=== PATIENT | female | born 1945 | race Hispanic/Latino ===

== ENCOUNTER 2018-05-21 14:28 | Inpatient (IN) | payer MEDICAID, SELFPAY ==
[2018-05-21 15:13] LABS: #Eosinphils 0.1 thou/uL (0.0-0.7); #Lymphocytes 0.9 thou/uL (1.20-3.40); #Monocytes 0.5 thou/uL (0.11-0.59); %Basophils 0.4 % (0.0-1.0); %Eosinophils 1.3 % (0.0-10.0); %Lymphocytes 13.8 % (21.0-51.0); %Monocytes 7.6 % (0.0-10.0); %Neutrophils 76.9 % (42.0-75.0); Hemoglobin 12.5 g/dL (12.0-16.0); Mean Corpuscular Hemoglobin 32.2 pg (27.0-31.0); Platelet Count 274 thou/uL (130-400); RBC Distribution Width 12.1 % (11.5-14.5); Red Blood Cell (RBC) Count 3.87 mill/uL (4.20-5.40); White Blood Cell (WBC) Count 6.5 thou/uL (4.8-10.8)
[2018-05-21 15:23] LABS: INR-International Normal Ratio 2.3; PTT 44.2 SEC (22.9-36.1); Prothrombin Time 25.7 SEC (12.0-14.7)
[2018-05-21 15:34] LABS: ALT (SGPT) 10 U/L (8-55); AST (SGOT) 18 U/L (5-34); Albumin 3.7 g/dL (3.4-4.8); Alkaline Phosphatase 49 U/L (40-150); Anion Gap 12 mmol/L (10-20); BUN (Urea Nitrogen) 10 mg/dL (9.8-20.1); Bilirubin, Total 1.6 mg/dL (0.2-1.2); Calc. Creatinine Clearance 0 mL/min (70-130); Calcium 8.9 mg/dL (7.8-10.44); Carbon Dioxide 29 mmol/L (23-31); Chloride 104 mmol/L (98-107); Estimated GFR-MDRD 77; Globulin 3.3 g/dL (2.4-3.5); Glucose 101 mg/dL (83-110); Potassium 3.6 mmol/L (3.5-5.1); Sodium 141 mmol/L (136-145)
[2018-05-21] MEDS ORDERED: Piperacillin/Tazobactam 4.5 GM VIAL ONE (17:20)
--- NOTE | 2018-05-21 18:31 | RAD ---
RIGHT KNEE FOUR VIEWS: HISTORY: Fall. Injury. COMPARISON: None. FINDINGS: There is a small joint effusion. There is extensive prepatellar soft tissue swelling. Advanced levin llofemoral degenerative disease. Mild medial and lateral compartment degenerative changes, including osteophyte formation and subchondral sclerosis. IMPRESSION: 1. Extensive anterior soft tissue swelling may reflect a hematoma given the history of injury. No d isplaced fracture is appreciated. 2. Advanced patellofemoral and moderate medial and lateral compartment degenerative changes. POS: [facility]
--- NOTE | 2018-05-21 19:07 | ULT ---
RIGHT LOWER EXTREMITY VENOUS DOPPLER: HISTORY: Injury. Pain. Edema. Swelling. COMPARISON: None. TECHNIQUE: Real-time, bryant-scale, color Doppler, and spectral analysis of the right lower extremity venous syste m was performed. The common femoral, femoral, proximal portion, greater saphenous, and deep femoral veins, as well as the popliteal and posterior tibial veins were interrogated. FINDINGS: Normal flow, augmentation, and compression. IMPRESSION: 1. No deep venous thrombosis. 2. Mild lower extremity edema. POS: [facility]
[2018-05-21] MEDS ORDERED: Ondansetron ODT 4 MG TAB PO PRN (20:20)
--- NOTE | 2018-05-21 21:05 | PDOC.FPRHP ---
- History of Present Illness Chief Complaint: right leg wound History of Present Illness: Ms. Lemon is a very pleasant 73YO female with a PMH significant for CHF , atrial fibrillation on chronic anticoagulation with warfarin, and bilateral chronic venous insufficiency who presented to the ED with a chief complaint of a right leg wound that has been worsening since she fell at home about 2 weeks ago. The patient is Portuguese speaking only so the history was obtained from her daughters who reported that 2 weeks ago the patient was sweeping in the house and tripped over a broom hitting her right knee on the floor. Since the fall, the patient had significant swelling, bruising and blistering over her right knee. The daughters reported that over the course of the 2 weeks, the blisters burst leaving behind a dark discoloration over her knee. In addition, over the last week they began to notice progressively worsening swelling and erythema that started at her knee and moved all the way down to her ankle. Lastly, for the last 3 days they noticed some discoloration in her toes in her right foot. The patient denies any leg pain other than when her leg is pushed on or touched. She also denies any associated fever, chills, decreased PO intake, or any numbness, tingling, or decreased ROM in her right leg. Daughters also deny seeing any purulent discharge from the room and have been treating it with neosporin and hibiclens at home. Of note, the patient was seen in the [facility] today and was told to come to the ED as she would more than likely require a surgical debridement and wound care in the hospital. ED Course: The patient was given one dose of IV vancomycin and zosyn. General Surgery, Dr. Alegria, was also consulted and made aware of the patient's condition. - Allergies/Adverse Reactions Allergies Allergy/AdvReac Type Severity Reaction Status Date / Time No Known Allergies Allergy Verified 05/21/18 21:55 - Home Medications Medication Instructions Recorded Confirmed Type Cholecalciferol (Vitamin D3) 400 unit PO DAILY 09/16/14 05/21/18 History [Vitamin D3] Furosemide 20 mg PO DAILY 09/16/14 05/21/18 History Simvastatin [Zocor] 10 mg PO HS 09/16/14 05/21/18 History Warfarin Sodium [Coumadin] 5 mg PO DAILY 12/16/14 08/20/18 History Lisinopril 10 mg PO DAILY 05/21/18 05/21/18 History Metoprolol Tartrate [Lopressor] 50 mg PO BID 05/21/18 05/21/18 History Warfarin Sodium 2.5 mg PO Q7DAYS 05/21/18 05/21/18 History - History PMHx: CHF, atrial fibrillation on warfarin for anticoagulation, chronic venous insufficiency in B/L LEs PSHx: Tiffanie, C/S, hysterectomy FHx: Mother- Colon CA Sister - ovarian CA daughter - uterine CA Social: Lives at home with her daughter. Is fully independent with ADLs & IADLs. No history of tobacco, EtOH, or drug use. - Review of Systems General: denies: fever/chills, weight/appetite/sleep changes Eyes: denies: vision changes ENT: denies: nasal congestion Respiratory: denies: cough, shortness of breath Cardiovascular: reports: edema. denies: chest pain Gastrointestinal: denies: nausea, vomiting, diarrhea, constipation, abdominal pain Genitourinary: reports: other (no hematuria). denies: dysuria Skin: reports: lesions, itching Musculoskeletal: reports: tenderness, swelling. denies: pain, stiffness Neurological: denies: numbness, weakness Psychological: denies: anxiety, depression - Vital signs BP: 130/83 HR: 81 RR: 18 Tmax: 98.3F Pox: 96% on RA Wt: 66.7kg - Physical Exam Constitutional: NAD, awake, alert and oriented, well developed HEENT: normocephalic and atraumatic, PERRLA, grossly normal vision, grossly normal hearing, MMM, oropharynx clear, other (B/L cataracts) Neck: supple, FROM, no LAD Heart: RRR, normal S1/S2, no murmurs/rubs/gallops, pulses present Lungs: CTAB, no respiratory distress, good air movement, no rales/rhonchi, no wheezing Abdomen: soft, non-tender, bowel sounds present, no masses/distention Musculoskeletal: ROM grossly normal Neurological: no focal deficit, CN II-XII intact, normal sensation Skin: other (Large [id number] eschar over the right knee. Right lower leg was warm to the touch with ~1+ pitting edema and erythema extending about 48cm down her leg from her knee and 15cm wide. Pulse present in B/L LEs. Normal sensation and ROM in RLE.) Heme/Lymphatic: other (Large ecchymosis over posterior right leg just above the knee and ecchymosis over 2nd-4th digits of right foot.) Psychiatric: normal mood and affect, good judgment and insight, intact recent and remote memory FMR H&P: Results - Labs Result Diagrams: 05/22/18 06:20 05/21/18 15:05 Lab results: WBC 6.5 thou/uL (4.8-10.8) 05/21/18 15:05 Hgb 12.5 g/dL (12.0-16.0) 05/21/18 15:05 Hct 36.8 % (36.0-47.0) 05/21/18 15:05 MCV 95.0 fL (78.0-98.0) 05/21/18 15:05 Plt Count 274 thou/uL (130-400) 05/21/18 15:05 Neutrophils % 76.9 % (42.0-75.0) H 05/21/18 15:05 Sodium 141 mmol/L (136-145) 05/21/18 15:05 Potassium 3.6 mmol/L (3.5-5.1) 05/21/18 15:05 Chloride 104 mmol/L (98-107) 05/21/18 15:05 Carbon Dioxide 29 mmol/L (23-31) 05/21/18 15:05 BUN 10 mg/dL (9.8-20.1) 05/21/18 15:05 Creatinine 0.74 mg/dL (0.6-1.1) 05/21/18 15:05 Glucose 101 mg/dL (83-110) 05/21/18 15:05 Lactic Acid 1.1 mmol/L (0.5-2.2) 05/21/18 15:01 Calcium 8.9 mg/dL (7.8-10.44) 05/21/18 15:05 Total Bilirubin 1.6 mg/dL (0.2-1.2) H 05/21/18 15:05 AST 18 U/L (5-34) 05/21/18 15:05 ALT 10 U/L (8-55) 05/21/18 15:05 Alkaline Phosphatase 49 U/L (40-150) 05/21/18 15:05 Serum Total Protein 7.0 g/dL (6.0-8.3) 05/21/18 15:05 Albumin 3.7 g/dL (3.4-4.8) 05/21/18 15:05 - Radiology Interpretation Other Status: report reviewed by me (R knee x-ray: extensive pre-patellar soft tissue swelling & a small joint effusion) FMR H&P: A/P - Problem List (1) Cellulitis of right lower leg Current Visit: Yes Status: Acute Code(s): L03.115 - CELLULITIS OF RIGHT LOWER LIMB (2) Atrial fibrillation Current Visit: No Status: Acute Code(s): I48.91 - UNSPECIFIED ATRIAL FIBRILLATION (3) CHF (congestive heart failure) Current Visit: Yes Status: Chronic Code(s): I50.9 - HEART FAILURE, UNSPECIFIED Qualifiers: Heart failure chronicity: chronic (4) Hypertension Current Visit: No Status: Chronic Code(s): I10 - ESSENTIAL (PRIMARY) HYPERTENSION (5) Hyperlipidemia Current Visit: No Status: Chronic Code(s): E78.5 - HYPERLIPIDEMIA, UNSPECIFIED - Plan 73YO female with a PMH significant for CHF, atrial fibrillation on warfarin, and chronic venous insufficiency who presented to the ED with a chief complaint of a right leg wound that has gotten progressively worse over the last 2 weeks after falling in her home. 1. RLE cellulitis: - Afebrile with NL WBC count. However, leg appears infected and is warm, erythematous, and edematous compared to the left. Was started on IV vancomycin & zosyn in the ED. Will also continue tylenol PRN for pain. - Will continue BS Abx coverage with vancomycin & zosyn. - Will trend CBCs with AM labs & continue to monitor vitals. - General surgery consulted by ED but an additional consult was ordered by us as well. - Wound care consulted. - Will make NPO after midnight pending possible surgical debridement tomorrow. 2. Atrial fibrillation on warfarin: - INR today in clinic and in the ED was measured at 2.3. - Will continue to monitor QD INR & PT levels. - Will hold tomorrow's warfarin dose pending possible surgery. - Will resume home dosing post-op or sooner if surgery decides on bedside debridement. 3. CHF: - Aware, patient not in acute exacerbation. - Will resume home meds. 4. HTN: - Aware. Will resume home meds. 5. HLD: - Aware. Will resume home meds. FMR H&P: Upper Level - Pertinent history Emperatriz Lemon is a 73 year old female who presents to the ED with a chief complaint of a right lower extremity wound. She fell 2 weeks ago and has noted worsening calf pain and redness one week ago with. She has also had increased eschar over her knee. Patient has been seen in clinic for this wound and outpatient wound care was attempted, but could not be arranged. Patient was seen in clinic earlier this afternoon and was directed to the ED. She has been self-treating the wound with neosporin and hibiclens. She has a history of atrial fibrillation and has been on anticoagulation with Warfarin for several years. She lives at home with her daughter, and is able to complete most ADLs. She denies fevers, chills, and pain. - Pertinent findings Vitals: BP: 110/73 P: 83 SpO2: 95% on RA. T: 98.2 Physical Exam: General: alert and oriented x 3 in no apparent distress. Heart: regular rate and rhythm. Lungs: clear to auscultation bilaterally. Extremities: right lower extremity with 19x10 cm area of eschar over the anterior knee and 48 x 15 cm area area of erthema extending the anterior right leg from just above the right knee to her ankle. Increase warmth in RLE compared to LLE. RLE doppler - negative for DVT RLE x-ray - soft tissue swelling INR: 2.3 WBC: 6.5 - Plan Date/Time: 05/21/182102 Rhea Carvajal, have evaluated this patient and agree with findings/plan as outlined by sourcing intern resident. Pertinent changes/additions are listed here. Cellulitis with central area of necrosis/eschar - continue Vancomycin and Zosyn - General surgery has been consulted for possible debridement. We will hold warfarin in anticipation of procedure. - likely related to trauma from fall; unlikely related to Warfarin necrosis given the fact that she has been on warfarin for several years. - Blood cultures/wound cultures pending. - Wound care has been consulted. Atrial fibrillation - rate controlled. - continue home metoprolol - warfarin held; Heparin gtt. Hypertension - will continue to monitor BPs. - Resume home meds Hyperlipidemia - resume home meds. DVT proph: Heparin gtt.
[2018-05-21] MEDS ORDERED: Heparin 10,000 UNITS/ 10 ML VIAL SLOW IVP SCH (22:15)
[2018-05-21] MEDS ORDERED: Heparin 25,000 units/D5W 500 ML IVPB SCH (22:15)
[2018-05-21 22:23] VITALS: BMI 27.4
[2018-05-21 22:28] LABS: Hemoglobin 11.4 g/dL (12.0-16.0); Platelet Count 250 thou/uL (130-400)
--- NOTE | 2018-05-21 22:46 | PDOC.EVN ---
Event Note - Event Note Event Note: 73 yo LAF with h/o a-fib on warfarin, CHF, venous insufficiency presents from clinic for redness, swelling of her right lower extremity. Patient has history of fall onto her knee 2 weeks ago. She then developed skin blisters which eventually popped and the skin sloughed. She noticed redness extending down her leg for last 3-4 days. Denies any fever/chills. Denies any pain. Has been able to ambulate without difficulty. PMH/PSH/Meds/All/SH reviewed and agree with resident's documentation. Afebrile P87 RR18 BP 135/86 O2=95% RA Exam repeated by me and agree with resident's documentation- significant for large eschar over knee; area of erythema and warmth over anterior lower leg. (+) edema. Nontender. Labs WBC=6.5, PT/INR= 25.7/2.3, PTT=44.9; lactic acid= 1.1. Venous doppler- negative for DVT; Knee x-ray- extensive soft tissue dwelling. A/P: 1) Left knee swelling and wound with large eschar/cellulitis- continue vanc /zosyn. Wound care consult. Surgery consult in AM for possible debridement. 2) Warfarin therapy- has been on warfarin for many years; unlikely to have warfarin skin necrosis; hold for now in anticipation of possible surgery 3) A-Fib- hold warfarin and start heparin.
[2018-05-21] MEDS: Piperacillin/Tazobactam 3.375 GM in Sodium Chloride 0.9% 100 ML IVPB SCH (23:59)
--- NOTE | 2018-05-22 06:04 | PDOC.FM ---
- Subjective Subjective: No acute events overnight. Patient states RLE is no longer painful. Per daughters who were at the bedside, the RLE redness has decreased significantly. Patient denies any SOB, chest or abdominal pain, subjective fever, NVD. - Objective Vital Signs & Weight: Vital Signs (12 hours) Temp Pulse Resp BP Pulse Ox 05/22/18 00:28 98.5 F 75 18 94/57 L 95 05/21/18 20:20 98.5 F 75 18 135/86 95 Weight Weight 65.913 kg Result Diagrams: 05/22/18 06:20 05/21/18 15:05 <Minerva Rodriguez - Last Filed: 05/22/18 12:02> - Objective Vital Signs & Weight: Vital Signs (12 hours) Temp Pulse Resp BP BP BP Pulse Ox 05/22/18 12:14 97.8 F 80 16 96/67 97 05/22/18 08:36 98.4 F 80 16 133/76 94 L 05/22/18 07:25 98.4 F 80 16 133/76 94 L 05/22/18 04:23 98.2 F 76 18 122/74 95 05/22/18 00:28 98.5 F 75 18 94/57 L 95 Weight Admit Weight 65.913 kg Weight 65.913 kg Result Diagrams: 05/22/18 06:20 05/21/18 15:05 <Jose D Lester - Last Filed: 05/22/18 12:30> Phys Exam - Physical Examination Constitutional: NAD resting comfortably HEENT: PERRLA, moist MMs, sclera anicteric bilateral cataracts Neck: no JVD, supple, full ROM Respiratory: no wheezing, no rales, clear to auscultation bilateral Cardiovascular: RRR, no significant murmur, no rub Gastrointestinal: soft, non-tender, no distention, positive bowel sounds RLE pulses faint, 1+ nonpitting edema in RLE strength intact in BLE Neurological: normal sensation, moves all 4 limbs Psychiatric: A&O x 3 Deviation from normal: RLE warm to touch with erythema, ecchymosis in toes -: Large [id number] eschar over the right knee; dry <Minerva Rodriguez - Last Filed: 05/22/18 12:02> Dx/Plan (1) Cellulitis of right lower leg Code(s): L03.115 - CELLULITIS OF RIGHT LOWER LIMB Status: Acute (2) Atrial fibrillation Code(s): I48.91 - UNSPECIFIED ATRIAL FIBRILLATION Status: Acute (3) CHF (congestive heart failure) Code(s): I50.9 - HEART FAILURE, UNSPECIFIED Status: Chronic Qualifiers: Heart failure chronicity: chronic (4) Hyperlipidemia Code(s): E78.5 - HYPERLIPIDEMIA, UNSPECIFIED Status: Chronic (5) Hypertension Code(s): I10 - ESSENTIAL (PRIMARY) HYPERTENSION Status: Chronic - Plan Plan: 73YO female with a PMH significant for CHF, atrial fibrillation on warfarin, and chronic venous insufficiency who presented to the ED with a chief complaint of a right leg wound that has gotten progressively worse over the last 2 weeks after falling in her home. Plan is for debridement today -we will f /u s/p procedure. RLE cellulitis - Afebrile with NL WBC count. However, RLL is warm, erythematous, and edematous compared to the left. Was started on IV vancomycin & zosyn in the ED. Will also continue tylenol PRN for pain. - Will continue BS Abx coverage with vancomycin & zosyn. - Will trend CBCs with AM labs & continue to monitor vitals. - General surgery consulted - Wound care consulted - Will make NPO after midnight pending possible surgical debridement tomorrow. Atrial fibrillation on warfarin - INR today in clinic and in the ED was measured at 2.3->2.5. - Will continue to monitor QD INR & PT levels. - Heparin drip stopped. Will start heparin 5000 TID. 1gm Vit K administered to get INR subtherapeutic before debridement procedure. - Will resume home dosing post-op or sooner if surgery decides on bedside debridement. CHF - Patient not in acute exacerbation. - Will resume home meds. HTN - Will resume home meds. HLD - Will resume home meds. DISPO: likely stay a few days. We will proceed with wound care, gen surg and ortho recs CODE: DNR Case discussed with Trevon <Minerva Rodriguez - Last Filed: 05/22/18 12:02> Attending Addendum - Attending Addendum Date/Time: 05/22/18 1222 I personally evaluated the patient and discussed the management with Dr. Rodriguez. I agree with the History, Examination, Assessment and Plan documented above with any addition or exceptions noted below. Patient here with very significant skin necrosis and eschar over the R knee. General Surgery has been consulted who recommends Ortho, so we will get them on board. Continue antibiotics for her likely cellulitis, Vanc and Zosyn. Will transition to Heparin and off warfarin for now, and give Vitamin K to help make her INR more appropriate for surgery. Pain control as needed. <Jose D Lester - Last Filed: 05/22/18 12:30>
[2018-05-22] MEDS: Piperacillin/Tazobactam 3.375 GM in Sodium Chloride 0.9% 100 ML IVPB SCH ×3 (06:07→17:56)
[2018-05-22] MEDS: Vancomycin HCl 1 GM in Premix Bag 1 BAG IVPB SCH ×2 (06:13→17:59)
[2018-05-22 06:31] LABS: #Basophils 0.1 thou/uL (0.0-0.2); #Eosinphils 0.2 thou/uL (0.0-0.7); #Lymphocytes 0.9 thou/uL (1.20-3.40); #Monocytes 0.4 thou/uL (0.11-0.59); #Neutrophils 3.8 thou/uL (1.40-6.50); %Basophils 0.9 % (0.0-1.0); %Eosinophils 3.3 % (0.0-10.0); %Lymphocytes 17.1 % (21.0-51.0); %Monocytes 8.1 % (0.0-10.0); %Neutrophils 70.6 % (42.0-75.0); Hemoglobin 11.1 g/dL (12.0-16.0); Mean Corpuscular HGB CONC 33.8 g/dL (32.0-36.0); Mean Corpuscular Hemoglobin 32.2 pg (27.0-31.0); Mean Corpuscular Volume 95.2 fL (78.0-98.0); Mean Platelet Volume 6.9 fL (7.4-10.4); Platelet Count 241 thou/uL (130-400); Red Blood Cell (RBC) Count 3.46 mill/uL (4.20-5.40); White Blood Cell (WBC) Count 5.4 thou/uL (4.8-10.8)
[2018-05-22 06:44] LABS: INR-International Normal Ratio 2.5; Prothrombin Time 27.4 SEC (12.0-14.7)
--- NOTE | 2018-05-22 08:07 | CON ---
DATE OF CONSULTATION: 05/22/2018 CHIEF COMPLAINT: Cellulitis and necrosis of right knee. HISTORY OF PRESENT ILLNESS: The patient is a 73-year-old female who tripped over a broom and fell ag ainst her right knee, developed a hematoma as she is on Coumadin. Over time she developed not only b listers, but necrosis of the skin in this area, then she developed lower leg swelling and erythema, n o fever. PAST MEDICAL HISTORY: Congestive heart failure, atrial fibrillation, chronic anticoagulation, venous insufficiency. PAST SURGICAL HISTORY: Cholecystectomy, section, total abdominal hysterectomy. FAMILY HISTORY: Colon cancer, ovarian cancer, uterine cancer. SOCIAL HISTORY: She speaks Urdu only. Lives with her daughter. No tobacco or alcohol. PHYSICAL EXAMINATION: VITAL SIGNS: Temperature 98.4, pulse 80, blood pressure 133/76. GENERAL: She is an elderly female, lying still. HEENT: She has some alopecia. LUNGS: Clear. HEART: Regular rate and rhythm. ABDOMEN: Soft, nondistended, nontender. EXTREMITIES: She has a palpable femoral pulse on the right lower leg, there is an x 15 cm necrotic e schar on the anterior surface overlying the knee. There is soft tissue swelling and erythema that ex tends to the foot. The dorsalis pedis pulse on the right is faintly palpable. It is easily palpable on the left. She has cellulitis that extends to the foot and some ecchymosis of the middle toes 2 t hrough 4. LABORATORY AND X-RAY FINDINGS: Her white count is 5.4, H&H 11 and 33, platelet count 241. Electroly anamaria are fine. She had a culture of the area that was negative. Her PT is 27.4 with an INR of 2.5, a nd she is also on a heparin drip. She had a vascular ultrasound showing no DVT. ASSESSMENT: Necrotic eschar of the right knee. PLAN: Consultation to Orthopedics to ensure that the joint is not involved. Also, will need to allo w her Coumadin to reverse, then she will probably need debridement with a wound VAC. Continue antibi otics and elevation.
[2018-05-22] MEDS: Furosemide 20 MG TAB PO SCH (08:36)
[2018-05-22] MEDS: Metoprolol Tartrate 50 MG TAB PO SCH ×2 (08:36→21:19)
[2018-05-22] MEDS: Lisinopril 10 MG TAB PO SCH (08:36)
[2018-05-22] MEDS: Cholecalciferol (Vitamin D3) 400 UNITS TAB PO SCH (08:36)
[2018-05-22] MEDS ORDERED: Phytonadione 1 MG in Sodium Chloride 0.9% 50 ML IVPB SCH (10:30)
[2018-05-22] MEDS: Acetaminophen 325 MG TAB PO PRN (10:41)
--- NOTE | 2018-05-22 14:21 | CON ---
DATE OF CONSULTATION: 05/22/2018 CHIEF COMPLAINT: Right knee pain. HISTORY OF PRESENT ILLNESS: Ms. Lemon is a pleasant 73-year-old female. She is on warfarin chronical ly. She has atrial fibrillation. She had a contusion to the anterior knee approximately 2 weeks ago . This became extremely swollen and she developed a large hematoma. She developed blistering as wel l. Over the last 2 weeks, she has had a worsening skin condition with eschar formation. She present ed with a large blackened eschar with surrounding erythema and warmth. She has been admitted to the hospital. She is on vancomycin and Zosyn currently. Her family is at the bedside. PAST MEDICAL HISTORY: Chronic atrial fibrillation on warfarin, venous insufficiency of the bilateral lower extremities and congestive heart failure. PAST SURGICAL HISTORY: Cholecystectomy, hysterectomy, and section. FAMILY MEDICAL HISTORY: Colon cancer. SOCIAL HISTORY: The patient lives with her family. She denies tobacco, alcohol, or drug use. REVIEW OF SYSTEMS: Positive for right leg pain, otherwise negative for 10-point review of systems. PHYSICAL EXAMINATION: VITAL SIGNS: Temperature is 97.8, pulse is 80, respiratory rate 16, and blood pressure is 96/67. GENERAL: She is sitting upright at the edge of the bed. No apparent distress. Family was with her. HEENT: Normocephalic, atraumatic. RESPIRATORY: Breathing comfortably. ABDOMEN: Soft, nontender, nondistended. CARDIOVASCULAR: Pulses are palpable peripherally. MUSCULOSKELETAL: The patient's right knee has edematous appearance extending down to the ankle and f oot. She has erythema from the foot up to the knee. She is slightly tender to palpation along the a nterior skin. She is able to flex and extend the foot and ankle. She has a large approximately 15 c m eschar over the anterior medial knee, this appears to be full-thickness skin loss. The eschar is d ry. There is no purulence. No pus is evident. She is able to flex and extend the knee. There are no open wounds except for the eschar. IMPRESSION: Large eschar with skin necrosis from hematoma in a patient with anticoagulation. PLAN: At this point, I think the patient should continue her intravenous antibiotics. She should co ntinue these until she has clear response and hopefully can be converted to oral antibiotics. Regard ing her necrotic skin and eschar, for now I would leave this alone. If this stays dry, we can serve as a protective barrier and hopefully she will heal underneath the eschar. I would expect the edges of the eschar to began to peel back as she heals. If she developed a wet eschar with infection under neath this would need to be surgically debrided. This would put her at risk for having an open knee joint. She would need skin grafting at this point as well. For now, the best treatment again will b e nonoperative, continuing antibiotics and wound care as needed. We will continue to follow.
[2018-05-22] MEDS: Heparin 5,000 UNITS/ML VIAL SC SCH ×2 (15:51→21:16)
[2018-05-22] MEDS ORDERED: Non-Formulary Item 1 EACH (Simvastatin [Zocor] 10 MG) PO SCH (21:00)
[2018-05-22] MEDS: Simvastatin 20 MG TAB PO SCH (21:13)
[2018-05-23] MEDS: Piperacillin/Tazobactam 3.375 GM in Sodium Chloride 0.9% 100 ML IVPB SCH ×5 (00:21→23:43)
--- NOTE | 2018-05-23 05:31 | PDOC.FM ---
- Subjective Subjective: No events overnight. States her pain is improved and she does feel a throbbing sensation on her medial right knee. No other complaints. She was able to ambulate to the bathroom and had a BM. She denies extremity pain, SOB, chest or abdominal pain, fever, or NVD. - Objective Vital Signs & Weight: Vital Signs (12 hours) Temp Pulse Resp BP Pulse Ox 05/23/18 04:49 98.1 F 62 20 133/77 95 05/23/18 00:20 97.8 F 65 20 116/69 92 L 05/22/18 21:16 98.3 F 72 24 H 94 L 05/22/18 21:07 98.3 F 72 24 H 115/70 94 L Weight Admit Weight 65.913 kg Weight 65.913 kg I&O: 05/21/18 05/22/18 05/23/18 06:59 06:59 06:59 Intake Total 1130 Balance 1130 Result Diagrams: 05/23/18 05:28 05/23/18 05:28 <Minerva Rodriguez - Last Filed: 05/23/18 10:09> - Objective Vital Signs & Weight: Vital Signs (12 hours) Temp Pulse Resp BP BP BP Pulse Ox 05/23/18 11:36 97.9 F 70 16 103/68 99 05/23/18 08:53 124/77 05/23/18 07:18 97.9 F 85 18 124/77 91 L 05/23/18 04:49 98.1 F 62 20 133/77 95 05/23/18 00:20 97.8 F 65 20 116/69 92 L Weight Admit Weight 65.913 kg Weight 65.913 kg I&O: 05/22/18 05/23/18 05/24/18 06:59 06:59 06:59 Intake Total 1910 Balance 1910 Result Diagrams: 05/23/18 05:28 05/23/18 05:28 <Jose D Lester - Last Filed: 05/23/18 12:14> Phys Exam - Physical Examination Constitutional: NAD resting comfortably HEENT: PERRLA, moist MMs, sclera anicteric Neck: no JVD, supple, full ROM Respiratory: no wheezing, no rales, no rhonchi, clear to auscultation bilateral Cardiovascular: RRR, no significant murmur, no rub Gastrointestinal: soft, non-tender, positive bowel sounds Musculoskeletal: pulses present Neurological: non-focal, normal sensation, moves all 4 limbs Psychiatric: A&O x 3 Skin: no rash Deviation from normal: large eschar on right knee, erythematous on lower leg -: sensation and strength intact <Minerva Rodriguez - Last Filed: 05/23/18 10:09> Dx/Plan (1) Cellulitis of right lower leg Code(s): L03.115 - CELLULITIS OF RIGHT LOWER LIMB Status: Acute (2) Atrial fibrillation Code(s): I48.91 - UNSPECIFIED ATRIAL FIBRILLATION Status: Acute (3) CHF (congestive heart failure) Code(s): I50.9 - HEART FAILURE, UNSPECIFIED Status: Chronic Qualifiers: Heart failure chronicity: chronic (4) Hyperlipidemia Code(s): E78.5 - HYPERLIPIDEMIA, UNSPECIFIED Status: Chronic (5) Hypertension Code(s): I10 - ESSENTIAL (PRIMARY) HYPERTENSION Status: Chronic - Plan Plan: 73YO female with a PMH significant for CHF, atrial fibrillation on warfarin, and chronic venous insufficiency who presented to the ED with a chief complaint of a right leg wound that has gotten progressively worse over the last 2 weeks after falling in her home. RLE cellulitis - Afebrile with NL WBC count. - Will continue BS Abx coverage with IV vancomycin & zosyn. - Will trend CBCs with AM labs & continue to monitor vitals. - General surgery consulted: recommend wound vac and consulted ortho and wound care - Ortho recs: continue IV abx, no debridement at this time - Wound care consulted - Will touch base with specialists for how to proceed Atrial fibrillation on warfarin - INR today in clinic and in the ED was measured at 2.3->2.5->1.4 - Will continue to monitor QD INR & PT levels. - On start heparin 5000 TID. Will touch base with gen surgery to see if we can start back on warfarin. CHF - Patient not in acute exacerbation. - Will resume home meds. HTN - Will resume home meds. HLD - Will resume home meds. DISPO: likely stay a few days. We will proceed with wound care, gen surg and ortho recs CODE: DNR Case discussed with Trevon <Minerva Rodriguez - Last Filed: 05/23/18 10:09> Attending Addendum - Attending Addendum Date/Time: 05/23/18 1213 I personally evaluated the patient and discussed the management with Dr. Rodriguez. I agree with the History, Examination, Assessment and Plan documented above with any addition or exceptions noted below. Patient doing well and denies pain. It appears that we are going for non operative mgmt at this time. Will continue Vanc and Zosyn and wound care. If no plans for surgery, will be ok to restart Coumadin for her afib ppx. Replete K as needed. <Jose D Lester - Last Filed: 05/23/18 12:14>
[2018-05-23 06:01] LABS: #Basophils 0.1 thou/uL (0.0-0.2); #Eosinphils 0.2 thou/uL (0.0-0.7); #Monocytes 0.4 thou/uL (0.11-0.59); #Neutrophils 3.1 thou/uL (1.40-6.50); %Basophils 1.2 % (0.0-1.0); %Eosinophils 4.6 % (0.0-10.0); %Lymphocytes 21.8 % (21.0-51.0); %Monocytes 7.3 % (0.0-10.0); %Neutrophils 65.2 % (42.0-75.0); Hemoglobin 11.4 g/dL (12.0-16.0); Mean Corpuscular HGB CONC 33.7 g/dL (32.0-36.0); Mean Corpuscular Volume 94.9 fL (78.0-98.0); Mean Platelet Volume 7.2 fL (7.4-10.4); Platelet Count 259 thou/uL (130-400); RBC Distribution Width 12.2 % (11.5-14.5); Red Blood Cell (RBC) Count 3.56 mill/uL (4.20-5.40); White Blood Cell (WBC) Count 4.8 thou/uL (4.8-10.8)
[2018-05-23 06:06] LABS: INR-International Normal Ratio 1.4; PTT 34.3 SEC (22.9-36.1); Prothrombin Time 17.3 SEC (12.0-14.7)
[2018-05-23 06:12] LABS: Vancomycin, Trough 16.8 ug/mL
[2018-05-23 06:14] LABS: Anion Gap 13 mmol/L (10-20); BUN (Urea Nitrogen) 10 mg/dL (9.8-20.1); Calc. Creatinine Clearance 70 mL/min (70-130); Calcium 8.7 mg/dL (7.8-10.44); Carbon Dioxide 26 mmol/L (23-31); Chloride 108 mmol/L (98-107); Estimated GFR-MDRD 78; Glucose 98 mg/dL (83-110); Potassium 3.3 mmol/L (3.5-5.1); Sodium 144 mmol/L (136-145)
[2018-05-23] MEDS: Acetaminophen 325 MG TAB PO PRN (06:58)
[2018-05-23] MEDS: Vancomycin HCl 1 GM in Premix Bag 1 BAG IVPB SCH ×2 (07:35→20:13)
[2018-05-23] MEDS ORDERED: Potassium Chloride 20 MEQ TAB PO SCH (08:30)
[2018-05-23] MEDS: Cholecalciferol (Vitamin D3) 400 UNITS TAB PO SCH (08:53)
[2018-05-23] MEDS: Lisinopril 10 MG TAB PO SCH (08:53)
[2018-05-23] MEDS: Heparin 5,000 UNITS/ML VIAL SC SCH ×3 (08:54→20:13)
[2018-05-23] MEDS: Furosemide 20 MG TAB PO SCH (08:54)
[2018-05-23] MEDS: Metoprolol Tartrate 50 MG TAB PO SCH ×2 (08:55→20:13)
[2018-05-23] MEDS ORDERED: Warfarin Sodium 5 MG TAB PO SCH (17:00)
[2018-05-23] MEDS ORDERED: diphenhydrAMINE 25 MG CAP PO PRN (18:16)
[2018-05-23] MEDS: Simvastatin 20 MG TAB PO SCH (20:13)
[2018-05-24 05:24] LABS: INR-International Normal Ratio 1.3; PTT 31.8 SEC (22.9-36.1)
[2018-05-24] MEDS: Piperacillin/Tazobactam 3.375 GM in Sodium Chloride 0.9% 100 ML IVPB SCH ×4 (05:25→23:09)
[2018-05-24 05:29] LABS: #Eosinphils 0.2 thou/uL (0.0-0.7); #Lymphocytes 1.1 thou/uL (1.20-3.40); #Monocytes 0.4 thou/uL (0.11-0.59); #Neutrophils 3.2 thou/uL (1.40-6.50); %Basophils 0.7 % (0.0-1.0); %Eosinophils 4.8 % (0.0-10.0); %Lymphocytes 21.9 % (21.0-51.0); %Monocytes 7.3 % (0.0-10.0); %Neutrophils 65.3 % (42.0-75.0); Hemoglobin 10.9 g/dL (12.0-16.0); Mean Corpuscular HGB CONC 33.4 g/dL (32.0-36.0); Mean Corpuscular Hemoglobin 32.1 pg (27.0-31.0); Mean Platelet Volume 7.2 fL (7.4-10.4); Platelet Count 247 thou/uL (130-400); RBC Distribution Width 12.1 % (11.5-14.5); Red Blood Cell (RBC) Count 3.41 mill/uL (4.20-5.40); White Blood Cell (WBC) Count 4.9 thou/uL (4.8-10.8)
--- NOTE | 2018-05-24 05:41 | PDOC.FM ---
Addendum entered and electronically signed by Minerva Rodriguez MD 05/24/18 09:46 : Will also discuss placement for patient with family such as a SNF to help with wound care, PT/OT between the debridement and skin graft as well as after the skin graft procedure. Original Note: - Subjective Subjective: Patient reported being itchy last night and she was given benadryl. She had no other issues overnight. Patient has no complaints or concerns this morning. She was discussing the plan with Dr. Ring of plastic surgery this morning and she understood the plan. She denies any SOB, chest pain, abdominal pain, NVD or fever. - Objective MAR Reviewed: Yes Vital Signs & Weight: Vital Signs (12 hours) Temp Pulse Resp BP Pulse Ox 05/24/18 04:44 72 16 132/79 94 L 05/24/18 01:04 98.4 F 54 L 21 H 146/75 H 95 05/23/18 21:03 98.2 F 60 20 128/80 96 05/23/18 20:00 97.9 F 81 16 Weight Admit Weight 65.913 kg Weight 65.913 kg I&O: 05/22/18 05/23/18 05/24/18 06:59 06:59 06:59 Intake Total 1909 1919 Balance 1909 1919 Result Diagrams: 05/24/18 05:05 05/24/18 05:02 <Minerva Rodriguez - Last Filed: 05/24/18 09:45> - Objective Vital Signs & Weight: Vital Signs (12 hours) Temp Pulse Resp BP BP BP Pulse Ox 05/24/18 12:00 98.5 F 67 18 131/79 96 05/24/18 08:22 137/80 05/24/18 08:00 98.4 F 83 16 92 L 05/24/18 07:25 98.4 F 83 16 137/80 92 L 05/24/18 04:44 72 16 132/79 94 L 05/24/18 01:04 98.4 F 54 L 21 H 146/75 H 95 Weight Admit Weight 65.913 kg Weight 65.913 kg I&O: 05/23/18 05/24/18 05/25/18 06:59 06:59 06:59 Intake Total 1909 1919 Balance 1909 1919 Result Diagrams: 05/24/18 05:05 05/24/18 05:02 <TrevonJose D Stacie - Last Filed: 05/24/18 12:53> Phys Exam - Physical Examination Constitutional: NAD resting comfortably HEENT: PERRLA, moist MMs, sclera anicteric Neck: supple, full ROM Respiratory: clear to auscultation bilateral Cardiovascular: RRR, no significant murmur, no rub Gastrointestinal: soft, non-tender, no distention, positive bowel sounds Musculoskeletal: no edema, pulses present Neurological: non-focal, normal sensation, moves all 4 limbs sensation and strength intact Psychiatric: normal affect, A&O x 3 Skin: no rash Deviation from normal: large dry escar on right knee, erythema receding on right lower leg <Minreva Rodriguez - Last Filed: 05/24/18 09:45> Dx/Plan (1) Cellulitis of right lower leg Code(s): L03.115 - CELLULITIS OF RIGHT LOWER LIMB Status: Acute (2) Atrial fibrillation Code(s): I48.91 - UNSPECIFIED ATRIAL FIBRILLATION Status: Acute (3) CHF (congestive heart failure) Code(s): I50.9 - HEART FAILURE, UNSPECIFIED Status: Chronic Qualifiers: Heart failure chronicity: chronic (4) Hyperlipidemia Code(s): E78.5 - HYPERLIPIDEMIA, UNSPECIFIED Status: Chronic (5) Hypertension Code(s): I10 - ESSENTIAL (PRIMARY) HYPERTENSION Status: Chronic - Plan Plan: 73YO female with a PMH significant for CHF, atrial fibrillation on warfarin, and chronic venous insufficiency who presented to the ED with a chief complaint of a right leg wound that has gotten progressively worse over the last 2 weeks after falling in her home. Continuing tx with IV abx. RLE cellulitis - Continues to be Afebrile with NL WBC count. - Will continue BS Abx coverage with IV vancomycin & zosyn. Sensitivities came back sensitive to everything. Blood culture has no growth in 48 hours. - Will trend CBCs with AM labs & continue to monitor vitals. - General surgery consulted - Ortho recs - spoke with Dr. Saul yesterday. He talked with plastic surgery who recommend debridement followed by skin grafting. - Talked with Dr. Ring of plastic surgery this morning: plan is to do debridement tomorrow and skin graft in 2 weeks. - Wound care consulted - Will touch base with specialists for how to proceed Atrial fibrillation on warfarin - INR today in clinic and in the ED was measured at 2.3->2.5->1.4->1.3; aPTT 31.8 - Will continue to monitor QD INR & PT levels. - On start heparin 10,000 BID. Will continue with heparin due to debridement procedure and future skin graft. CHF - Patient not in acute exacerbation. - Will resume home meds. HTN - Will resume home meds. HLD - Will resume home meds. DISPO: likely stay a few days. We will proceed with wound care, gen surg and ortho recs CODE: DNR Case discussed with Trevon <Minerva Rodriguez - Last Filed: 05/24/18 09:45> Attending Addendum - Attending Addendum Date/Time: 05/24/18 7997 I personally evaluated the patient and discussed the management with Dr. Rodriguez. I agree with the History, Examination, Assessment and Plan documented above with any addition or exceptions noted below. Patient denies complaints. Her cellulitis is improving and will continue Vanc/ Zosyn, no evidence of systemic infection at this time. She is scheduled for debridement tomorrow afternoon. Pain control as needed. Will make changes to her Heparin therapy to attain therapeutic aPTT. Hold coumadin due to surgery. Will likely need future discussion about SNF or Rehab between upcoming surgery and revision with skin grafting in 2 weeks. Further recs after surgery. <Jose D Lester - Last Filed: 05/24/18 12:53>
[2018-05-24 05:53] LABS: Anion Gap 11 mmol/L (10-20); BUN (Urea Nitrogen) 12 mg/dL (9.8-20.1); Calc. Creatinine Clearance 65 mL/min (70-130); Calcium 8.7 mg/dL (7.8-10.44); Carbon Dioxide 29 mmol/L (23-31); Chloride 106 mmol/L (98-107); Estimated GFR-MDRD 71; Glucose 90 mg/dL (83-110); Potassium 3.6 mmol/L (3.5-5.1); Sodium 142 mmol/L (136-145)
[2018-05-24] MEDS: Furosemide 20 MG TAB PO SCH (08:21)
[2018-05-24] MEDS: Vancomycin HCl 1 GM in Premix Bag 1 BAG IVPB SCH ×2 (08:21→19:46)
[2018-05-24] MEDS: Cholecalciferol (Vitamin D3) 400 UNITS TAB PO SCH (08:21)
[2018-05-24] MEDS: Metoprolol Tartrate 50 MG TAB PO SCH ×2 (08:22→19:44)
[2018-05-24] MEDS: Lisinopril 10 MG TAB PO SCH (08:22)
[2018-05-24] MEDS: Heparin 5,000 UNITS/ML VIAL SC SCH (08:22)
--- NOTE | 2018-05-24 08:53 | CON ---
DATE OF CONSULTATION: 05/24/2018. CHIEF COMPLAINT: Right knee and thigh wound. HISTORY OF PRESENT ILLNESS: The patient is a 73-year-old female who is on Coumadin for atri al fibrillation. She fell and bumped her knee a couple of weeks ago sustaining a hematoma. Since , she has developed an eschar and appears to have full thickness loss of skin over her knee and rig ht thigh. She is being treated in the hospital for surrounding cellulitis. She is on vancomycin and Zosyn. PAST MEDICAL HISTORY: As above plus venous insufficiency and heart failure. PAST SURGICAL HISTORY: Cholecystectomy, hysterectomy and section. FAMILY HISTORY: Family history of colon cancer. SOCIAL HISTORY: The patient lives with family. She speaks [place]. Denies alcohol or tobacco. REVIEW OF SYSTEMS: Significant for right lower extremity pain, otherwise negative. PHYSICAL EXAMINATION: VITAL SIGNS/MEDICATIONS: Reviewed in the chart. GENERAL: The patient is a well-nourished, well-developed female who interacts appropriately with her family. HEENT: Normocephalic, atraumatic. Pupils equal, round, reactive to light. CARDIOVASCULAR: The patient has distal pulses. SKIN: There is a large black eschar over her right knee and thigh. The surrounding skin has some er ythema. By the drawings and the family's history this has gotten somewhat better. IMPRESSION: Large full thickness loss of skin over the right knee and thigh. I discussed the findin gs with the patient through the aid of her family. She has a large eschar. There are multiple appro aches to this. I feel that debridement is going to give the patient the quickest resolution. The co ncern of keeping the eschar at this point in the face of the cellulitis is that this will ultimately get worse and jeopardize her extremity. The advantage of debridement will be that it will accelerate the wound healing. Hopefully, the debridement will be only skin. PLAN: The plan would be to debride the wound, place a wound VAC and then after all signs of infectio n have resolved do a split-thickness skin grafting. I do not believe that the debridement will pose a greater risk of an open wound joint and thus an infected joint over her current situation which has a surrounding cellulitis with neighboring skin. I discussed this with the patient's care team.
[2018-05-24] MEDS ORDERED: Heparin 5,000 UNITS/ML VIAL SC SCH ×2 (10:45→21:00)
[2018-05-24] MEDS: Heparin 10,000 UNITS/1 ML VIAL SC SCH ×2 (12:11→19:45)
[2018-05-24] MEDS: Acetaminophen 325 MG TAB PO PRN (12:13)
[2018-05-24] MEDS: Simvastatin 20 MG TAB PO SCH (19:46)
[2018-05-25 04:04] LABS: #Basophils 0.1 thou/uL (0.0-0.2); #Eosinphils 0.3 thou/uL (0.0-0.7); #Lymphocytes 1.4 thou/uL (1.20-3.40); #Monocytes 0.4 thou/uL (0.11-0.59); #Neutrophils 3.2 thou/uL (1.40-6.50); %Eosinophils 4.8 % (0.0-10.0); %Lymphocytes 25.7 % (21.0-51.0); %Monocytes 7.9 % (0.0-10.0); %Neutrophils 60.6 % (42.0-75.0); Hemoglobin 11.2 g/dL (12.0-16.0); Mean Corpuscular HGB CONC 34.3 g/dL (32.0-36.0); Mean Corpuscular Hemoglobin 32.7 pg (27.0-31.0); Mean Corpuscular Volume 95.2 fL (78.0-98.0); Mean Platelet Volume 7.3 fL (7.4-10.4); Platelet Count 257 thou/uL (130-400); RBC Distribution Width 12.2 % (11.5-14.5); Red Blood Cell (RBC) Count 3.42 mill/uL (4.20-5.40); White Blood Cell (WBC) Count 5.3 thou/uL (4.8-10.8)
[2018-05-25 04:15] LABS: INR-International Normal Ratio 1.2; PTT 29.6 SEC (22.9-36.1); Prothrombin Time 15.4 SEC (12.0-14.7)
[2018-05-25] MEDS: Piperacillin/Tazobactam 3.375 GM in Sodium Chloride 0.9% 100 ML IVPB SCH ×3 (05:29→18:25)
--- NOTE | 2018-05-25 05:33 | PDOC.FM ---
- Subjective Subjective: No events overnight. Patient has no complaints or concerns. She denies pain in her right extremity. She denies SOB, chest or abdominal pain, NVD, fever. - Objective MAR Reviewed: Yes Vital Signs & Weight: Vital Signs (12 hours) Temp Pulse Resp BP Pulse Ox 05/25/18 03:57 98 F 66 16 137/87 95 05/24/18 23:46 98.2 F 68 16 128/76 94 L 05/24/18 20:10 98.4 F 70 20 110/71 94 L 05/24/18 20:00 98.4 F 70 20 94 L Weight Admit Weight 65.913 kg Weight 65.913 kg I&O: 05/23/18 05/24/18 05/25/18 06:59 06:59 06:59 Intake Total 1909 1919 2029 Balance 1909 1919 2029 Result Diagrams: 05/25/18 03:13 05/25/18 03:13 <Minerva Rodriguez - Last Filed: 05/25/18 10:53> - Objective Vital Signs & Weight: Vital Signs (12 hours) Temp Pulse Resp BP BP Pulse Ox 05/25/18 09:21 98 F 75 18 95 05/25/18 07:15 98 F 75 18 124/71 95 05/25/18 03:57 98 F 66 16 137/87 95 05/24/18 23:46 98.2 F 68 16 128/76 94 L Weight Admit Weight 65.913 kg Weight 65.913 kg I&O: 05/24/18 05/25/18 05/26/18 06:59 06:59 06:59 Intake Total 1919 2029 Balance 1919 2029 Result Diagrams: 05/25/18 03:13 05/25/18 03:13 <Jose D Lester - Last Filed: 05/25/18 11:31> Phys Exam - Physical Examination Constitutional: NAD resting HEENT: PERRLA, moist MMs Neck: supple, full ROM Respiratory: no wheezing, clear to auscultation bilateral Cardiovascular: RRR, no significant murmur Gastrointestinal: soft, non-tender, no distention, positive bowel sounds Musculoskeletal: no edema, pulses present Neurological: non-focal, moves all 4 limbs Psychiatric: normal affect, A&O x 3 Skin: no rash Deviation from normal: large eschar on right knee, erythema receding on lower leg <Amos Rodrigueztlin - Last Filed: 05/25/18 10:53> Dx/Plan (1) Cellulitis of right lower leg Code(s): L03.115 - CELLULITIS OF RIGHT LOWER LIMB Status: Acute (2) Atrial fibrillation Code(s): I48.91 - UNSPECIFIED ATRIAL FIBRILLATION Status: Acute (3) CHF (congestive heart failure) Code(s): I50.9 - HEART FAILURE, UNSPECIFIED Status: Chronic Qualifiers: Heart failure chronicity: chronic (4) Hypokalemia Code(s): E87.6 - HYPOKALEMIA Status: Acute (5) Hyperlipidemia Code(s): E78.5 - HYPERLIPIDEMIA, UNSPECIFIED Status: Chronic (6) Hypertension Code(s): I10 - ESSENTIAL (PRIMARY) HYPERTENSION Status: Chronic - Plan Plan: 73YO female with a PMH significant for CHF, atrial fibrillation on warfarin, and chronic venous insufficiency who presented to the ED with a chief complaint of a right leg wound that has gotten progressively worse over the last 2 weeks after falling in her home. Continuing tx with IV abx. Debridement today. RLE cellulitis - Continues to be Afebrile with NL WBC count. - Will continue BS Abx coverage with IV vancomycin & zosyn. Sensitivities came back sensitive to everything. Blood culture has no growth in 48 hours. - Will trend CBCs with AM labs & continue to monitor vitals. - General surgery consulted - Ortho recs - Dr. Saul talked with plastic surgery who recommend debridement followed by skin grafting. - Talked with Dr. Ring of plastic surgery yesterday: plan is to do debridement tomorrow and skin graft in 2 weeks. - Wound care consulted - Discussed with family SNF vs home health with wound care/PT options. Will continue to discuss options. CM and Pt consulted. Hypokalemia - Potassium level low at 3.3. Will replace and trend with AM BMP Atrial fibrillation on warfarin - INR today 1.2; aPTT 29.6. - Will continue to monitor QD INR & PT levels. - On heparin 10,000 BID. Will continue with heparin due to debridement procedure and future skin graft. Heparin held last night for debridemnet procedure today. CHF - Patient not in acute exacerbation. - Will resume home meds. HTN - Will resume home meds. HLD - Will resume home meds. DISPO: likely stay a 1-2 more days following debridement. We will proceed with wound care, gen surg and ortho recs CODE: DNR Case discussed with Trevon <Minerva Rodriguez - Last Filed: 05/25/18 10:53> Attending Addendum - Attending Addendum Date/Time: 05/25/18 1130 I personally evaluated the patient and discussed the management with Dr. Rodriguez. I agree with the History, Examination, Assessment and Plan documented above with any addition or exceptions noted below. Patient doing well. No complaints of pain. Infection continues to improve. Will continue antibiotics and await surgical result this afternoon. Wound care on board, and will consult therapy services as she will need that going forward. Other mgmt pending post surgical intervention. <Jose D Lester - Last Filed: 05/25/18 11:31>
[2018-05-25 05:47] LABS: Anion Gap 8 mmol/L (10-20); BUN (Urea Nitrogen) 19 mg/dL (9.8-20.1); Calc. Creatinine Clearance 68 mL/min (70-130); Calcium 8.8 mg/dL (7.8-10.44); Carbon Dioxide 32 mmol/L (23-31); Chloride 106 mmol/L (98-107); Estimated GFR-MDRD 74; Glucose 97 mg/dL (83-110); Potassium 3.3 mmol/L (3.5-5.1); Sodium 143 mmol/L (136-145)
[2018-05-25] MEDS ORDERED: Potassium Chloride 20 MEQ TAB PO SCH ×2 (07:15→21:00)
[2018-05-25] MEDS: Vancomycin HCl 1 GM in Premix Bag 1 BAG IVPB SCH ×2 (08:12→21:09)
[2018-05-25] MEDS: Metoprolol Tartrate 50 MG TAB PO SCH ×2 (08:12→21:09)
[2018-05-25] MEDS: Cholecalciferol (Vitamin D3) 400 UNITS TAB PO SCH (08:58)
[2018-05-25] MEDS: Furosemide 20 MG TAB PO SCH (08:58)
[2018-05-25] MEDS: Heparin 10,000 UNITS/1 ML VIAL SC SCH ×2 (08:59→21:10)
[2018-05-25] MEDS: Lisinopril 10 MG TAB PO SCH (08:59)
[2018-05-25] MEDS ORDERED: Ondansetron HCl/PF 4 MG/2 ML Vial ONE (14:58)
[2018-05-25] MEDS ORDERED: Dexamethasone 20 MG/5 ML VIAL ONE (14:58)
[2018-05-25] MEDS ORDERED: PROPOFOL 200 MG/20 ML VIAL ONE (14:58)
[2018-05-25] MEDS ORDERED: Heparin 10,000 UNITS/1 ML VIAL SC SCH (15:00)
[2018-05-25] MEDS ORDERED: Bupivacaine/Epinephrine 0.25% 30 ML VIAL ONE (16:08)
[2018-05-25] MEDS ORDERED: Bacitracin Zinc Ointment 30 gm TUBE ONE (16:08)
[2018-05-25] MEDS ORDERED: Fentanyl 100 MCG/2 ML VIAL ONE (16:39)
[2018-05-25] MEDS ORDERED: Promethazine HCl 25 MG/ML VIAL SLOW IVP PRN (17:35)
[2018-05-25] MEDS ORDERED: Promethazine HCl 25 MG/ML VIAL IM PRN (17:35)
[2018-05-25] MEDS ORDERED: Ondansetron HCl/PF 4 MG/2 ML Vial IVP PRN (17:35)
[2018-05-25 20:19] LABS: Vancomycin, Trough 18.4 ug/mL
[2018-05-25] MEDS ORDERED: Heparin 5,000 UNITS/ML VIAL SC SCH (21:00)
[2018-05-25] MEDS: Simvastatin 20 MG TAB PO SCH (21:09)
--- NOTE | 2018-05-25 23:14 | OP ---
DATE OF PROCEDURE: 05/21/2018 PREOPERATIVE DIAGNOSES: 1. Skin necrosis, right knee and thigh. 2. Hematoma, right knee and thigh. POSTOPERATIVE DIAGNOSIS: 1. Skin necrosis, right knee and thigh. 2. Hematoma, right knee and thigh. PROCEDURE: Debridement of skin and subcutaneous tissue, right knee and thigh (23683). OPERATIVE FINDINGS: Purulent smelling 200 mL of hematoma. PROCEDURE IN DETAIL: Following induction of adequate anesthesia, the patient was prepped and draped in the usual sterile fashion in the supine position. The patient had a large full-thickness eschar o f her right knee and thigh. This was sharply excised back to viable edges. Underlying hematoma was identified and evacuated. The field was then irrigated with many liters of saline, removing as much of the residual hematoma as possible. The wound was then packed with Betadine-soaked gauze. The isis n will be to get a wound VAC on it in a relatively near future. The patient tolerated the procedure well.
[2018-05-26] MEDS: Piperacillin/Tazobactam 3.375 GM in Sodium Chloride 0.9% 100 ML IVPB SCH ×4 (00:23→18:24)
--- NOTE | 2018-05-26 05:42 | PDOC.FM ---
- Subjective Subjective: Pt reports good rest, pain is well controlled, no concerns per pt. ROS: leg pain per hpi, no fevers/chills, no cp no palpitations, no sob no cough , no nausea/vomiting - Objective MAR Reviewed: Yes Vital Signs & Weight: Vital Signs (12 hours) Temp Pulse Resp BP BP Pulse Ox 05/26/18 03:40 97.7 F 61 16 108/68 94 L 05/25/18 23:40 97.9 F 67 16 99/62 91 L 05/25/18 20:10 97.1 F L 76 20 05/25/18 19:44 97.1 F L 76 20 121/80 95 05/25/18 18:12 97.6 F 74 18 167/82 H 98 Weight Admit Weight 65.913 kg Weight 65.913 kg I&O: 05/24/18 05/25/18 05/26/18 06:59 06:59 06:59 Intake Total 1919 2029 Balance 1919 2029 Result Diagrams: 05/26/18 04:57 05/25/18 03:13 <Manjeet De Filed: 05/26/18 07:46> - Objective Vital Signs & Weight: Vital Signs (12 hours) Temp Pulse Resp BP BP Pulse Ox 05/26/18 07:05 98.2 F 67 20 106/66 93 L 05/26/18 03:40 97.7 F 61 16 108/68 94 L 05/25/18 23:40 97.9 F 67 16 99/62 91 L Weight Admit Weight 65.913 kg Weight 65.913 kg I&O: 05/25/18 05/26/18 05/27/18 06:59 06:59 06:59 Intake Total 2029 Result Diagrams: 05/26/18 04:57 05/25/18 03:13 <Jose D Lester - Last Filed: 05/26/18 10:51> Phys Exam - Physical Examination Constitutional: NAD HEENT: moist MMs, sclera anicteric Respiratory: no wheezing, clear to auscultation bilateral Cardiovascular: RRR, no significant murmur Gastrointestinal: soft, non-tender Psychiatric: normal affect Skin: no rash, normal turgor <Manjeet De Filed: 05/26/18 07:46> Dx/Plan (1) Cellulitis of right lower leg Code(s): L03.115 - CELLULITIS OF RIGHT LOWER LIMB Status: Acute (2) Hypokalemia Code(s): E87.6 - HYPOKALEMIA Status: Acute (3) CHF (congestive heart failure) Code(s): I50.9 - HEART FAILURE, UNSPECIFIED Status: Chronic Qualifiers: Heart failure chronicity: chronic (4) Atrial fibrillation Code(s): I48.91 - UNSPECIFIED ATRIAL FIBRILLATION Status: Acute - Plan Plan: 73F with a PMH of CHF, atrial fibrillation on warfarin, and chronic venous insufficiency who presented to the ED with a chief complaint of a right leg wound that has gotten progressively worse over the last 2 weeks after falling in her home. Continuing tx with IV abx. s/p debridement RLE cellulitis A- Afebrile with NL WBC count. P- continue BS Abx coverage with IV vancomycin, DC zosyn Sensitivities came back sensitive to everything. - trend CBCs & continue to monitor vitals. - General surgery consulted - Ortho recs - Dr. Saul talked with plastic surgery who recommend debridement followed by skin grafting. - Dr. Ring of plastic surgery: plan is to skin graft in 2 weeks. - Wound care consulted - Discussed with family SNF vs home health with wound care/PT options. Will continue to discuss options. CM and Pt consulted. Hypokalemia - K 3.3 - replenish orally today Atrial fibrillation on warfarin - INR yesterday 1.2; aPTT 29.6. - continue to monitor QD INR & PT levels. - On heparin 10,000 BID. Will continue with heparin due to debridement procedure and future skin graft. CHF - Patient not in acute exacerbation. - Will resume home meds. HTN - Will resume home meds. HLD - Will resume home meds. DISPO: likely stay a 1 more day. We will proceed with wound care, gen surg and ortho recs CODE: DNR <Manjeet De - Last Filed: 05/26/18 07:46> Attending Addendum - Attending Addendum Date/Time: 05/26/18 1050 I personally evaluated the patient and discussed the management with Dr. De. I agree with the History, Examination, Assessment and Plan documented above with any addition or exceptions noted below. Patient doing well. Redness continues to recede on abx, anticipate 5 day course IV and then transition to PO abx. Wound care per surgery recs. Will consult therapy services to work with patient. Pain controlled. <Jose D Lester - Last Filed: 05/26/18 10:51>
[2018-05-26 05:43] LABS: #Basophils 0.1 thou/uL (0.0-0.2); #Lymphocytes 0.4 thou/uL (1.20-3.40); #Monocytes 0.3 thou/uL (0.11-0.59); #Neutrophils 5.6 thou/uL (1.40-6.50); %Basophils 1.8 % (0.0-1.0); %Eosinophils 0.2 % (0.0-10.0); %Lymphocytes 6.8 % (21.0-51.0); %Monocytes 4.3 % (0.0-10.0); %Neutrophils 86.9 % (42.0-75.0); Hemoglobin 11.7 g/dL (12.0-16.0); Mean Corpuscular HGB CONC 34.4 g/dL (32.0-36.0); Mean Corpuscular Hemoglobin 32.7 pg (27.0-31.0); Mean Corpuscular Volume 95.1 fL (78.0-98.0); Mean Platelet Volume 7.3 fL (7.4-10.4); Platelet Count 266 thou/uL (130-400); RBC Distribution Width 12.3 % (11.5-14.5); Red Blood Cell (RBC) Count 3.57 mill/uL (4.20-5.40); White Blood Cell (WBC) Count 6.5 thou/uL (4.8-10.8)
[2018-05-26 06:13] LABS: INR-International Normal Ratio 1.2; PTT 28.7 SEC (22.9-36.1); Prothrombin Time 15.5 SEC (12.0-14.7)
[2018-05-26] MEDS: Cholecalciferol (Vitamin D3) 400 UNITS TAB PO SCH (08:21)
[2018-05-26] MEDS: Heparin 10,000 UNITS/1 ML VIAL SC SCH (08:21)
[2018-05-26] MEDS: Vancomycin HCl 1 GM in Premix Bag 1 BAG IVPB SCH ×2 (08:21→22:47)
[2018-05-26] MEDS: Furosemide 20 MG TAB PO SCH (08:21)
[2018-05-26] MEDS: Metoprolol Tartrate 50 MG TAB PO SCH ×2 (08:22→22:45)
[2018-05-26] MEDS: Lisinopril 10 MG TAB PO SCH (08:22)
[2018-05-26] MEDS: Acetaminophen 325 MG TAB PO PRN (10:40)
[2018-05-26] MEDS ORDERED: ISOVUE-370 76%-LOCM 1 ML ONE (13:44)
[2018-05-26] MEDS: Potassium Chloride 20 MEQ TAB PO SCH ×2 (15:12→18:24)
[2018-05-26] MEDS: Heparin 5,000 UNITS/ML VIAL SC SCH (15:12)
[2018-05-26] MEDS ORDERED: Lidocaine 4% Topical Sol 50 ML BOT TOP PRN (15:31)
[2018-05-26 20:56] LABS: #Basophils 0.1 thou/uL (0.0-0.2); #Eosinphils 0.2 thou/uL (0.0-0.7); #Lymphocytes 1.2 thou/uL (1.20-3.40); #Monocytes 0.6 thou/uL (0.11-0.59); #Neutrophils 6.3 thou/uL (1.40-6.50); %Basophils 0.6 % (0.0-1.0); %Eosinophils 2.1 % (0.0-10.0); %Lymphocytes 14.6 % (21.0-51.0); %Monocytes 7.6 % (0.0-10.0); %Neutrophils 75.1 % (42.0-75.0); Hemoglobin 11.9 g/dL (12.0-16.0); Mean Corpuscular HGB CONC 34.1 g/dL (32.0-36.0); Mean Corpuscular Hemoglobin 32.4 pg (27.0-31.0); Mean Corpuscular Volume 95.1 fL (78.0-98.0); Mean Platelet Volume 7.3 fL (7.4-10.4); Platelet Count 270 thou/uL (130-400); RBC Distribution Width 12.5 % (11.5-14.5); Red Blood Cell (RBC) Count 3.67 mill/uL (4.20-5.40); White Blood Cell (WBC) Count 8.4 thou/uL (4.8-10.8)
[2018-05-26 21:02] LABS: INR-International Normal Ratio 1.3; Prothrombin Time 15.8 SEC (12.0-14.7)
[2018-05-26 21:03] LABS: PTT 44.8 SEC (22.9-36.1)
--- NOTE | 2018-05-26 21:04 | PDOC.EVN ---
Event Note - Event Note Event Note: Tyesha keene called at 2030, Dr. Ilia Lazo and myself to bedside 2032. Nurse notes that pt recently returned from bathroom and starting having slurred difficult to understand speech, facial droop, and some upper extremity weakness. Family also notes that as soon as they were called they noticed her speech had changed. Pt has a PMH of afib previously on warfarin and CHF here for a right knee eschar s/p surgical intervention. Pt has been on heparin during hospitalization, recently increased to 10,000u TID. Last dose given at 1500. Lasix 20 mg given PO this AM. Pt seen at bedside in NAD. Daughter in room. BP100/65, HR irregular 86, Resp 16 , pulse ox 95% on RA, temp 98.2. Gen: NAD, pleasant CV: irregularly irregular rhythm Resp: mild bibasilar crackles Neuro: aphasic, left sided facial droop, left sided ext 3/5, right 4/5, no clonus BL lower ext. NIH score 11. Stat labs ordered including CBC, CMP, cardiac enzymes, PT/INR/PTT. Stat imaging including CT head without and CTA head/neck. With pt's history and presentation , ddx includes hemorrhagic vs ischemic CVA. Will also plan to transfer pt to stroke floor for closer monitoring after imaging completed. Will consult neurology at this time. Pending results of imaging, will consider neurosurgery consultation or further work up. <Dale Alejo - Last Filed: 05/26/18 20:50> Attending Addendum - Attending Addendum Date/Time: 05/26/182201 Case discussed multiple times over the phone with Dr. Alejo between 2029 and 2199. Patient with history of Afib on coumadin therapy admitted for cellulitis and eschar development over the R knee. She has been taken off of coumadin due to the need for deep tissue surgery with future plans to complete skin grafting. During this time, she has been on escalating doses of SQ heparin with tracking of aPTT. Tonight, she became aphasic with some focal weakness and tyesha keene was called. Stat labs obtained which showed that her aPTT was in therapeutic range for anticoagulation target (40-70). CT brain obtained which showed no hemorrhagic infarct, and prelim CTA shows no major vessel with blockage. Initial NIH scale was 11 which is now down to 2. We will give her 500ml bolus of fluids, begin ASA therapy, and continue Heparin. Will need to monitor for increased bleeding from her post surgical site, but we are currently in a risk/benefit thompson between the need for anticoagulation and the risk of bleeding. Continue to monitor patient closely and she has been transferred to the Stroke unit. Will plan for MRI tomorrow. Neurology has been consulted and case discussed with them by Drs. Keena Lazo and Melo. <Jose D Lester - Last Filed: 05/26/18 22:13>
--- NOTE | 2018-05-26 21:16 | CT ---
NONCONTRAST CT HEAD: 05/26/18 HISTORY: Altered mental status, slurred speech and left sided facial droop. COMPARISON: None available. FINDINGS: There is no evidence of a hemorrhage, acute infarction, mass effect, or midline shift. Ventricular sy stem is normal in size, shape, and position. The visualized paranasal sinuses and mastoid air cells a re clear. The calvarial structures are intact. There is a prominent osseous density seen at the vertex anteriorly which may be related to either a s mall calcified meningioma measuring 9 mm versus an osseous excrescence and volume averaging with the calvarium. There is certainly no mass effect in this region. IMPRESSION: 1. No acute intracranial abnormalities demonstrated. 2. Above findings discussed with Dr. Alejo on 05/26/18 at 2105 hours. POS: [facility]
[2018-05-26 21:21] LABS: CKMB 1.8 ng/mL (0-6.6); Troponin I Less than 0.010 ng/mL (< 0.028)
[2018-05-26] MEDS ORDERED: Lactated Ringer's 1,000 ML IV SCH (22:00)
--- NOTE | 2018-05-26 22:04 | CT ---
CT ANGIOGRAM HEAD WITH IV CONTRAST AND 3D RECONSTRUCTIONS CT ANGIOGRAM NECK WITH IV CONTRAST AND 3D RECONSTRUCTIONS 05/26/18 HISTORY: Stroke activation. Patient has altered mental status and slurred speech as well as left sided facial droop. CT ANGIOGRAM HEAD: There is diminished attenuation in the region of the insular cortex adjacent to the Sylvian fissure a nd in the right anterior frontal lobe which is asymmetric to the contralateral left side. This was no t appreciated on the noncontrasted CT scan exam. Findings are worrisome for acute infarction in the s ubinsular region and anterior frontal lobe in the distribution of the right middle cerebral artery. N o definite branch occlusion is seen in this region, although more peripheral vessels do appear mildly attenuated compared to the left. The bilateral anterior cerebral and left middle cerebral arteries are patent. The distal vertebral an d basilar arteries are patent. The posterior cerebral arteries are patent bilaterally. There is a fet al type origin of the left posterior cerebral artery which is a normal variant. No focal stenosis or branch occlusion is seen. There is no aneurysm seen within the limitations of th e technique of this exam. IMPRESSION: Findings suggestive of an acute right MCA distribution infarction which was not appreciated on the no ncontrasted CT scan exam. No branch occlusion is seen, although more peripheral vessels do appear mil dly attenuated compared to the left. CT ANGIOGRAM NECK: The aortic arch is normal in caliber with atherosclerotic vascular calcifications involving the aorti c arch as well as the origin of the great vessels. There is a common origin of the innominate artery and left common carotid artery which is patent. there is otherwise normal arrangement of the great ve ssels at the aortic arch. The left subclavian artery as well as limited visualized right subclavian a rtery appear patent. The bilateral common carotid arteries are patent. There is mild atherosclerotic plaque involving the carotid bulbs, but the bilateral internal and external carotid arteries are levin nt. The origin of the left vertebral artery is tortuous, but there is at least mild narrowing at the orig in of the left vertebral artery. The vertebral arteries are otherwise patent and codominant to the sk ull base. The basilar artery is patent. There is a heterogeneous nodule seen within the right lobe of the thyroid gland measuring 1.2 cm. The visualized upper lobes are clear. Mild degenerative changes are seen in the cervical spine. IMPRESSION: 1. Patent bilateral internal carotid arteries. 2. Mild and possibly moderate narrowing at the origin of the left vertebral artery. Vertebral ar teries are otherwise patent. Dr. Alejo was paged on 05/26/18 at 2138 hours. Findings discussed with Dr. Lazo on 05/26/18 at 214 h ours. POS: [facility]
[2018-05-26] MEDS ORDERED: Sodium Chloride 0.9% 500 ML IV SCH (22:15)
[2018-05-26] MEDS: Atorvastatin Calcium 40 MG TAB PO SCH (22:45)
[2018-05-26] MEDS: Simvastatin 20 MG TAB PO SCH (22:48)
[2018-05-26] MEDS ORDERED: Heparin 10,000 UNITS/1 ML VIAL SC SCH (23:00)
[2018-05-27] MEDS: Heparin 5,000 UNITS/ML VIAL SC SCH (00:51)
[2018-05-27] MEDS: Piperacillin/Tazobactam 3.375 GM in Sodium Chloride 0.9% 100 ML IVPB SCH ×4 (00:57→17:24)
[2018-05-27 05:47] LABS: #Basophils 0.1 thou/uL (0.0-0.2); #Eosinphils 0.3 thou/uL (0.0-0.7); #Lymphocytes 1.1 thou/uL (1.20-3.40); #Monocytes 0.5 thou/uL (0.11-0.59); #Neutrophils 5.1 thou/uL (1.40-6.50); %Basophils 0.7 % (0.0-1.0); %Eosinophils 3.6 % (0.0-10.0); %Lymphocytes 15.5 % (21.0-51.0); %Monocytes 7.5 % (0.0-10.0); %Neutrophils 72.6 % (42.0-75.0); Hemoglobin 11.4 g/dL (12.0-16.0); INR-International Normal Ratio 1.3; Mean Corpuscular HGB CONC 33.6 g/dL (32.0-36.0); Mean Corpuscular Hemoglobin 32.3 pg (27.0-31.0); Mean Platelet Volume 7.5 fL (7.4-10.4); Platelet Count 252 thou/uL (130-400); Prothrombin Time 16.4 SEC (12.0-14.7); RBC Distribution Width 12.6 % (11.5-14.5); Red Blood Cell (RBC) Count 3.52 mill/uL (4.20-5.40)
[2018-05-27 05:48] LABS: PTT 71.1 SEC (22.9-36.1)
[2018-05-27 06:06] LABS: Cardiac Risk 3.7 (Less than 4.5)
[2018-05-27] MEDS: Acetaminophen 325 MG TAB PO PRN (06:13)
--- NOTE | 2018-05-27 06:14 | PDOC.FM ---
- Subjective Subjective: Pt reports feeling well this AM. reports that she no longer feels weak on L side and family member reports her speech is back to normal. Pain is well controlled. ROS: no fevers/chills, no cp no palpitations, no sob no cough, no nausea / vomiting - Objective MAR Reviewed: Yes Vital Signs & Weight: Vital Signs (12 hours) Temp Temp Pulse Pulse Resp Resp BP 05/27/18 03:19 97.9 F 62 16 05/27/18 00:00 98.0 F 58 L 16 05/26/18 20:31 98.2 F 84 16 100/65 05/26/18 20:00 98.2 F 84 16 05/26/18 19:35 98.2 F 84 16 BP BP Pulse Ox Pulse Ox 05/27/18 03:19 101/65 95 05/27/18 00:00 106/66 96 05/26/18 20:31 96 05/26/18 20:00 117/74 95 05/26/18 19:35 93 L Weight Admit Weight 65.913 kg Weight 65.913 kg I&O: 05/25/18 05/26/18 05/27/18 06:59 06:59 06:59 Intake Total 2030 900 Balance 2030 900 Result Diagrams: 05/27/18 05:10 05/27/18 05:10 <Manjeet De - Last Filed: 05/27/18 07:36> - Objective Vital Signs & Weight: Vital Signs (12 hours) Temp Pulse Resp BP BP Pulse Ox 05/27/18 09:35 101/74 05/27/18 08:06 98.4 F 71 16 05/27/18 07:40 98.4 F 71 16 107/74 96 05/27/18 03:19 97.9 F 62 16 101/65 95 05/27/18 00:00 98.0 F 58 L 16 106/66 96 Weight Admit Weight 65.913 kg Weight 65.913 kg I&O: 05/26/18 05/27/18 05/28/18 06:59 06:59 06:59 Intake Total 900 Balance 900 Result Diagrams: 05/27/18 05:10 05/27/18 05:10 <Jose D Lester - Last Filed: 05/27/18 10:36> Phys Exam - Physical Examination Constitutional: NAD HEENT: PERRLA, moist MMs Respiratory: no wheezing, clear to auscultation bilateral Cardiovascular: RRR, no significant murmur Gastrointestinal: soft, non-tender Neurological: normal sensation sensation equal bilaterally on face, PERRLA Psychiatric: normal affect Skin: no rash, normal turgor <Manjeet De - Last Filed: 05/27/18 07:36> Dx/Plan (1) Cellulitis of right lower leg Code(s): L03.115 - CELLULITIS OF RIGHT LOWER LIMB Status: Acute (2) Hypokalemia Code(s): E87.6 - HYPOKALEMIA Status: Acute (3) CHF (congestive heart failure) Code(s): I50.9 - HEART FAILURE, UNSPECIFIED Status: Chronic Qualifiers: Heart failure chronicity: chronic (4) Atrial fibrillation Code(s): I48.91 - UNSPECIFIED ATRIAL FIBRILLATION Status: Acute - Plan Plan: 73F with a PMH of CHF, atrial fibrillation on heparin, and chronic venous insufficiency who presented to the ED with a chief complaint of a right leg wound that has gotten progressively worse over the last 2 weeks after falling in her home. Continuing tx with IV abx. s/p debridement RLE cellulitis A- Afebrile with NL WBC count. P- continue BS Abx coverage with IV vancomycin and Zosyn - trend CBCs & continue to monitor vitals. - General surgery consulted - Ortho recs - Dr. Saul talked with plastic surgery who recommend debridement followed by skin grafting. - Dr. Ring of plastic surgery: plan is to skin graft in 2 weeks. - Wound care consulted - Discussed with family SNF vs home health with wound care/PT options. Will continue to discuss options. CM and Pt consulted. - PT/Rehab consulted for placement until the skin graft Stroke A- CT showed R MCA infarct P- aspirin and statin started - neurology consulted -TTE scheduled for today -Brain MRI Hypokalemia - resolved Atrial fibrillation on warfarin - aPTT 71. - TTE today - continue to monitor QD INR & PT levels. - On heparin 10,000 TID. Will continue with heparin due to debridement procedure and future skin graft. CHF - Patient not in acute exacerbation. - home meds. HTN - home meds. HLD - home meds. <Manjeet De - Last Filed: 05/27/18 07:36> Attending Addendum - Attending Addendum Date/Time: 05/27/18 0667 I personally evaluated the patient and discussed the management with Dr. De. I agree with the History, Examination, Assessment and Plan documented above with any addition or exceptions noted below. Patient significantly improved this morning from neurological standpoint. Continue NIH scales and stroke monitoring, await MRI results. Continue ASA and Neurology is on board. Continue to modulate heparin as needed to keep aPTT 40- 70. She continues to do well from infection standpoint and can likely consider transition to oral therapy tomorrow. Continue wound care and therapy services. <Jose D Lester - Last Filed: 05/27/18 10:36>
[2018-05-27 06:59] LABS: ALT (SGPT) 33 U/L (8-55); AST (SGOT) 40 U/L (5-34); Albumin 3.1 g/dL (3.4-4.8); Alkaline Phosphatase 39 U/L (40-150); Anion Gap 10 mmol/L (10-20); BUN (Urea Nitrogen) 16 mg/dL (9.8-20.1); Bilirubin, Total 0.7 mg/dL (0.2-1.2); Calc. Creatinine Clearance 55 mL/min (70-130); Calcium 8.9 mg/dL (7.8-10.44); Carbon Dioxide 27 mmol/L (23-31); Chloride 108 mmol/L (98-107); Estimated GFR-MDRD 59; Globulin 2.8 g/dL (2.4-3.5); Glucose 93 mg/dL (83-110); Potassium 4.3 mmol/L (3.5-5.1); Protein, Total 5.9 g/dL (6.0-8.3); Sodium 141 mmol/L (136-145)
[2018-05-27] MEDS: Vancomycin HCl 1 GM in Premix Bag 1 BAG IVPB SCH ×2 (09:10→21:55)
[2018-05-27] MEDS: Cholecalciferol (Vitamin D3) 400 UNITS TAB PO SCH (09:34)
[2018-05-27] MEDS: Metoprolol Tartrate 50 MG TAB PO SCH ×2 (09:34→22:21)
[2018-05-27] MEDS: Aspirin 81 mg Enteric Coated Tablet PO SCH (09:34)
[2018-05-27] MEDS: Furosemide 20 MG TAB PO SCH (09:34)
[2018-05-27] MEDS: Heparin 10,000 UNITS/1 ML VIAL SC SCH ×3 (09:35→22:21)
[2018-05-27] MEDS: Lisinopril 10 MG TAB PO SCH (09:35)
[2018-05-27 14:38] LABS: INR-International Normal Ratio 1.3; Prothrombin Time 15.9 SEC (12.0-14.7)
[2018-05-27 14:39] LABS: PTT 61.6 SEC (22.9-36.1)
--- NOTE | 2018-05-27 14:46 | MRI ---
MRI BRAIN WITHOUT CONTRAST: Multiplanar, multisequential imaging of the brain obtained. INDICATION: Altered mental status with slurred speech and left-sided facial droop. Assess for CVA. FINDINGS: Exam is degraded due to motion artifact. There is restricted diffusion involving the right frontal lobe cortex consistent with acute/subacute infarct. There is early gliosis seen at this site on FLAIR sequence. No evidence of hemorrhage on g radient echo. The intracranial internal carotid arteries show flow voids. The proximal middle cerebral and anterio r cerebral arteries also demonstrate flow voids. The basilar artery and proximal posterior cerebral arteries show flow voids. Dural venous sinuses are patent. IMPRESSION: There is acute right frontal lobe infarct which involves the right middle frontal gyrus, inferior fro ntal gyrus, portions of the insular cortex, and portions of the frontal operculum. This is in the ri ght middle cerebral artery distribution. POS: [facility]
[2018-05-27] MEDS ORDERED: Warfarin Sodium 2.5 MG TAB PO SCH (17:00)
[2018-05-27] MEDS ORDERED: Sodium Chloride 0.9% 500 ML IVPB SCH (19:45)
[2018-05-27] MEDS ORDERED: Heparin 5,000 UNITS/ML VIAL SC SCH (21:00)
[2018-05-27] MEDS: Atorvastatin Calcium 40 MG TAB PO SCH (21:54)
[2018-05-28] MEDS: Piperacillin/Tazobactam 3.375 GM in Sodium Chloride 0.9% 100 ML IVPB SCH ×3 (00:01→11:55)
--- NOTE | 2018-05-28 05:28 | PDOC.FM ---
- Subjective Subjective: Pt resting this AM comfortably. Reports good pain controll with no complaints. no signs of systemic infection ROS: no fevers/chills, no cp no palpitations, no sob no cough, no nausea no vomiting - Objective MAR Reviewed: Yes Vital Signs & Weight: Vital Signs (12 hours) Temp Pulse Resp BP Pulse Ox 05/28/18 04:00 98.4 F 73 18 109/68 95 05/28/18 00:00 98.3 F 63 18 112/64 96 05/27/18 20:00 98.3 F 63 18 78/55 L 95 Weight Admit Weight 65.913 kg Weight 65.913 kg I&O: 05/26/18 05/27/18 05/28/18 06:59 06:59 06:59 Intake Total 900 300 Balance 900 300 Result Diagrams: 05/28/18 04:48 05/27/18 05:10 Phys Exam - Physical Examination HEENT: moist MMs, sclera anicteric Respiratory: no wheezing, clear to auscultation bilateral Cardiovascular: RRR, no significant murmur Gastrointestinal: soft, non-tender Musculoskeletal: pulses present Psychiatric: normal affect Skin: no rash, normal turgor -: RLE- no erythema Dx/Plan (1) Cellulitis of right lower leg Code(s): L03.115 - CELLULITIS OF RIGHT LOWER LIMB Status: Acute (2) Hypokalemia Code(s): E87.6 - HYPOKALEMIA Status: Acute (3) CHF (congestive heart failure) Code(s): I50.9 - HEART FAILURE, UNSPECIFIED Status: Chronic Qualifiers: Heart failure chronicity: chronic (4) Atrial fibrillation Code(s): I48.91 - UNSPECIFIED ATRIAL FIBRILLATION Status: Acute - Plan Plan: 73F with a PMH of CHF, atrial fibrillation on heparin, and chronic venous insufficiency who presented to the ED with a chief complaint of a right leg wound that has gotten progressively worse over the last 2 weeks after falling in her home. Continuing tx with IV abx. s/p debridement RLE cellulitis A- Afebrile with NL WBC count. IV vancomycin and Zosyn since 05/21, culture grows pseudomonas landa sensitive. P- switch ABX to oral cipro today - trend CBCs & continue to monitor vitals. - Dr. Ring of plastic surgery: plan is to skin graft in 2 weeks. - Wound care consulted - PT/Rehab consulted for placement until the skin graft Stroke 05/27 A- CT and Brain MRI showed R MCA infarct, symptoms have resolved. P- aspirin and statin - neurology consulted -TTE results pending Hypokalemia - resolved Atrial fibrillation - aPTT 61.6 -> 134 this AM, redraw lab and adjust heparin dose accordingly - continue to monitor QD INR & PT levels. - On heparin 10,000 TID. Will continue with heparin due to debridement procedure and future skin graft. CHF - Patient not in acute exacerbation. - home meds. HTN - home meds. HLD - home meds.
[2018-05-28 05:41] LABS: INR-International Normal Ratio 1.3; Prothrombin Time 15.9 SEC (12.0-14.7)
[2018-05-28 05:42] LABS: #Basophils 0.1 thou/uL (0.0-0.2); #Eosinphils 0.2 thou/uL (0.0-0.7); #Lymphocytes 1.2 thou/uL (1.20-3.40); #Monocytes 0.7 thou/uL (0.11-0.59); #Neutrophils 5.4 thou/uL (1.40-6.50); %Basophils 0.7 % (0.0-1.0); %Eosinophils 3.2 % (0.0-10.0); %Lymphocytes 16.4 % (21.0-51.0); %Monocytes 8.6 % (0.0-10.0); %Neutrophils 71.1 % (42.0-75.0); Hemoglobin 11.2 g/dL (12.0-16.0); Mean Corpuscular HGB CONC 33.6 g/dL (32.0-36.0); Mean Corpuscular Hemoglobin 32.1 pg (27.0-31.0); Mean Corpuscular Volume 95.6 fL (78.0-98.0); Mean Platelet Volume 7.8 fL (7.4-10.4); Platelet Count 240 thou/uL (130-400); RBC Distribution Width 12.7 % (11.5-14.5); Red Blood Cell (RBC) Count 3.49 mill/uL (4.20-5.40); White Blood Cell (WBC) Count 7.6 thou/uL (4.8-10.8)
[2018-05-28 05:45] LABS: PTT 134.2 SEC (22.9-36.1)
[2018-05-28 07:30] LABS: INR-International Normal Ratio 1.2; Prothrombin Time 15.7 SEC (12.0-14.7)
[2018-05-28 07:45] LABS: PTT 118.8 SEC (22.9-36.1)
[2018-05-28] MEDS ORDERED: Heparin 5,000 UNITS/ML VIAL SC SCH ×2 (08:28→09:00)
[2018-05-28] MEDS: Cholecalciferol (Vitamin D3) 400 UNITS TAB PO SCH (09:21)
[2018-05-28] MEDS: Furosemide 20 MG TAB PO SCH (09:21)
[2018-05-28] MEDS: Acetaminophen 325 MG TAB PO PRN (09:21)
[2018-05-28] MEDS: Aspirin 81 mg Enteric Coated Tablet PO SCH (09:21)
[2018-05-28] MEDS: Metoprolol Tartrate 25 MG TAB PO SCH ×2 (09:22→11:59)
[2018-05-28] MEDS: Vancomycin HCl 1 GM in Premix Bag 1 BAG IVPB SCH (09:38)
[2018-05-28 11:48] LABS: INR-International Normal Ratio 1.2; Prothrombin Time 15.3 SEC (12.0-14.7)
[2018-05-28 11:49] LABS: PTT 47.1 SEC (22.9-36.1)
[2018-05-28] MEDS: Heparin 10,000 UNITS/1 ML VIAL SC SCH ×3 (11:55→22:04)
[2018-05-28 13:27] LABS: Unfractionated Heparin 0.63 IU/mL
--- NOTE | 2018-05-28 15:48 | ADD-PRG ---
DATE OF SERVICE: 05/28/2018 Mrs. Lemon is a pleasant 73-year-old female who has had a right-sided CVA involving the MCA. She is c urrently on aspirin and a statin as well as care for control of her blood pressure. She is also in a trial fibrillation and we are adjusting her heparin to maintain an anticoagulated state. Her blood p ressure seems to be jumping around quite a bit and I have asked the resident to please check it using Osha's method. I believe the atrial fibrillation may be creating some difficulty in obtaining an a ccurate blood pressure. Her pulse rate is in the 70s and seems to stay there despite her blood press ure being either elevated or low. Her MRI as expected did reveal a MCA infarct. There is an acute i nfarct involving the right frontal lobe and other areas consistent with a right middle cerebral distr ibution. From a neurological standpoint, she is stable and we will continue to work with her heparin and blood pressure.
[2018-05-28] MEDS: Cipro 250 MG TAB PO SCH (21:30)
[2018-05-28] MEDS: Atorvastatin Calcium 40 MG TAB PO SCH (21:30)
[2018-05-29] MEDS: Metoprolol Tartrate 25 MG TAB PO SCH ×3 (00:37→20:13)
[2018-05-29] MEDS: Cipro 250 MG TAB PO SCH ×2 (05:10→20:06)
[2018-05-29 05:25] LABS: #Eosinphils 0.3 thou/uL (0.0-0.7); #Lymphocytes 1.4 thou/uL (1.20-3.40); #Monocytes 0.6 thou/uL (0.11-0.59); #Neutrophils 4.3 thou/uL (1.40-6.50); %Basophils 0.3 % (0.0-1.0); %Eosinophils 4.6 % (0.0-10.0); %Lymphocytes 20.5 % (21.0-51.0); %Monocytes 9.7 % (0.0-10.0); %Neutrophils 64.9 % (42.0-75.0); Hemoglobin 11.6 g/dL (12.0-16.0); Mean Corpuscular HGB CONC 32.4 g/dL (32.0-36.0); Mean Corpuscular Hemoglobin 30.8 pg (27.0-31.0); Mean Corpuscular Volume 95.1 fL (78.0-98.0); Mean Platelet Volume 7.5 fL (7.4-10.4); Platelet Count 244 thou/uL (130-400); RBC Distribution Width 12.6 % (11.5-14.5); Red Blood Cell (RBC) Count 3.76 mill/uL (4.20-5.40); White Blood Cell (WBC) Count 6.7 thou/uL (4.8-10.8)
[2018-05-29 05:27] LABS: INR-International Normal Ratio 1.2; PTT 108.6 SEC (22.9-36.1); Prothrombin Time 15.2 SEC (12.0-14.7)
--- NOTE | 2018-05-29 05:47 | PDOC.FM ---
- Subjective Subjective: Pt feeling well this AM. Reports good pain control. Had 2 episodes of diarrhea last night. Cellulitis is improving on medial leg. No fevers/chills, no cp no palpitations, no sob no cough, no nausea no vomiting - Objective MAR Reviewed: Yes Vital Signs & Weight: Vital Signs (12 hours) Temp Pulse Resp BP Pulse Ox 05/29/18 04:00 98.0 F 72 18 119/77 96 05/29/18 00:00 98.3 F 83 18 108/64 94 L 05/28/18 20:00 98.2 F 117 H 19 112/80 97 Weight Admit Weight 65.913 kg Weight 65.913 kg I&O: 05/27/18 05/28/18 05/29/18 06:59 06:59 06:59 Intake Total 900 790 Balance 900 790 Result Diagrams: 05/29/18 04:25 05/27/18 05:10 Phys Exam - Physical Examination Constitutional: NAD HEENT: moist MMs, sclera anicteric Respiratory: no wheezing, clear to auscultation bilateral Cardiovascular: RRR, no significant murmur Gastrointestinal: soft, non-tender Musculoskeletal: pulses present Psychiatric: normal affect Skin: no rash, normal turgor Dx/Plan (1) Cellulitis of right lower leg Code(s): L03.115 - CELLULITIS OF RIGHT LOWER LIMB Status: Acute (2) Hypokalemia Code(s): E87.6 - HYPOKALEMIA Status: Acute (3) CHF (congestive heart failure) Code(s): I50.9 - HEART FAILURE, UNSPECIFIED Status: Chronic Qualifiers: Heart failure chronicity: chronic (4) Atrial fibrillation Code(s): I48.91 - UNSPECIFIED ATRIAL FIBRILLATION Status: Acute - Plan Plan: 73F with a PMH of CHF, atrial fibrillation on heparin, and chronic venous insufficiency who presented to the ED with a chief complaint of a right leg wound that has gotten progressively worse over the last 2 weeks after falling in her home. Continuing tx with PO abx. s/p debridement RLE cellulitis A- Afebrile. IV vancomycin and Zosyn 05/21-05/28, cipro started 05/29, culture grows pseudomonas landa sensitive. P- continue oral cipro - trend CBCs & continue to monitor vitals. - Dr. Ring of plastic surgery: spoke with him last night and this AM, he plans to talk with anesthesia and get back with us at the end of this week as to when skin graft will be. Reports he is OK with us anticoagulating - Wound care consulted - PT/Rehab unable to make any placement due to pt citizenship status -will consider options of sending home with anticoagulation and wound vac with close outpt f/u Stroke 05/27 A- CT and Brain MRI showed R MCA infarct, symptoms have resolved. P- aspirin and statin - neurology consulted -TTE shows no thrombi but enlarged LA, EF 55-60 Hypokalemia - resolved Atrial fibrillation - Xa 0.63-.73 - continue to monitor QD INR & PT, and Xa antibody levels. - On heparin 7,500 TID. Will continue with heparin due to debridement procedure and future skin graft. Considering switch to anticoagulation CHF - Patient not in acute exacerbation. - home meds. HTN - home meds. HLD - home meds.
[2018-05-29 05:57] LABS: Unfractionated Heparin 0.73 IU/mL
[2018-05-29] MEDS: Cholecalciferol (Vitamin D3) 400 UNITS TAB PO SCH (08:52)
[2018-05-29] MEDS: Heparin 10,000 UNITS/1 ML VIAL SC SCH ×2 (08:53→17:43)
[2018-05-29] MEDS: Aspirin 81 mg Enteric Coated Tablet PO SCH (08:53)
[2018-05-29] MEDS: Furosemide 20 MG TAB PO SCH (08:53)
--- NOTE | 2018-05-29 12:50 | PRG ---
DATE OF SERVICE: 05/29/2018 ADDENDUM SUBJECTIVE: Ms. Lemon is resting comfortably in bed in no distress. We will likely be able to discha rge her later today on Lovenox for her atrial fibrillation. This can be discontinued one day before her skin graft. We will discuss this with the surgeon to coordinate things, but otherwise she is luh dy for discharge.
[2018-05-29] MEDS: Atorvastatin Calcium 40 MG TAB PO SCH (20:06)
[2018-05-29] MEDS ORDERED: Enoxaparin Sodium 80 MG/0.8 ML SYRINGE SC SCH (21:00)
[2018-05-30] MEDS: Cipro 250 MG TAB PO SCH (05:36)
--- NOTE | 2018-05-30 05:50 | PDOC.FM ---
- Subjective Subjective: Pt feels well this AM, reports good pain control still, no fevers chills or symptoms of systemic infection. No complaints at this time. ROS: no fevers/chills, no cp no palpitations, no nausea no vomiting, no sob no cough - Objective MAR Reviewed: Yes Vital Signs & Weight: Vital Signs (12 hours) Temp Pulse Resp BP Pulse Ox 05/30/18 04:00 97.7 F 63 18 111/71 96 05/30/18 00:00 98.1 F 74 18 106/58 L 94 L 05/29/18 20:00 98.1 F 68 18 114/66 98 Weight Admit Weight 65.913 kg Weight 65.913 kg I&O: 05/28/18 05/29/18 05/30/18 06:59 06:59 06:59 Intake Total 790 240 510 Balance 790 240 510 Result Diagrams: 05/30/18 06:37 05/27/18 05:10 Phys Exam - Physical Examination Constitutional: NAD HEENT: moist MMs, sclera anicteric Respiratory: no wheezing, clear to auscultation bilateral Cardiovascular: RRR, no significant murmur Gastrointestinal: soft, non-tender Musculoskeletal: pulses present Neurological: normal sensation, moves all 4 limbs Psychiatric: normal affect Skin: no rash, normal turgor Deviation from normal: erythema near wound vac has reduced to near dissapearance Dx/Plan (1) Cellulitis of right lower leg Code(s): L03.115 - CELLULITIS OF RIGHT LOWER LIMB Status: Acute (2) Hypokalemia Code(s): E87.6 - HYPOKALEMIA Status: Acute (3) CHF (congestive heart failure) Code(s): I50.9 - HEART FAILURE, UNSPECIFIED Status: Chronic Qualifiers: Heart failure chronicity: chronic (4) Atrial fibrillation Code(s): I48.91 - UNSPECIFIED ATRIAL FIBRILLATION Status: Acute - Plan Plan: 73F with a PMH of CHF, atrial fibrillation on heparin, and chronic venous insufficiency who presented to the ED with a chief complaint of a right leg wound that has gotten progressively worse over the last 2 weeks after falling in her home. Continuing tx with PO abx. s/p debridement RLE cellulitis A- Afebrile with low white count. IV vancomycin and Zosyn 05/21-05/28, cipro started 05/28, culture grows pseudomonas landa sensitive. P- continue oral cipro - monitor vitals - Discharge today pending status of outpatient wound care. Plan will be for outpatient wound care and follow up with Dr. Ring outpatient to schedule skin graft. Stroke 05/27 A- CT and Brain MRI showed R MCA infarct, symptoms have resolved. P- aspirin and statin - neurology did not see pt, statin and aspirin were started and symptoms resolved - TTE shows no thrombi but enlarged LA, EF 55-60 Hypokalemia - resolved Atrial fibrillation - Xa 0.63->.73 on 05/29 - Lovenox 65mg BID started 05/29 will continue outpatient until skin graft CHF - Patient not in acute exacerbation. - home meds. HTN - home meds. HLD - home meds.
[2018-05-30 07:07] LABS: INR-International Normal Ratio 1.1; Prothrombin Time 13.8 SEC (12.0-14.7)
[2018-05-30 07:08] LABS: PTT 33.9 SEC (22.9-36.1)
[2018-05-30 07:11] LABS: #Eosinphils 0.3 thou/uL (0.0-0.7); #Lymphocytes 1.4 thou/uL (1.20-3.40); #Monocytes 0.6 thou/uL (0.11-0.59); #Neutrophils 3.9 thou/uL (1.40-6.50); %Basophils 0.5 % (0.0-1.0); %Eosinophils 5.3 % (0.0-10.0); %Lymphocytes 22.3 % (21.0-51.0); %Neutrophils 62.9 % (42.0-75.0); Hemoglobin 12.6 g/dL (12.0-16.0); Mean Corpuscular HGB CONC 32.4 g/dL (32.0-36.0); Mean Corpuscular Hemoglobin 31.1 pg (27.0-31.0); Mean Platelet Volume 7.7 fL (7.4-10.4); Platelet Count 256 thou/uL (130-400); RBC Distribution Width 12.6 % (11.5-14.5); Red Blood Cell (RBC) Count 4.06 mill/uL (4.20-5.40); White Blood Cell (WBC) Count 6.1 thou/uL (4.8-10.8)
[2018-05-30 07:49] VITALS: TEMP 98
[2018-05-30] MEDS: Aspirin 81 mg Enteric Coated Tablet PO SCH (08:29)
[2018-05-30] MEDS: Cholecalciferol (Vitamin D3) 400 UNITS TAB PO SCH (08:29)
[2018-05-30] MEDS: Furosemide 20 MG TAB PO SCH (08:29)
[2018-05-30] MEDS: Metoprolol Tartrate 25 MG TAB PO SCH (08:29)
[2018-05-30] MEDS ORDERED: Enoxaparin Sodium 80 MG/0.8 ML SYRINGE SC SCH (09:00)
[2018-05-30] MEDS: Acetaminophen 325 MG TAB PO PRN (09:13)
[2018-05-30 11:40] VITALS: BP 110/71
--- NOTE | 2018-05-30 14:07 | ADD-PRG ---
DATE OF SERVICE: 05/30/2018 ADDENDUM This is an addendum to the note of Dr. Manjeet De. Ms. Lemon is resting quietly, currently undergoing wound care. Her right knee wound looks clean, dry. She will be discharged later today as arrangements have been made for her to take home Lovenox. philip will visit with the plastic surgeon in a week or so to determine the timing of her graft.
--- NOTE | 2018-05-31 13:05 | DIS-2 ---
DATE OF ADMISSION: 05/21/2018 DATE OF DISCHARGE: 05/30/2018 RESIDENT: Manjeet De MD ADMITTING ATTENDING: Felicitas Brown M.D. DISCHARGE ATTENDING: Ted Ramírez M.D. CONSULTATIONS: Bill Ring M.D., Owen Duran M.D., Dale Alegria M.D. PROCEDURES: On 05/21/2018, a debridement of skin and subcutaneous tissue, right knee and thigh. PREOPERATIVE DIAGNOSES: Skin necrosis, right knee and thigh. Hematoma, right knee and thigh. POSTOPERATIVE DIAGNOSES: Skin necrosis, right knee and thigh. Hematoma, right knee and thigh. IMAGIN. Knee x-ray on 05/21/2018. Impression: Extensive anterior soft tissue swelling may reflect a hem atoma given the history of injury, no displaced fracture is appreciated. Advanced patellofemoral and moderate medial and lateral compartment degenerative changes. 2. Vascular ultrasound. Impression: No DVT. Mild lower extremity edema. 3. Brain CT on 05/26/2018, no acute intracranial abnormalities demonstrated. Above findings discuss ed with Dr. Alejo on 05/26/[address] angiography on 05/26/2018. Impression: Findings suggestive of an acute right MCA distributio n infarction which was not appreciated on the noncontrast CT scan exam. No branch occlusion is seen , although more peripheral vessels do appear mildly attenuated compared to the left, patent bilateral internal carotid arteries, mild, possibly moderate narrowing of the origin of the left vertebral art kati. Vertebral arteries are otherwise patent. 5. CT [place] [facility] angio with contrast. Impression: Findings suggestive of an acute right MCA distribution infarction which was not appreciated on the noncontrasted CT scan exam. No branch occlu marline is seen, although more peripheral vessels do appear mildly attenuated compared to the left . 2. Brain MRI on 05/27/2018. Impression: There is acute right frontal lobe infarct which involves t he right middle frontal gyrus, inferior frontal gyrus, portions of the insular cortex and portions of the frontal operculum. This is in the right middle cerebral artery distribution. PRIMARY DIAGNOSIS: Right lower extremity cellulitis. SECONDARY DIAGNOSES: Hypokalemia, congestive heart failure, atrial fibrillation. DISCHARGE MEDICATIONS: 1. Vitamin D 400 units p.o. daily. 2. Furosemide 20 mg p.o. daily. 3. Simvastatin 10 mg p.o. at bedtime. 4. Acetaminophen 650 mg p.o. q.4 hours p.r.n. 5. Aspirin 81 mg p.o. daily. 6. Atorvastatin calcium 40 mg p.o. at bedtime. 7. Cipro 500 mg p.o. b.i.d. 8. Enoxaparin sodium 60 mg subcutaneous injection q.12 hours. 9. Metoprolol tartrate 12.5 mg p.o. b.i.d. DISCONTINUED MEDICATIONS: 1. Warfarin sodium 5 mg p.o. daily. 2. Metoprolol 50 mg p.o. b.i.d. 3. Lisinopril 10 mg p.o. daily. 4. Warfarin 2.5 mg p.o. daily. HOSPITAL COURSE: This is a 73-year-old female with past medical history of atrial fibrillation, form erly on warfarin, who presented with a 2-week history of right knee pain after falling on it. She wa s then found to have an extensive eschar, which was debrided surgically and managed with wound VAC fo llowing that. Patient was switched to heparin off of warfarin originally for surgical purposes and m anaged on heparin for the majority of her stay, though she was switched to Lovenox 65 mg b.i.d. near the end of her stay. Eventually, per Plastic Surgery recommendations and through case management, reid dietrich was discharged with plans for outpatient management of her wound VAC until proper healing and g ranulation tissue had allowed for skin graft to be managed and performed by Plastic Surgery, Dr. Ring . Her hospital stay was complicated by one episode of stroke in which she started showing stroke sym ptoms, left facial weakness, left upper and lower extremity weakness. Patient was found the CT angio and MRI to have right MCA infarction and was started on statin and aspirin considering she was alrea dy on heparin. Patient's symptoms resolved within 24 hours and she had full return of function and s trength. Hospital course was also complicated by episodes of hypotension. Antihypertensives, lisino pril were stopped and metoprolol was changed from 50 mg p.o. b.i.d. to 12.5 mg b.i.d. Blood pressure s improved and the patient was safe for discharge. DISCHARGE INSTRUCTIONS: 1. Discharged home with plans of outpatient wound management and outpatient visits with Dr. Ring and to arrange for skin graft. 2. Diet: Healthy heart. 3. Activity: As tolerated. 4. Follow up with Dr. Ring in [address] Manjeet De [facility] in 2 weeks.
== END 2018-05-30 15:33 | disposition home or self-care (01) | DRG 570 ==
LOC: ERS 14:28 → SURG A 20:13 → 2SE 05-26 21:30
PROVIDERS: ADMIT Family Medicine; ATTEND Family Medicine
PROC: 0JBN0ZZ Excision of Right Lower Leg Subcutaneous Tissue and Fascia, Open Approach (ICD-10-PCS; principal; 2018-05-21)
DX: L03.115 Cellulitis of right lower limb (principal); I63.511 Cerebral infarction due to unspecified occlusion or stenosis of right middle cerebral artery; G81.94 Hemiplegia, unspecified affecting left nondominant side; S80.01XA Contusion of right knee, initial encounter; I11.0 Hypertensive heart disease with heart failure; I50.9 Heart failure, unspecified; I48.2 Chronic atrial fibrillation; Z79.01 Long term (current) use of anticoagulants; E78.5 Hyperlipidemia, unspecified; W18.30XA Fall on same level, unspecified, initial encounter; Z66 Do not resuscitate; E87.6 Hypokalemia; Z79.82 Long term (current) use of aspirin; B96.5 Pseudomonas (aeruginosa) (mallei) (pseudomallei) as the cause of diseases classified elsewhere; R47.81 Slurred speech; R29.810 Facial weakness; R29.711 NIHSS score 11
CPT/HCPCS: 36415; 36416; 70450; 70496; 70498; 70551; 80048; 80053; 80061; 80202; 82553; 83605; 84484; 85025; 85520; 85610; 85730; 87040; 87070; 87077; 87186; 87205; 93306; 96365; 96367; A4216; G8978-GP-CI; G8979-GP-CI; G8980-GP-CI; G8987-GO-CK; G8988-GO-CI; G8996-GN-CI; G8997-GN-CH; J1100; J1644; J1650; J2001; J2405; J2543; J2704; J3010; J3370; J3430; J7050

== ENCOUNTER 2018-06-05 08:33 | Outpatient (CLI) | payer OTHER, SELFPAY | END 2018-06-05 08:34 | disposition home or self-care (01) | LOC: WCC 08:33 | PROVIDERS: ATTEND Family Medicine | DX: T81.89XD Other complications of procedures, not elsewhere classified, subsequent encounter (principal) ==

== ENCOUNTER 2018-06-07 10:35 | Outpatient (CLI) | payer OTHER, SELFPAY | END 2018-06-07 10:36 | disposition home or self-care (01) | LOC: WCC 10:35 | PROVIDERS: ATTEND Family Medicine | DX: T81.89XD Other complications of procedures, not elsewhere classified, subsequent encounter (principal) | CPT/HCPCS: 97606 ==

== ENCOUNTER 2018-06-11 14:45 | Outpatient (CLI) | payer OTHER, SELFPAY ==
[2018-06-11] MEDS ORDERED: Lidocaine 4% Topical Sol 50 ML BOT ONE (20:58)
[2018-06-11] MEDS ORDERED: Sodium Chloride 0.9% 15 ML NEB ONE (20:58)
== END 2018-06-11 14:46 | disposition home or self-care (01) ==
LOC: WCC 14:45
PROVIDERS: ATTEND Family Medicine
DX: T81.89XD Other complications of procedures, not elsewhere classified, subsequent encounter (principal)
CPT/HCPCS: 97605; A4218; J2001

== ENCOUNTER 2018-06-15 10:09 | Day surgery (SDC) | payer OTHER, SELFPAY ==
[2018-06-14 13:43] VITALS: BMI 28.3
[~2018-06-15 10:09] MED LIST: Dexamethasone 20 MG/5 ML VIAL ONE; Lidocaine 1% PF 5 ML VIAL ONE; Ondansetron HCl/PF 4 MG/2 ML Vial ONE; PHENYLEPHRINE-NS 100 MCG/ML 10 ML SYRINGE ONE; PROPOFOL 200 MG/20 ML VIAL ONE
[2018-06-15] MEDS ORDERED: CEFAZOLIN/Water 2 GM/20 ML SYRINGE ONE (10:54)
[2018-06-15] MEDS ORDERED: Fentanyl 100 MCG/2 ML VIAL ONE (11:52)
[2018-06-15] MEDS ORDERED: Phenylephrine HCL 10 MG/ML VIAL ONE (11:53)
[2018-06-15] MEDS ORDERED: EPINEPHrine 1 MG/ML AMP ONE (11:55)
[2018-06-15] MEDS ORDERED: Bupivacaine/Epinephrine 0.25% 30 ML VIAL ONE (11:55)
[2018-06-15] MEDS ORDERED: PHENYLEPHRINE-NS 100 MCG/ML 10 ML SYRINGE ONE (14:55)
--- NOTE | 2018-06-15 17:24 | OP ---
PREOPERATIVE DIAGNOSIS: Open wound, right knee and thigh. POSTOPERATIVE DIAGNOSIS: Open wound, right knee and thigh. PROCEDURE: 1. Debridement of open wound, in preparation for skin grafting (130 cm2) ([id number], [id number]). 2. Split-thickness skin graft, right knee and thigh (130 cm2) ([id number], [id number]). 2. Application of wound VAC (130 cm2). PROCEDURE: Following induction of adequate anesthesia, the patient was prepped and draped in the usu al sterile fashion in the supine position. Her right knee and thigh wound, which had been progressin g with the wound VAC were sharply debrided back to punctate bleeding. It was then copiously irrigate d. This was done to prepare the wound to receive a skin graft. A split-thickness skin graft was harvested from the ipsilateral thigh and meshed 1-1/2 to 1. The thi ckness of the graft was 12 one thousandths of an inch. This was secured to the wound base with stapl es. A wound VAC was placed to secure the VAC in place as well as enhance survival. The patient was placed in knee immobilizer. The patient tolerated the procedure well.
--- NOTE | 2018-06-18 10:10 | EKG ---
Test Reason : PREOP Blood Pressure : / mmHG Vent. Rate : 064 BPM Atrial Rate : 288 BPM P-R Int : 000 ms QRS Dur : 088 ms QT Int : 426 ms P-R-T Axes : 000 075 -10 degrees QTc Int : 439 ms Atrial fibrillation Nonspecific T wave abnormality , probably digitalis effect Abnormal ECG When compared with ECG of 16-SEP-2014 10:22, Vent. rate has decreased BY 35 BPM QT has shortened Confirmed by DR. Kirill HUBBARD ([id number]) on 06/18/2018 10:09:59 AM Referred By: REED Confirmed By:DR. Kirill HUBBARD
== END 2018-06-15 18:30 | disposition home or self-care (01) ==
LOC: SDC 10:09
PROVIDERS: ATTEND Plastic Surgery
PROC: 0HRKX74 Replacement of Right Lower Leg Skin with Autologous Tissue Substitute, Partial Thickness, External Approach (ICD-10-PCS; principal; 2018-06-15)
DX: S71.101A Unspecified open wound, right thigh, initial encounter (principal); S81.001A Unspecified open wound, right knee, initial encounter
CPT/HCPCS: 93005; 93010; J0171; J1100; J2001; J2370; J2405; J2704; J3010

== ENCOUNTER 2018-06-18 10:32 | Emergency (ER) | payer OTHER, SELFPAY ==
[2018-06-18 11:32] LABS: #Basophils 0.1 thou/uL (0.0-0.2); #Eosinphils 0.3 thou/uL (0.0-0.7); #Lymphocytes 1.3 thou/uL (1.20-3.40); #Monocytes 0.5 thou/uL (0.11-0.59); #Neutrophils 4.5 thou/uL (1.40-6.50); %Basophils 0.9 % (0.0-1.0); %Eosinophils 4.3 % (0.0-10.0); %Lymphocytes 18.9 % (21.0-51.0); %Monocytes 7.8 % (0.0-10.0); Hemoglobin 11.1 g/dL (12.0-16.0); Mean Corpuscular HGB CONC 31.9 g/dL (32.0-36.0); Mean Corpuscular Hemoglobin 30.9 pg (27.0-31.0); Mean Corpuscular Volume 96.6 fL (78.0-98.0); Mean Platelet Volume 8.1 fL (7.4-10.4); Platelet Count 249 thou/uL (130-400); RBC Distribution Width 12.7 % (11.5-14.5); Red Blood Cell (RBC) Count 3.58 mill/uL (4.20-5.40); White Blood Cell (WBC) Count 6.6 thou/uL (4.8-10.8)
[2018-06-18 11:56] LABS: ALT (SGPT) 42 U/L (8-55); AST (SGOT) 21 U/L (5-34); Albumin 3.4 g/dL (3.4-4.8); Alkaline Phosphatase 55 U/L (40-150); Anion Gap 14 mmol/L (10-20); BUN (Urea Nitrogen) 14 mg/dL (9.8-20.1); Bilirubin, Total 0.7 mg/dL (0.2-1.2); Calc. Creatinine Clearance 0 mL/min (70-130); Calcium 8.9 mg/dL (7.8-10.44); Carbon Dioxide 32 mmol/L (23-31); Chloride 100 mmol/L (98-107); Estimated GFR-MDRD 74; Glucose 107 mg/dL (83-110); Potassium 3.2 mmol/L (3.5-5.1); Protein, Total 6.4 g/dL (6.0-8.3); Sodium 143 mmol/L (136-145)
--- NOTE | 2018-06-18 12:00 | RAD ---
PORTABLE CHEST: HISTORY: History of chest pain. FINDINGS: Heart size appears slightly enlarged. There are atherosclerotic changes of the aorta. The lungs are clear of any infiltrates. The bones are demineralized. IMPRESSION: Mild cardiomegaly. Stable exam as compared to an 05/31/13 study. POS: [facility]
[2018-06-18 12:26] LABS: Bilirubin Negative (Negative); Blood, Urine Large (Negative); Clarity CLEAR (Clear); Glucose, Urine (Dipstick) Negative (Negative); Leukocyte Moderate (Negative); Nitrite Negative (Negative); Protein, Urine (Dipstick) Negative (Neg-Trace); Specific Gravity, Urine 1.009 (1.002-1.036)
[2018-06-18 12:28] LABS: Bacteria/HPF None Seen HPF (None Seen); Hyaline Casts/LPF 0-3 HYALINE CAST LPF (0-3 Hyaline); Pathc Cast-AUWi Flag 0.29 (0-2.49); RBC/HPF GREATER THAN 50-TNTC HPF (0-3); Squamous Epithelial 0-3 HPF (0-3)
[2018-06-18 12:39] LABS: INR-International Normal Ratio 1.1; PTT 37.7 SEC (22.9-36.1)
--- NOTE | 2018-06-23 13:21 | EKG ---
Test Reason : Blood Pressure : / mmHG Vent. Rate : 083 BPM Atrial Rate : 054 BPM P-R Int : 000 ms QRS Dur : 074 ms QT Int : 372 ms P-R-T Axes : 000 055 -15 degrees QTc Int : 437 ms Atrial fibrillation Nonspecific T wave abnormality Abnormal ECG Confirmed by BERNA SNEED ([id number]), fan mail editor VAUGHN MARINO ([id number]) on 06/23/2018 1:21:23 PM Referred By: Confirmed By:BERNA SNEED
== END 2018-06-18 13:07 | disposition home or self-care (01) ==
LOC: ERS 10:32
DX: T86.828 Other complications of skin graft (allograft) (autograft) (principal); E78.5 Hyperlipidemia, unspecified; I11.0 Hypertensive heart disease with heart failure; I50.9 Heart failure, unspecified; I48.91 Unspecified atrial fibrillation; Z79.899 Other long term (current) drug therapy; Z79.01 Long term (current) use of anticoagulants; Z79.82 Long term (current) use of aspirin
CPT/HCPCS: 71045; 80053; 81003; 81015; 83605; 85025; 85610; 85730; 87040; 93005

== ENCOUNTER 2019-09-20 23:08 | Emergency (ER) | payer SELFPAY ==
[2019-09-20 23:35] LABS: #Basophils 0.1 thou/uL (0.0-0.2); #Eosinphils 0.2 thou/uL (0.0-0.7); #Lymphocytes 1.5 thou/uL (1.20-3.40); #Monocytes 0.4 thou/uL (0.11-0.59); #Neutrophils 3.3 thou/uL (1.40-6.50); %Basophils 0.9 % (0.0-1.0); %Eosinophils 3.6 % (0.0-10.0); %Lymphocytes 27.6 % (21.0-51.0); %Monocytes 6.6 % (0.0-10.0); %Neutrophils 61.3 % (42.0-75.0); Hemoglobin 14.2 g/dL (12.0-16.0); Mean Corpuscular HGB CONC 34.2 g/dL (32.0-36.0); Mean Corpuscular Volume 93.5 fL (78.0-98.0); Mean Platelet Volume 8.5 fL (7.4-10.4); Platelet Count 150 thou/uL (130-400); RBC Distribution Width 13.3 % (11.5-14.5); Red Blood Cell (RBC) Count 4.44 mill/uL (4.20-5.40); White Blood Cell (WBC) Count 5.3 thou/uL (4.8-10.8)
--- NOTE | 2019-09-20 23:35 | RAD ---
XR Chest 1 View Portable HISTORY: Chest pain and hemoptysis. COMPARISON: 06/18/2018 study. FINDINGS: Heart size is enlarged. There are atherosclerotic changes of the aorta. Chronic lung change s are seen. The bones appear demineralized. IMPRESSION: Cardiomegaly with chronic lung change.
[2019-09-20 23:40] LABS: Prothrombin Time 30.7 SEC (12.0-14.7)
[2019-09-20 23:57] LABS: Albumin 3.9 g/dL (3.4-4.8)
[2019-09-20 23:58] LABS: Chloride 109 mmol/L (98-107); Potassium 3.4 mmol/L (3.5-5.1); Sodium 145 mmol/L (136-145)
[2019-09-20 23:59] LABS: Calcium 8.5 mg/dL (7.8-10.44)
[2019-09-21] LABS: Globulin 2.5 g/dL (2.4-3.5); Glucose 110 mg/dL (83-110); Protein, Total 6.4 g/dL (6.0-8.3)
[2019-09-21 00:01] LABS: Bilirubin, Total 0.8 mg/dL (0.2-1.2); Carbon Dioxide 26 mmol/L (23-31)
[2019-09-21 00:02] LABS: Alkaline Phosphatase 103 U/L (40-110)
[2019-09-21 00:03] LABS: Calc. Creatinine Clearance 0 mL/min (70-130); Estimated GFR-MDRD 75
[2019-09-21 00:04] LABS: BUN (Urea Nitrogen) 13 mg/dL (9.8-20.1)
[2019-09-21 00:05] LABS: AST (SGOT) 22 U/L (5-34)
[2019-09-21 00:06] LABS: ALT (SGPT) 15 U/L (8-55)
[2019-09-21 00:41] LABS: Anion Gap 13 mmol/L (10-20)
[2019-09-21 01:53] LABS: Troponin I Less than 0.010 ng/mL (< 0.028)
--- NOTE | 2019-09-21 07:48 | CT ---
PRELIMINARY REPORT/[facility]/AFTER HOURS PROCEDURE EXAM: CTA CHEST WITH INTRAVENOUS CONTRAST CLINICAL HISTORY: F74 reports to ED for chest pain and coughing up blood. Pt's daughter translated for pt. Daughter rep orted pt has had chest pain on set 5:00 pm. Daughter reports pt started coughing up blood today. Daughter reports pt felt like something was stuck in her chest. Daughter reports pt is currently havi ng a little bit of pain and no SOB. Daughter reports pt is currently on blood thinners for atrial fibrillation. Daughter reports pt has never coughed up blood before. Daughter reports pt does not fee l like she's currently bleeding in her mouth. However, blood is still coming up exam even with no coughing. Daughter reports pt has not had blood in urine or black stool. Daughter reports pt is curre ntly having tightness in chest TECHNIQUE: Axial CTA images of the chest with intravenous contrast. MIP reconstructed images were created and re viewed. CONTRAST: With; ISO 370 100 ml COMPARISON: None provided. FINDINGS: PULMONARY ARTERIES: There is no intraluminal filling defect suspicious for PE. Enlarged right main p ulmonary artery measuring 2.9 cm. AORTA: No thoracic aortic aneurysm or dissection. LUNGS: The lungs are clear. No pulmonary mass. No focal airspace consolidation. PLEURAL SPACES: No pleural effusion. No pneumothorax. HEART AND MEDIASTINUM: Severe left atrial enlargement. Moderate cardiomegaly. Severe coronary arter y calcifications. No significant pericardial effusion. LYMPH NODES: No lymphadenopathy. BONES: No focal osseous abnormality or acute fracture. CHEST WALL AND UPPER ABDOMEN: Images through the upper abdomen are unremarkable. The chest wall is un remarkable. IMPRESSION: 1. No acute pulmonary embolism or focal pulmonary abnormality. 2. Cardiomegaly with severe left atrial enlargement. 3. Coronary artery calcifications. ELECTRONICALLY SIGNED BY: Luiz Arcos DO Sep 21, 2019 1:11:58 AM TILTING SAW OPERATOR This report is intended for review by the ordering physician only, in accordance of law. If you recei ve this report in error, please call [facility] at [phone]. FINAL REPORT CT PULMONARY ANGIOGRAM WITH IV CONTRAST AND 3D RECONSTRUCTIONS: PROVIDED CLINICAL HISTORY: Hemoptysis. COMPARISON: None. FINDINGS/IMPRESSION: Agree with the preliminary interpretation given by Ti. CODE QA Transcribed Date/Time: 09/21/2019 8:09 AM
[2019-09-21] MEDS ORDERED: Iopamidol-370 76% 500 ML 1 ML ONE (11:47)
--- NOTE | 2019-09-24 14:07 | EKG ---
Test Reason : Blood Pressure : / mmHG Vent. Rate : 080 BPM Atrial Rate : 197 BPM P-R Int : 000 ms QRS Dur : 070 ms QT Int : 408 ms P-R-T Axes : 000 069 -10 degrees QTc Int : 470 ms Atrial fibrillation Abnormal QRS-T angle, consider primary T wave abnormality Abnormal ECG Confirmed by ANAID KELLY ([id number]), photographic editor VAUGHN MARINO ([id number]) on 09/24/2019 2:06:58 PM Referred By: Confirmed By:ANAID KELLY
== END 2019-09-21 02:23 | disposition home or self-care (01) ==
LOC: ERS 23:08
DX: J06.9 Acute upper respiratory infection, unspecified (principal); R04.2 Hemoptysis; E78.00 Pure hypercholesterolemia, unspecified; E78.5 Hyperlipidemia, unspecified; I11.0 Hypertensive heart disease with heart failure; I50.9 Heart failure, unspecified; I48.91 Unspecified atrial fibrillation; Z79.82 Long term (current) use of aspirin; Z79.899 Other long term (current) drug therapy; Z79.01 Long term (current) use of anticoagulants
CPT/HCPCS: 36415; 71045; 71275; 80053; 84484; 85025; 85610; 93005; Q9967

== ENCOUNTER 2019-11-15 09:32 | Observation (INO) | payer SELFPAY ==
[2019-11-15 10:01] LABS: #Eosinphils 0.1 thou/uL (0.0-0.7); #Lymphocytes 0.8 thou/uL (1.20-3.40); #Monocytes 0.2 thou/uL (0.11-0.59); %Basophils 0.7 % (0.0-1.0); %Eosinophils 1.5 % (0.0-10.0); %Lymphocytes 14.8 % (21.0-51.0); %Monocytes 3.9 % (0.0-10.0); %Neutrophils 79.1 % (42.0-75.0); Hemoglobin 15.2 g/dL (12.0-16.0); Mean Corpuscular HGB CONC 33.7 g/dL (32.0-36.0); Mean Corpuscular Hemoglobin 32.6 pg (27.0-31.0); Mean Corpuscular Volume 96.8 fL (78.0-98.0); Mean Platelet Volume 8.9 fL (7.4-10.4); Platelet Count 182 thou/uL (130-400); RBC Distribution Width 12.9 % (11.5-14.5); Red Blood Cell (RBC) Count 4.66 mill/uL (4.20-5.40); White Blood Cell (WBC) Count 5.1 thou/uL (4.8-10.8)
--- NOTE | 2019-11-15 10:14 | RAD ---
PA CHEST: History: Dizziness. Chest pain. Comparison: 09-21-19 FINDINGS: Mild cardiomegaly appears stable. Mild vascular engorgement is unchanged. No infiltrate or effusion. No interval change noted. IMPRESSION: Stable chest findings with no acute process. POS: [facility]
[2019-11-15 10:21] LABS: ALT (SGPT) 23 U/L (8-55); AST (SGOT) 24 U/L (5-34); Albumin 4.1 g/dL (3.4-4.8); Alkaline Phosphatase 84 U/L (40-110); Anion Gap 11 mmol/L (10-20); BUN (Urea Nitrogen) 13 mg/dL (9.8-20.1); Bilirubin, Total 1.2 mg/dL (0.2-1.2); CK (CPK) 111 U/L (29-168); Calc. Creatinine Clearance 0 mL/min (70-130); Calcium 8.7 mg/dL (7.8-10.44); Carbon Dioxide 29 mmol/L (23-31); Chloride 107 mmol/L (98-107); Estimated GFR-MDRD 63; Globulin 2.6 g/dL (2.4-3.5); Glucose 164 mg/dL (83-110); Potassium 3.3 mmol/L (3.5-5.1); Protein, Total 6.7 g/dL (6.0-8.3); Sodium 144 mmol/L (136-145)
[2019-11-15] MEDS ORDERED: Aspirin Chewable 81 MG TAB ONE (11:34)
[2019-11-15] MEDS ORDERED: HYDROcodone/Acetaminophen 5/325 mg Tablet ONE (11:34)
--- NOTE | 2019-11-15 12:25 | CT ---
CT Brain WO Con: 11/15/2019 11:56 AM CLINICAL HISTORY: Headache and dizziness. IMAGING TECHNIQUE: Multiple CT images were obtained of the brain without IV contrast. COMPARISON: CT brain dated May 26, 2018 FINDINGS: Brain: There is encephalomalacia from a prior ischemic insult involving the lateral right frontal lo be. No acute infarct, hemorrhage or hydrocephalus is present. No midline shift is present. Ventricles: Normal. No hydrocephalus. Skull: Intact. Visualized Paranasal sinuses: Clear. Mastoid air cells:Clear. Extracranial soft tissues:Normal. IMPRESSION: 1. No acute intracranial abnormality. 2. 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
--- NOTE | 2019-11-15 12:34 | PDOC.FPRHP ---
- History of Present Illness Chief Complaint: Chest Pressure, Neck Tightness, Dizziness History of Present Illness: Pt is a 74 yo female with PMH significant for A-Fib rate controlled, HTN, HLD, tremor, CHF, CVA w/o deficits in 2019 who presents with a 2 day history of chest pressure, neck tightness, and dizziness. The chest pressure is mid-sternal , at rest, no associated N/V, diaphoresis. She does not have a previous myocardial infarction but does have a-fib seen by Dr. Morrissey. She has had a stress test but believes it was > 3 years ago. Her dizziness started 2 days ago as well, worse with positional changes. Neck tightness is worse with movement, aggravated with touch. In the emergency department she given ASA 325 mg, [place] 5/325. After the [place] was given her chest pain was alleviated. She also had a CT revealing chronic changes due to complaints of TARIQ, dizziness. - Allergies/Adverse Reactions Allergies Allergy/AdvReac Type Severity Reaction Status Date / Time No Known Allergies Allergy Verified 11/15/19 14:26 - Home Medications Medication Instructions Recorded Confirmed Type Cholecalciferol (Vitamin D3) 400 unit PO DAILY 09/16/14 11/15/19 History [Vitamin D3] Furosemide 20 mg PO DAILY 09/16/14 11/15/19 History Aspirin [Ecotrin Low Strength] 81 mg PO DAILY #30 tab 05/30/18 11/15/19 Rx Atorvastatin Calcium [Lipitor] 40 mg PO HS #30 tab 05/30/18 11/15/19 Rx Metoprolol Tartrate [Lopressor] 12.5 mg PO BID #60 tab 05/30/18 11/15/19 Rx Benzonatate 100 mg PO TID PRN 11/15/19 11/15/19 History Ubidecarenone [Co Q-10] 100 mg PO DAILY 11/15/19 11/15/19 History Warfarin Sodium [Coumadin] 2.5 mg PO ASDIR 11/15/19 11/15/19 History Warfarin Sodium [Jantoven] 5 mg PO ASDIR 11/15/19 11/15/19 History - History PMHx: CVA w/o deficits in 2019, CHF, A-Fib, HLD, HTN, Tremor PSHx: Cholecystectomy, Skin graft on RLE s/p wound debridement, x 1 FHx: Mother - Colon Cancer Social: Denies alcohol, drugs, tobacco; lives with her daughter - Review of Systems General: denies: fever/chills, weight/appetite/sleep changes ENT: denies: nasal congestion, rhinorrhea Respiratory: denies: cough, congestion Cardiovascular: reports: chest pain. denies: palpitation, edema Gastrointestinal: denies: nausea, vomiting, diarrhea, constipation, abdominal pain Genitourinary: denies: dysuria, polyuria Skin: denies: rashes, lesions Musculoskeletal: denies: pain, tenderness Neurological: denies: numbness, seizure Psychological: denies: anxiety, depression - Vital signs BP: 128/84 HR: 71 RR: 18 Tmax: 97.7 Pox: 89% on RA Wt: 71 kg - Physical Exam Constitutional: NAD, awake, alert and oriented HEENT: PERRLA, EOMI Neck: FROM, no JVD Chest: no-tender to palpation, no lesions Heart: RRR, pulses present Lungs: CTAB, good air movement Abdomen: soft, non-tender Musculoskeletal: normal structure, normal tone Neurological: no focal deficit, CN II-XII intact -Neurological: Positive [place]-Hallpike, Negative HINTS exam Heme/Lymphatic: no purpura, no petechia Psychiatric: good judgment and insight, intact recent and remote memory FMR H&P: Results - Labs Result Diagrams: 11/15/19 09:45 11/15/19 09:45 Lab results: WBC 5.1 thou/uL (4.8-10.8) 11/15/19 09:45 Hgb 15.2 g/dL (12.0-16.0) 11/15/19 09:45 Hct 45.1 % (36.0-47.0) 11/15/19 09:45 MCV 96.8 fL (78.0-98.0) 11/15/19 09:45 Plt Count 182 thou/uL (130-400) 11/15/19 09:45 Neutrophils % 79.1 % (42.0-75.0) H 11/15/19 09:45 Sodium 144 mmol/L (136-145) 11/15/19 09:45 Potassium 3.3 mmol/L (3.5-5.1) L 11/15/19 09:45 Chloride 107 mmol/L (98-107) 11/15/19 09:45 Carbon Dioxide 29 mmol/L (23-31) 11/15/19 09:45 BUN 13 mg/dL (9.8-20.1) 11/15/19 09:45 Creatinine 0.88 mg/dL (0.6-1.1) 11/15/19 09:45 Glucose 164 mg/dL (83-110) H 11/15/19 09:45 Calcium 8.7 mg/dL (7.8-10.44) 11/15/19 09:45 Total Bilirubin 1.2 mg/dL (0.2-1.2) 11/15/19 09:45 AST 24 U/L (5-34) 11/15/19 09:45 ALT 23 U/L (8-55) 11/15/19 09:45 Alkaline Phosphatase 84 U/L (40-110) 11/15/19 09:45 Creatine Kinase 111 U/L (29-168) 11/15/19 09:45 Serum Total Protein 6.7 g/dL (6.0-8.3) 11/15/19 09:45 Albumin 4.1 g/dL (3.4-4.8) 11/15/19 09:45 - EKG Interpretation EKG: A-fib rate controlled, no ST changes - Radiology Interpretation Chest x-ray Status: image reviewed by me (No acute process, mild cardiomegaly), report reviewed by me CT scan - head Status: image reviewed by me Additional comment: Chronic changes, no acute abnormalities FMR H&P: A/P - Problem List (1) Atypical chest pain Current Visit: Yes Status: Acute Code(s): R07.89 - OTHER CHEST PAIN (2) Benign paroxysmal positional vertigo Current Visit: Yes Status: Acute Code(s): H81.10 - BENIGN PAROXYSMAL VERTIGO , UNSPECIFIED EAR (3) Muscle tightness Current Visit: Yes Status: Acute Code(s): M62.89 - OTHER SPECIFIED DISORDERS OF MUSCLE (4) Atrial fibrillation Current Visit: No Status: Acute Code(s): I48.91 - UNSPECIFIED ATRIAL FIBRILLATION (5) Hypokalemia Current Visit: No Status: Acute Code(s): E87.6 - HYPOKALEMIA (6) CHF (congestive heart failure) Current Visit: No Status: Chronic Code(s): I50.9 - HEART FAILURE, UNSPECIFIED Qualifiers: Heart failure chronicity: chronic (7) Hyperlipidemia Current Visit: No Status: Chronic Code(s): E78.5 - HYPERLIPIDEMIA, UNSPECIFIED (8) Hypertension Current Visit: No Status: Chronic Code(s): I10 - ESSENTIAL (PRIMARY) HYPERTENSION - Plan Pt is a 74 yo female her for: # Atypical Chest Pain - trend trops - TSH pending - Stress am, NPO midnight - ASA daily - EKG a-fib w/o st changes - daily weights, I&O's # Neck Tightness, MSK Dysfunction - flexeril - monitor # BPPV positive Bre Hallpike - due to pt's MSK restrictions will not perform britany's maneuver - meclizine prn # A-Fib - continue home meds - pending PT/INR # HTN - continue home meds # HLD - continue home meds # CHF # LE Edema ECHO 2018 EF 55-60%, LA severely dilated - continue home meds # Vit D Deficiency - continue home meds # Hx of CVA - stable, negative HINTS # Hypokalemia - replete as needed Diet: HH, NPO Midnight Fluids: SL VTE: therapeutic warfarin Code: full Dispo: < 48 hr FMR H&P: Upper Level - Pertinent history 74 y/o F PMHx a-fib, prior CVA, CHF, HTN, HLD presents for a 2 day history of neck pain and dizziness. The patient reports neck pain on the back left of her neck that started two days ago and has improved after getting norco. She also reports dizziness that is worse when she stands up or moves her head. She reports chills the past two days and a light chest pressure in the center of her chest. Denies SOB, diaphoresis, N/V. - Pertinent findings BP 128/84, HR 71, RR 20, Temp 97.7, O2 sat 98% on RA PE: Gen - alert, oriented, sitting in wheelchair in NAD HEENT - MMM Neck - L trapezius mm tenderness and spasm CV - Irregularly irregular Resp - CTAB, no wheezes Labs: K 3.3, Cr 0.88, Trop 0.02 - Plan Date/Time: 11/15/19 1234 I, Carolyn Fried MD, PGY-3, have evaluated this patient and agree with findings/ plan as outlined by paralegal internship resident. Pertinent changes/additions are listed here. 1. Atypical Chest Pain Initial trop negative. EKG showed no ST/T wave changes, but was in a-fib with controlled ventricular rate. Heart score: 4. -Will obs on tele -Trend trops -NPO after midnight -Stress in AM -Aspirin -Check FLP 2. Neck Muscle Spasm -Will do trial of muscle relaxer 3. Dizziness Pt with 2 days of dizziness, worse with movement of head and standing up. DDx: orthostatic hypotension vs BPPV vs cerebellar infarct. CT head negative. -Give meclizine -Will consider CTA head and MRI pending HINTS exam and improvement with meclizine. 4. Hypokalemia K 3.3 -Will replete and monitor 5. CHF -Daily weights -Strict I/Os -Continue home meds 6. A-fib on chronic anticoagulation Currently rate controlled -Check INR -Continue BB 7. HTN -Continue home meds Dispo: Obs on tele LOS: Likely < 48 hours Addendum - Attending - Attending Attestation Date/Time: 11/15/19 2191 I personally evaluated the patient and discussed the management with Dr. Abbott /Corky I agree with the History, Examination, Assessment and Plan documented above with any addition or exceptions noted below. See my event note for details.
[2019-11-15] MEDS ORDERED: Potassium Chloride 20 MEQ TAB PO SCH (14:00)
--- NOTE | 2019-11-15 14:17 | PDOC.EVN ---
Addendum - Attending - Attending Attestation Date/Time: 11/15/19 3773 I personally evaluated the patient and discussed the management with Dr. Abbott /Corky I agree with the History, Examination, Assessment and Plan documented above with any addition or exceptions noted below. 74 yo HF PMH HTN, HLD, HFpEF, and prior CVA. presents with 2 day hx of epigastric pain, dizziness, and neck tightness. Exam remarkable for positive Bre Halpike test to the left, negative HiNTS exam. CV and pulm exam negative. Labs unremarkable. EKG shows rate controlled A-fib, normal intervals, no ST changes. CXR negative. Observation for Atypical CP. Stress tomorrow. Dizziness 2 /2 BPPV. LOS < 2 midnights.
[2019-11-15] MEDS ORDERED: Acetaminophen 325 MG TAB PO PRN (14:20)
[2019-11-15] MEDS ORDERED: Cyclobenzaprine 10 MG TAB PO PRN (14:20)
[2019-11-15] MEDS ORDERED: Ondansetron PF 4 MG/2 ML Vial IVP PRN (14:20)
[2019-11-15] MEDS ORDERED: Cyclobenzaprine 10 MG TAB PO SCH (14:20)
[2019-11-15] MEDS ORDERED: Meclizine HCl 12.5 MG TAB PO SCH (14:20)
[2019-11-15] MEDS ORDERED: Ondansetron ODT 4 MG TAB SL PRN (14:20)
[2019-11-15 14:23] VITALS: BMI 31.8
[2019-11-15] MEDS ORDERED: Meclizine HCl 12.5 MG TAB PO PRN (14:34)
[2019-11-15] MEDS ORDERED: Benzonatate 100 MG CAP PO PRN (15:21)
[2019-11-15 16:06] LABS: INR-International Normal Ratio 2.9; Prothrombin Time 30.4 SEC (12.0-14.7)
[2019-11-15 16:23] LABS: Troponin I 0.012 ng/mL (< 0.028)
[2019-11-15] MEDS ORDERED: Warfarin Sodium 5 MG TAB PO SCH ×2 (17:00)
[2019-11-15] MEDS ORDERED: Metoprolol Tartrate 25 MG TAB PO SCH (21:00)
[2019-11-15] MEDS ORDERED: Atorvastatin Calcium 40 MG TAB PO SCH (21:00)
[2019-11-16 04:42] LABS: #Eosinphils 0.2 thou/uL (0.0-0.7); #Lymphocytes 1.4 thou/uL (1.20-3.40); #Monocytes 0.4 thou/uL (0.11-0.59); %Basophils 0.8 % (0.0-1.0); %Eosinophils 3.6 % (0.0-10.0); %Lymphocytes 27.7 % (21.0-51.0); %Monocytes 7.4 % (0.0-10.0); %Neutrophils 60.6 % (42.0-75.0); Hemoglobin 14.1 g/dL (12.0-16.0); Mean Corpuscular HGB CONC 34.3 g/dL (32.0-36.0); Mean Corpuscular Hemoglobin 32.9 pg (27.0-31.0); Mean Platelet Volume 8.7 fL (7.4-10.4); Platelet Count 159 thou/uL (130-400); RBC Distribution Width 12.8 % (11.5-14.5); Red Blood Cell (RBC) Count 4.27 mill/uL (4.20-5.40)
[2019-11-16 04:48] LABS: INR-International Normal Ratio 3.1; Prothrombin Time 31.3 SEC (12.0-14.7)
[2019-11-16 05:10] LABS: Anion Gap 10 mmol/L (10-20); BUN (Urea Nitrogen) 14 mg/dL (9.8-20.1); Calc. Creatinine Clearance 74 mL/min (70-130); Calcium 8.6 mg/dL (7.8-10.44); Carbon Dioxide 30 mmol/L (23-31); Cardiac Risk 2.5 (Less than 4.5); Chloride 108 mmol/L (98-107); Cholesterol 105 mg/dl (< 200 Desired); Estimated GFR-MDRD 78; Glucose 89 mg/dL (83-110); HDL Cholesterol 42 mg/dL (>60 Neg Risk); LDL Cholesterol, Calculated 56 mg/dL; Potassium 3.7 mmol/L (3.5-5.1); Sodium 144 mmol/L (136-145); Triglycerides 37 mg/dL (Less than 150)
--- NOTE | 2019-11-16 05:21 | PDOC.FM ---
- Subjective Subjective: She has a little chest tightness this morning. She says she is not SOB and only feels the tightness substernally. - Objective MAR Reviewed: Yes Vital Signs & Weight: Vital Signs (12 hours) Temp Pulse Resp BP BP Pulse Ox 11/16/19 04:27 97.8 F 54 L 16 118/56 L 96 11/15/19 23:27 97.9 F 53 L 18 107/58 L 94 L 11/15/19 18:53 98.3 F 69 16 126/85 98 Weight Weight 70.579 kg I&O: 11/14/19 11/15/19 11/16/19 06:59 06:59 06:59 Intake Total 720 Balance 720 Result Diagrams: 11/16/19 04:20 11/16/19 04:20 EKG Reviewed by me: Yes (bradycardic afib overnight 40-50s down to 30s between 2 -3 am) Phys Exam - Physical Examination Constitutional: NAD HEENT: moist MMs, oral pharynx no lesions Neck: no nodes, supple Respiratory: no wheezing, no rales, no rhonchi, clear to auscultation bilateral Irregular rhythm with bradycardia Gastrointestinal: soft, non-tender, positive bowel sounds Musculoskeletal: no edema, pulses present Neurological: normal sensation, moves all 4 limbs Lymphatic: no nodes Skin: no rash, normal turgor Dx/Plan (1) History of CVA (cerebrovascular accident) Code(s): Z86.73 - PRSNL HX OF TIA (TIA), AND CEREB INFRC W/O RESID DEFICITS Status: Acute (2) Atypical chest pain Code(s): R07.89 - OTHER CHEST PAIN Status: Acute (3) Benign paroxysmal positional vertigo Code(s): H81.10 - BENIGN PAROXYSMAL VERTIGO, UNSPECIFIED EAR Status: Acute (4) Muscle tightness Code(s): M62.89 - OTHER SPECIFIED DISORDERS OF MUSCLE Status: Acute (5) Atrial fibrillation Code(s): I48.91 - UNSPECIFIED ATRIAL FIBRILLATION Status: Acute (6) CHF (congestive heart failure) Code(s): I50.9 - HEART FAILURE, UNSPECIFIED Status: Chronic Qualifiers: Heart failure chronicity: chronic (7) Hyperlipidemia Code(s): E78.5 - HYPERLIPIDEMIA, UNSPECIFIED Status: Chronic (8) Hypertension Code(s): I10 - ESSENTIAL (PRIMARY) HYPERTENSION Status: Chronic - Plan Plan: 1. Atypical Chest Pain EKG showed no ST/T wave changes, but was in a-fib with controlled ventricular rate. * Heart score: 4 * Trops: 0.02 > 0.012 * NPO after midnight * Stress today * Aspirin * ASCVD unable to calculate due to low LDL * Holding Metoprolol this morning 2. Neck Muscle Spasm * Flexeril * Will monitor 3. Dizziness due to BPPV Pt with 2 days of dizziness, worse with movement of head and standing up. * CT head negative. * + [place]-Hallpike, - Hence * Meclizine Ordered 5. A-fib on chronic anticoagulation Currently rate controlled * INR: 2.9 > 3.1 * Metoprolol held, will see how she does * Consider switching from metoprolol to carvediolol 6. HTN * Continue home meds 7. HLD * Continue home med: Atorvastatin 8. CHF with LE Edema ECHO 2018 EF 55-60%, LA severely dilated * Continue home med: Lasix * Daily weights * Strict I/Os 9. Vit D Deficiency * Continue home med 10. Hx of CVA * stable, negative HINTS 11. Hypokalemia- Resolved * K: 3.3 > 3.7 * Will monitor Code Status: Full Diet: HH, NPO Midnight Fluids: SL VTE: therapeutic warfarin PCP: MAR Lester Dispo: Obs on tele, Likely < 48 hours. Will get results of stress and see how she does without the metoprolol.
[2019-11-16] MEDS ORDERED: Ubidecarenone 50 MG CAP PO SCH (09:00)
[2019-11-16] MEDS ORDERED: Aspirin 325 mg Enteric Coated Tablet PO SCH (09:00)
[2019-11-16] MEDS ORDERED: Cholecalciferol (Vitamin D3) 400 UNITS TAB PO SCH (09:00)
[2019-11-16] MEDS ORDERED: Furosemide 20 MG TAB PO SCH (09:00)
[2019-11-16] MEDS ORDERED: Regadenoson 0.4 MG/5 ML SYRINGE ONE (12:16)
--- NOTE | 2019-11-16 13:35 | NM ---
EXAM: Nuclear medicine cardiac perfusion examination with ejection fraction HISTORY: Chest pain TECHNIQUE: Rest images: 9.6 mCi technetium 99m sestamibi Stress images: 30.5 mCi of technetium 9M sestamibi; Lexiscan COMPARISON: 05/31/2013 FINDINGS: Tomographic images: No fixed or reversible perfusion defects. Gated images: Normal wall motion and ejection fraction of greater than 70%. EDV: 44 mL LHR: 0.3 TID: 1.2 IMPRESSION: No evidence of ischemia
[2019-11-16 16:02] VITALS: BP 96/51; TEMP 98.5
--- NOTE | 2019-11-16 16:59 | PRG ---
DATE OF SERVICE: 11/16/2019 Please see note from Dr. Billy Solitario, for which I agree. The patient was seen, evaluated, discussed, and examined with residents by bedside. She came in here for chest pain evaluation and known atherosclerotic disease and heart failure. She is currently getting a stress test this morning and is on home medicines including warfarin, lipid medications, beta-blockers, etc., and we will what Cardiology says based on symptoms are improved. Job ID: [id number]
[2019-11-17] MEDS ORDERED: Warfarin Sodium 2.5 MG TAB PO SCH (17:00)
--- NOTE | 2019-11-18 12:08 | DIS ---
DATE OF ADMISSION: 11/15/2019 DATE OF DISCHARGE: 11/16/2019 RESIDENT: Billy Solitario MD ADMITTING ATTENDING: Ronal Rodriguez MD DISCHARGE ATTENDING: Haja Ambrocio MD CONSULTS: None. PROCEDURES: * Chest x-ray on 11/15 shows stable chest findings with no acute process. * Brain CT on 11/15 shows no acute intracranial abnormality. Chronic cortical- subcortical infarct involving the right frontal lobe. * Stress test on 11/16 shows no evidence of ischemia. EF greater than 70%. PRIMARY DIAGNOSES: 1. Atypical chest pain. 2. Neck muscle spasm. 3. Dizziness due to benign paroxysmal positional vertigo. SECONDARY DIAGNOSES: 1. Atrial fibrillation, on chronic anticoagulation. 2. Hypertension. 3. Hyperlipidemia. 4. Congestive heart failure with lower extremity edema. 5. Vitamin D deficient. 6. History of cerebrovascular accident. 7. Hypokalemia. DISCHARGE MEDICATIONS: 1. Carvedilol 3.125 p.o. b.i.d. 2. Meclizine 12.5 mg p.o. b.i.d. p.r.n. for dizziness. Continue home medications. DISCONTINUED MEDICATIONS: 1. [place] 5/325. 2. Metoprolol 12.5 mg p.o. b.i.d. HISTORY OF PRESENT ILLNESS: The patient is a 74-year-old female with past medical history significant for atrial fibrillation, rate controlled hypertension, hyperlipidemia, tremor, CHF, CVA without deficits in 2018, who presents with a 2 -day history of chest pressure, neck tightness, and dizziness. The chest pressure is midsternal at rest. No associated nausea, vomiting, or diaphoresis. She does not have a previous myocardial infarction, but does have atrial fibrillation, seen by Dr. Morrissey. She has had a stress test, but believes it was greater than 3 years ago. Her dizziness started 2 days ago as well, worse with positional changes. Neck tightness is worse with movement, aggravated with touch. In the emergency department, she was given aspirin 325, [place] 5/325. After the [place] was given, her chest pain alleviated. She also had a CT revealing chronic changes due to complaints of headache and dizziness. 1. Atypical chest pain. * EKG showed no ST-T wave changes, but was in atrial fibrillation with controlled ventricular rate. * Heart score 4. * Troponin 0.02 down to 0.012. * Stress test that was negative. * ASCVD unable to calculate due to elevated LDL. * Currently on aspirin, held the metoprolol for the stress test and changed to carvedilol. 2. Neck muscle spasms. * Flexeril. 3. Dizziness due to BPPV. The patient with 2 days of dizziness, worse with movement of head on standing up. * CT head negative. * [place]-Hallpike positive, Hence negative. * Meclizine ordered. 4. Atrial fibrillation, on chronic anticoagulation. Currently, rate controlled. * INR 2.9 to 3.1. * Switched metoprolol to carvedilol. 5. Hypertension. * Continue home medications, except for metoprolol which was changed to carvedilol. 6. Hyperlipidemia. * Continue home medication atorvastatin. 7. CHF with lower extremity edema. * Echo in 2019 showed an EF of 55% to 60%. * Left atrium was severely dilated. * Continue home med of Lasix. * She was found to be euvolemic before discharge. 8. Vitamin D deficiency. * Continue home medication. 9. History of CVA, stable. * Negative Hence. 10. Hypokalemia, resolved. * Potassium 3.3 to 3.7. DISPOSITION: Stable. DISCHARGE INSTRUCTIONS: 1. Location: Home. 2. Diet: Heart healthy, low-sodium. 3. Activity: As tolerated. 4. Followup: Dr. Morrissey in [address] Lester in 7 days. Job ID: [id number] MTDD
--- NOTE | 2019-11-21 16:48 | EKG ---
Test Reason : Blood Pressure : / mmHG Vent. Rate : 087 BPM Atrial Rate : 094 BPM P-R Int : 000 ms QRS Dur : 074 ms QT Int : 274 ms P-R-T Axes : 000 049 -63 degrees QTc Int : 329 ms Atrial fibrillation Low voltage QRS Nonspecific T wave abnormality Abnormal ECG Confirmed by CHITRA LOPEZ DO ([id number]), assistant film editor VAUGHN MARINO ([id number]) on 11/21/2019 4:47:20 PM Referred By: Confirmed By:CHITRA LOPEZ DO
== END 2019-11-16 16:52 | disposition home or self-care (01) ==
LOC: ERS 09:32 → 2SW 13:56
PROVIDERS: ADMIT Family Medicine; ATTEND Family Medicine
DX: R07.89 Other chest pain (principal); M62.838 Other muscle spasm; H81.10 Benign paroxysmal vertigo, unspecified ear; I48.91 Unspecified atrial fibrillation; I11.0 Hypertensive heart disease with heart failure; I50.30 Unspecified diastolic (congestive) heart failure; E78.5 Hyperlipidemia, unspecified; E55.9 Vitamin D deficiency, unspecified; E87.6 Hypokalemia; R25.1 Tremor, unspecified; I70.90 Unspecified atherosclerosis; Z86.73 Personal history of transient ischemic attack (TIA), and cerebral infarction without residual deficits; Z79.01 Long term (current) use of anticoagulants; Z79.899 Other long term (current) drug therapy
CPT/HCPCS: 36415; 70450; 71045; 78452; 80048; 80053; 80061; 82550; 84443; 84484; 85025; 85610; 87804; 93005; 93017; 94760; A9500; G0378; J2785; J8597

== ENCOUNTER 2020-05-31 16:02 | Observation (INO) | payer MEDICAID, OTHER ==
--- NOTE | 2020-05-31 16:40 | RAD ---
Exam: Chest one view HISTORY:Chest pain Comparison: 05/07/2020, 11/15/2019 FINDINGS: Cardiac silhouette:Cardiomegaly. Aorta: Atherosclerosis and elongation of the aorta Pulmonary vessels: Normal Costophrenic angles: Clear LUNGS: Mild hyperinflation. Chronic lung parenchymal changes. Pneumothorax: None Osseous abnormalities: None IMPRESSION: 1. Atherosclerosis 2. Cardiomegaly, without evidence of congestive heart failure.
[2020-05-31 16:54] LABS: #Basophils 0.1 thou/uL (0.0-0.2); #Eosinphils 0.4 thou/uL (0.0-0.7); #Lymphocytes 1.4 thou/uL (1.20-3.40); #Monocytes 0.9 thou/uL (0.11-0.59); #Neutrophils 6.4 thou/uL (1.40-6.50); %Basophils 0.8 % (0.0-1.0); %Eosinophils 4.6 % (0.0-10.0); %Lymphocytes 14.9 % (21.0-51.0); %Monocytes 9.7 % (0.0-10.0); Hemoglobin 13.8 g/dL (12.0-16.0); Mean Corpuscular HGB CONC 31.9 g/dL (32.0-36.0); Mean Corpuscular Hemoglobin 31.4 pg (27.0-31.0); Mean Corpuscular Volume 98.4 fL (78.0-98.0); Mean Platelet Volume 8.1 fL (7.4-10.4); Platelet Count 229 thou/uL (130-400); RBC Distribution Width 13.3 % (11.5-14.5); White Blood Cell (WBC) Count 9.2 thou/uL (4.8-10.8)
[2020-05-31 17:00] LABS: INR-International Normal Ratio 1.4; PTT 25.6 sec (22.9-36.1); Prothrombin Time 16.8 sec (12.0-14.7)
[2020-05-31] MEDS ORDERED: Nitroglycerin 0.4 MG TAB 1 EACH ONE (17:07)
[2020-05-31] MEDS ORDERED: Mag-Al 1200 mg/1200 mg/30 ML UDCUP ONE (17:07)
[2020-05-31] MEDS ORDERED: Lidocaine Viscous Sol 2% 15 ml UD Cup ONE (17:07)
[2020-05-31 17:17] LABS: ALT (SGPT) 76 U/L (8-55); AST (SGOT) 43 U/L (5-34); Albumin 3.6 g/dL (3.4-4.8); Alkaline Phosphatase 125 U/L (40-110); Anion Gap 16 mmol/L (10-20); BUN (Urea Nitrogen) 15 mg/dL (9.8-20.1); Bilirubin, Total 0.7 mg/dL (0.2-1.2); Calc. Creatinine Clearance 0 mL/min (70-130); Calcium 8.2 mg/dL (7.8-10.44); Carbon Dioxide 29 mmol/L (23-31); Chloride 100 mmol/L (98-107); Estimated GFR-MDRD 67; Globulin 3.4 g/dL (2.4-3.5); Glucose 103 mg/dL (83-110); Potassium 4.5 mmol/L (3.5-5.1); Sodium 140 mmol/L (136-145)
[2020-05-31 20:14] LABS: Troponin I 0.013 ng/mL (< 0.028)
[2020-05-31] MEDS ORDERED: Ondansetron PF 4 MG/2 ML Vial IVP PRN (20:54)
[2020-05-31] MEDS ORDERED: Ondansetron ODT 4 MG TAB PO PRN (20:54)
[2020-05-31] MEDS ORDERED: Acetaminophen 325 MG TAB PO PRN (20:54)
[2020-05-31] MEDS ORDERED: Nitroglycerin 0.4 MG TAB 1 EACH PO PRN (21:21)
[2020-05-31 21:25] VITALS: BMI 35.0
--- NOTE | 2020-05-31 21:37 | PDOC.FPRHP ---
- History of Present Illness Chief Complaint: Frequent nose bleeds History of Present Illness: Patient is a 75 year old female with a history of A-Fib on warfarin, CVA w/o deficits 2019, HLD and HTN who presented to the ED with her daughter for intermittent epistaxis from right nostril for the past 2 weeks. The patient was seen in clinic on 05/25 and INR found to be 4. Patient instructed to stop warfarin for 3 days then resume at new dose of 5mg M/W/ and 2.5 on remaining days. She reports continued epistaxis afterward, with most recent occurring this am. The patient also complains of a constant dry cough that has not improved with Tesslalon Perles, albuterol inhaler and course of prednisone. She denies use of INDRA inhibitor. She notes urinary incontinence and chest pain associated with the cough. She says a nonitching red rash developed this morning on medial aspect of left knee. She reports worsening lower extremity edema and weakness after walking for recent weeks. She denies fever, chills, headache, vision changes, SOB, abdominal pain, nausea and vomiting. The patient was admitted to the hospital in 11/21 for chest pain. Stress test done at that time showed no ischemia, EF > 70%. Patient's creative writer is Dr. Morrissey. ED Course: In the ED, nitro paste and GI cocktail administered. Vitals stable. - Allergies/Adverse Reactions Allergies Allergy/AdvReac Type Severity Reaction Status Date / Time No Known Allergies Allergy Verified 11/15/19 14:26 - Home Medications Medication Instructions Recorded Confirmed Type Cholecalciferol (Vitamin D3) 400 unit PO DAILY 09/16/14 05/31/20 History [Vitamin D3] Furosemide 20 mg PO DAILY 09/16/14 05/31/20 History Aspirin [Ecotrin Low Strength] 81 mg PO DAILY #30 tab 05/30/18 05/31/20 Rx Atorvastatin Calcium [Lipitor] 40 mg PO HS #30 tab 05/30/18 05/31/20 Rx Benzonatate 100 mg PO TID PRN 11/15/19 05/31/20 History Ubidecarenone [Co Q-10] 100 mg PO BID 11/15/19 05/31/20 History Warfarin Sodium [Coumadin] 2.5 mg PO ASDIR 11/15/19 05/31/20 History Warfarin Sodium [Jantoven] 5 mg PO ASDIR 11/15/19 05/31/20 History Carvedilol 3.125 mg PO BID 30 Days #60 tablet 11/16/19 05/31/20 Rx Albuterol Sulfate [Albuterol 1 puff IH Q4HR PRN 05/31/20 05/31/20 History Sulfate Hfa] Fexofenadine HCl 180 mg PO DAILY 05/31/20 05/31/20 History - History PMHx: CVA w/o deficits in 2019, CHF (EF < 70%), A-Fib, HLD, HTN, Tremor PSHx: Cholecystectomy, Skin graft on RLE s/p wound debridement, x 1, hernia FHx: Mother - Colon Cancer Social: Denies alcohol, drugs, tobacco; lives with her daughter - Review of Systems General: denies: fever/chills, weight/appetite/sleep changes, fatigue Eyes: denies: eye pain, vision changes ENT: reports: other (epistaxis). denies: nasal congestion, rhinorrhea Respiratory: reports: cough. denies: congestion, shortness of breath Cardiovascular: reports: chest pain (with cough). denies: palpitation, edema Gastrointestinal: denies: nausea, vomiting, abdominal pain Genitourinary: denies: dysuria, polyuria Skin: reports: rashes (of left knee), jaundice Musculoskeletal: denies: pain, tenderness Neurological: reports: weakness (after walking). denies: syncope Psychological: denies: anxiety, depression - Vital signs BP: [138/79] HR: [86] RR: [18] Tmax: [98.3] Pox: [98]% on [RA] Wt: [74.39kg] - Physical Exam Constitutional: NAD, awake, alert and oriented HEENT: normocephalic and atraumatic Neck: supple, trachea midline Chest: no-tender to palpation, no lesions Heart: RRR, normal S1/S2, no murmurs/rubs/gallops -Heart: 2+ pitting edema bilaterally Lungs: no respiratory distress -Lungs: Expiratory wheezing throughout lung byrne Abdomen: soft, non-tender, bowel sounds present Musculoskeletal: normal structure, ROM grossly normal Neurological: no focal deficit, CN II-XII intact Skin: capillary refill <2 seconds -Skin: Erythematous rash to medial aspect of left knee Heme/Lymphatic: no purpura, no petechia Psychiatric: normal mood and affect FMR H&P: Results - Labs Result Diagrams: 05/31/20 16:41 06/01/20 04:57 Lab results: WBC 9.2 thou/uL (4.8-10.8) 05/31/20 16:41 Hgb 13.8 g/dL (12.0-16.0) 05/31/20 16:41 Hct 43.3 % (36.0-47.0) 05/31/20 16:41 MCV 98.4 fL (78.0-98.0) H 05/31/20 16:41 Plt Count 229 thou/uL (130-400) 05/31/20 16:41 Neutrophils % 70.0 % (42.0-75.0) 05/31/20 16:41 Sodium 140 mmol/L (136-145) 05/31/20 16:41 Potassium 4.5 mmol/L (3.5-5.1) 05/31/20 16:41 Chloride 100 mmol/L (98-107) 05/31/20 16:41 Carbon Dioxide 29 mmol/L (23-31) 05/31/20 16:41 BUN 15 mg/dL (9.8-20.1) 05/31/20 16:41 Creatinine 0.83 mg/dL (0.6-1.1) 05/31/20 16:41 Glucose 103 mg/dL (83-110) 05/31/20 16:41 Calcium 8.2 mg/dL (7.8-10.44) 05/31/20 16:41 Total Bilirubin 0.7 mg/dL (0.2-1.2) 05/31/20 16:41 AST 43 U/L (5-34) H 05/31/20 16:41 ALT 76 U/L (8-55) H 05/31/20 16:41 Alkaline Phosphatase 125 U/L (40-110) H 05/31/20 16:41 B-Natriuretic Peptide 229.2 pg/mL (0-100) H 05/31/20 16:41 Serum Total Protein 7.0 g/dL (6.0-8.3) 05/31/20 16:41 Albumin 3.6 g/dL (3.4-4.8) 05/31/20 16:41 - EKG Interpretation EKG: Afib, HR 83 bpm FMR H&P: A/P - Plan ACS rule out Patient complains of chest pain but notes it only occurs with her chronic, dry cough. trop 0.015 -> 0.013. CXR showed cardiomegaly, nothing acute. EKG showed afib. Recent admit in 11/21 for chest pain. Stress test completed at that time - no ischemia, EF > 70. Due to recent timeline, no additional stress test indicated at this time. -Trend trop -EKG PRN with exacerbation of chest pain -Duoneb for wheezing Mild transaminitis AST 43, ALT 76, Alk phos 125. Elevated from previous admission in 11/21 (AST 24, ALT 23, Alk phos 84). Patient denies GI symptoms. Due to mild elevation, CMP should be repeated outpatient to evaluate further. -Repeat CMP outpatient Afib EKG showed afib, no RVR. -Restart home meds HTN BP stable -Restart home meds HLD Lipid panel completed in 11/21: cholesterol 105, LDL 56, HDL 42, triglycerides 37. -Restart home meds CVA without deficits in 2018 Patient on warfarin 5mg MWF, 2.5 remaining days. INR today 1.4, subtherapeutic. This is likely due to patient not taking the medication for 3 days earlier this week. -On warfarin, ASA -Continue current warfarin regimen. Will need repeat INR later this week to evaluate effectiveness of current regimen. Unable to assess fully at this time due to recent stop in medication with resumption of new dosage. PCP: Trevon Code: DNR/DNI DVT PPx: Home warfarin Dispo: admit to tele obs for ACS rule out, eLOS < 48 hours FMR H&P: Upper Level - Plan Date/Time: 05/31/202136 Sonam Carvajal, have evaluated this patient and agree with findings/plan as outlined by r d internship resident. Pertinent changes/additions are listed here. 75 yo F with PMH HTN, HLD, chronic afib on warfarin presents for cough, chest pain, and new skin findings with daughter. Chest discomfort is only associated with coughing. No N, V, diaphoresis, weakness. She has had very good appetite. Past 2 weeks has had recurrent nosebleeds, R nostril. INR was supratherapeutic at 4 a week ago outpatient. Her dose was held x3 days and then restarted at decreased dose. Cough present x4 days. Given course of steroids, tessalon pearls , and albuterol outpatient. Patient does not feel any of these help. Using albuterol 3-4x daily. Possibly increased LE edema. PE: Gen: NAD HEENT: Moist MM, R nostril no active bleeding, clot present posteriorly Heart: irregularly irregular Lungs: decreased breath sounds, wheezing, no rhonchi No increased work of breathing Abd: soft, nontender, BS+ Ext: no cyanosis, small amount of edema BLE Skin: superficial petechial areas to lower legs around level of knees. No erythema, papules Psych: AOx3 75 yo F with PMH HTN, HLD, chronic afib on warfarin presents for cough, chest pain and is admitted for ACS rule out. ACS rule out - Chest pain 2/2 cough. Trops neg x3 and had normal stress test 11/21. No indication for further workup - BNP of 229, no recent check in prior years, normal considering age. EF estimated >70% at with stress test in 11/2019. Continue home lasix. Persistent cough - Not on INDRA, was wheezing on exam and has been using albuterol 3-4 times daily at home - No hx tobacco use. Could benefit from PFTs outpatient. Will schedule duonebs for now to see if this improves symptoms - Patient denies GERD symptoms. Also no orthopnea and does not appear volume overloaded on exam Mildly elevated LFTs - Unclear etiology as this is new finding for patient - Repeat and if persistently elevated, could have outpatient workup Subtherapeutic INR - INR 1.4 - Warfarin dose was held for 3 days and then restarted at decreased dose of 5mg MWF and 2.5 on other days. Not enough time has passed for this new regimen to reach steady state. Recommend to continue as prescribed and repeat INR in within the next week PCP: Lauryn Attending: Kevin Dispo: admit to telemetry for observation, expected LOS <48h Addendum - Attending - Attending Attestation Date/Time: 05/31/20 1428 I personally evaluated the patient and discussed the management with Dr. Bowers I agree with the History, Examination, Assessment and Plan documented above with any addition or exceptions noted below -75 yo F with PMH HTN, HLD, chronic afib on warfarin presents for cough, chest pain, and new skin findings with daughter. Chest discomfort is only associated with coughing. No N, V, diaphoresis, weakness. She has had very good appetite. Past 2 weeks has had recurrent nosebleeds, R nostril. INR was supratherapeutic at 4 a week ago outpatient. Her dose was held x3 days and then restarted at decreased dose. Cough present x4 days. Given course of steroids, tessalon pearls, and albuterol outpatient. Patient does not feel any of these help. Using albuterol 3-4x daily. Possibly increased LE edema. PMH/PSH/Meds/SH reviewed and agree with resident's documentation. Afebrile VSS. Afebrile VSS. Exam repeated by me and agree with resident's findings. Labs: H/H=13.8/43.3, WBC=9.2, Hxs=439, INR=1.4, Zr=225, K=4.5, Kf=689, CO2=29, BUN/Cr=15/0.83, Jbzv=859, YQN=049, AST/ALT=43/76 , trop=0.015 CXR- cardiomegaly. A/P: 1) ACS rule out- continue to trend cardiac enzymes; had stress test in Nov which was negative. 2) Persistent cough - mildly elevated BNP; no recent echo; consider repeat echo. 3) Epistaxis- blood clot in right nare; may need coagulation of area. 3) Chornic Afib- continue warfarin; monitro INR. .
[2020-05-31] MEDS ORDERED: Nitroglycerin 2% Ointment 1 INCH/1 GM Packet TOP SCH (22:00)
[2020-05-31] MEDS ORDERED: Benzonatate 100 MG CAP PO PRN (23:25)
[2020-05-31] MEDS ORDERED: Albuterol 200 PUFF (6.7GM INHALER) INH PRN (23:25)
[2020-05-31 23:30] LABS: Troponin I 0.012 ng/mL (< 0.028)
--- NOTE | 2020-06-01 05:37 | PDOC.FM ---
- Subjective Subjective: Patient walking back from the restroom. She reports no acute events overnight. States she still has chest pain associated with her cough. Reports she has been having a runny nose. Denies fever, chills, shortness of breath, orthopnea. - Objective MAR Reviewed: Yes Vital Signs & Weight: Vital Signs (12 hours) Temp Pulse Resp BP Pulse Ox 06/01/20 05:10 97.8 F 81 20 170/87 H 96 06/01/20 00:16 98.3 F 84 22 H 154/78 H 95 05/31/20 21:06 98.4 F 90 22 H 154/86 H 96 05/31/20 20:54 96 Weight Weight 81.42 kg I&O: 05/30/20 05/31/20 06/01/20 06:59 06:59 06:59 Intake Total 240 Output Total 1100 Balance -860 Result Diagrams: 05/31/20 16:41 06/01/20 04:57 Phys Exam - Physical Examination Constitutional: NAD HEENT: PERRLA, moist MMs Respiratory: no wheezing, clear to auscultation bilateral Cardiovascular: RRR, no significant murmur Gastrointestinal: soft, non-tender, positive bowel sounds 2+ pitting edema b/l LE Neurological: non-focal, normal sensation, moves all 4 limbs Psychiatric: normal affect, A&O x 3 Skin: no rash, cap refill <2 seconds Dx/Plan - Plan Plan: Atypical Chest Pain, Likely GERD vs allergic rhinitis, r/o ACS Patient complains of chest pain but notes it only occurs with her chronic, dry cough. CXR showed cardiomegaly, nothing acute. EKG showed afib. Recent admit in 11/21 for chest pain. Stress test completed at that time - no ischemia, EF > 70. Due to recent timeline, no additional stress test indicated at this time. -Trop neg x 3 -Duoneb for wheezing - will switch hyacinth to claritin at home - start PPI, f/u with PCP Lower Extremity Edema x 1 month Echo in 2018 showed mod-severe tricuspid regurgutation, mild stenosis - will order echo and have patient f/u in outpatient Mild transaminitis, resolved -Repeat CMP outpatient Afib EKG showed afib, no RVR. -Restart home meds HTN BP stable -Restart home meds HLD Lipid panel completed in 11/21: cholesterol 105, LDL 56, HDL 42, triglycerides 37. -Restart home meds CVA without deficits in 2018 Patient on warfarin 5mg MWF, 2.5 remaining days. INR today 1.4, subtherapeutic. This is likely due to patient not taking the medication for 3 days earlier this week. -On warfarin, ASA -Continue current warfarin regimen. Will need repeat INR Monday to evaluate effectiveness of current regimen. Unable to assess fully at this time due to recent stop in medication with resumption of new dosage. PCP: Trevon Code: DNR/DNI DVT PPx: Home warfarin Dispo: admit to tele obs for ACS rule out, eLOS < 48 hours Addendum - Attending - Attending Attestation Date/Time: 06/01/20 [id number] I personally evaluated the patient and discussed the management with Dr. Vazquez. I agree with the History, Examination, Assessment and Plan documented above with any addition or exceptions noted below. Patient overall feeling well. INR subtherapeutic. Starting PPI for chronic cough , should be stable for discharge to follow up with me in clinic.
[2020-06-01 05:41] LABS: ALT (SGPT) 53 U/L (8-55); AST (SGOT) 25 U/L (5-34); Albumin 3.2 g/dL (3.4-4.8); Alkaline Phosphatase 81 U/L (40-110); Anion Gap 8 mmol/L (10-20); BUN (Urea Nitrogen) 14 mg/dL (9.8-20.1); Bilirubin, Total 0.9 mg/dL (0.2-1.2); Calc. Creatinine Clearance 81 mL/min (70-130); Calcium 7.9 mg/dL (7.8-10.44); Carbon Dioxide 34 mmol/L (23-31); Chloride 103 mmol/L (98-107); Estimated GFR-MDRD 74; Globulin 2.5 g/dL (2.4-3.5); Glucose 88 mg/dL (83-110); Potassium 3.7 mmol/L (3.5-5.1); Protein, Total 5.7 g/dL (6.0-8.3); Sodium 141 mmol/L (136-145)
[2020-06-01] MEDS: Carvedilol 3.125 MG TAB PO SCH ×2 (07:53→16:16)
[2020-06-01] MEDS ORDERED: Furosemide 20 MG TAB PO SCH (09:00)
[2020-06-01] MEDS ORDERED: Cholecalciferol (Vitamin D3) 400 UNITS TAB PO SCH (09:00)
[2020-06-01] MEDS ORDERED: Aspirin 81 mg Enteric Coated Tablet PO SCH (09:00)
[2020-06-01] MEDS ORDERED: Enoxaparin Sodium 40 MG/0.4 ML SYRINGE SC SCH (09:00)
[2020-06-01] MEDS ORDERED: Loratadine 10 MG TAB PO SCH (09:00)
[2020-06-01] MEDS ORDERED: Ubidecarenone 50 MG CAP PO SCH (09:00)
[2020-06-01 11:32] VITALS: TEMP 98.4
[2020-06-01 12:02] LABS: SARS-CoV-2 MS2 Positive; SARS-CoV-2 N Gene Negative; SARS-CoV-2 S Gene Negative; SARS-CoV-2 by NAA Not Detected (NotDetected); SARS-CoV-2 orf1ab Negative
[2020-06-01 16:26] VITALS: BP 162/73
[2020-06-01] MEDS ORDERED: Warfarin Sodium 5 MG TAB PO SCH (17:00)
[2020-06-01] MEDS ORDERED: Atorvastatin Calcium 40 MG TAB PO SCH (21:00)
--- NOTE | 2020-06-02 14:36 | DIS ---
DATE OF ADMISSION: 05/31/2020 DATE OF DISCHARGE: 06/01/2020 RESIDENT: Rhona Vazquez DO ADMITTING ATTENDING: Felicitas Brown MD DISCHARGE ATTENDING: Jose D Lester MD CONSULTS: None. PROCEDURES: None. PRIMARY DIAGNOSES: 1. Atypical chest pain, likely GERD vs. allergic rhinitis, r/o acute coronary syndrome SECONDARY DIAGNOSES: 2. Lower extremity edema 3. mild transaminitis, resolved 4. atrial fibrillation 5. hypertension 6. hyperlipidemia 7. CVA without deficits in 2019. DISCHARGE MEDICATIONS: 1. Albuterol sulfate 8.5 g one puff one IH q.4 hours 2. aspirin 81 mg p.o. daily 3. atorvastatin 40 mg p.o. at bedtime 4. benzonatate 100 mg p.o. t.i.d. 5. carvedilol 3.125 mg p.o. b.i.d. for 30 days 6. cholecalciferol 10 mcg capsule 400 units p.o. daily 7. furosemide 20 mg p.o. daily 8. loratadine 10 mg p.o. daily for 30 days 9. pantoprazole 40 mg p.o. daily for 30 days 10. Ubidecarenone 100 mg p.o. b.i.d. 11. warfarin sodium 2.5 mg on and 5 mg on DISCONTINUED MEDICATIONS: Fexofenadine. HISTORY OF PRESENT ILLNESS/HOSPITAL COURSE: The patient is a 75-year-old female with a history of atrial fibrillation, on warfarin; CVA without deficits, hyperlipidemia, hypertension, presents to the ED with her daughter for intermittent epistaxis from the right nostril for the past few weeks. The patient was seen in the clinic on 05/25 and INR was 4. The patient was instructed to stop warfarin for 3 days and resume at new dose of 5 mg Monday, Monday, and Monday and 2.5 on remaining days. The patient's INR was 1.4 in the hospital, subtherapeutic, likely due to stopping her warfarin for 3 days earlier in the week. Will repeat warfarin later in the week after 1 week of continued warfarin. The patient notes a chronic cough, associated with allergies, and states she has chest pain when she coughs. The patient was admitted to the hospital in November for chest pain. A stress test was done at that time which showed no ischemia. EF was greater than 70%. The patient's legal recovery specialist is Dr. Morrissey. In the ED, nitro paste and GI cocktail were administered. Patient was admitted for an ACS rule out. Troponins were negative x3. Chest x-ray showed cardiomegaly, no acute changes. EKG showed atrial fibrillation. The patient was given DuoNebs for wheezing. Patient initially had mild transaminitis which resolved. For patient's chronic allergic rhinitis, she was switched from Devora to Claritin to take at home. Echo was ordered and performed with results to be followed by PCP in the office in the next week. Recommended repeat CMP as outpatient and patient was told to follow up labs on Monday to get repeat INR to assess effectiveness of Coumadin. DISPOSITION: Stable. DISCHARGE INSTRUCTIONS: Location: Home. Diet: Heart healthy. Activity: Ad isma. Followup: On Tuesday 06/05 for a lab draw with repeat INR. Follow up with Dr. Lester in 7 to 14 days. Job ID: [id number] MTDD
[2020-06-02] MEDS ORDERED: Warfarin Sodium 2.5 MG TAB PO SCH (17:00)
== END 2020-06-01 16:42 | disposition home or self-care (01) ==
LOC: ERS 16:02 → 2SW 19:15
PROVIDERS: ADMIT Family Medicine; ATTEND Family Medicine
DX: R07.89 Other chest pain (principal); R04.0 Epistaxis; R60.0 Localized edema; R74.0 Nonspecific elevation of levels of transaminase and lactic acid dehydrogenase [LDH]; I10 Essential (primary) hypertension; I48.20 Chronic atrial fibrillation, unspecified; E78.5 Hyperlipidemia, unspecified; R05 Cough; Z86.73 Personal history of transient ischemic attack (TIA), and cerebral infarction without residual deficits; Z79.01 Long term (current) use of anticoagulants; Z79.82 Long term (current) use of aspirin; Z79.899 Other long term (current) drug therapy; Z66 Do not resuscitate; Z20.828 Contact with and (suspected) exposure to other viral communicable diseases
CPT/HCPCS: 36415; 71045; 80053; 83880; 84484; 85025; 85610; 85730; 87635; 93005; 93306; 94760; G0378; U0003

== ENCOUNTER 2020-08-17 15:22 | Inpatient (IN) | payer MEDICAID, SELFPAY ==
[2020-08-17 16:21] LABS: #Lymphocytes 0.4 thou/uL (1.20-3.40); #Monocytes 0.5 thou/uL (0.11-0.59); #Neutrophils 6.2 thou/uL (1.40-6.50); %Basophils 0.6 % (0.0-1.0); %Eosinophils 0.3 % (0.0-10.0); %Lymphocytes 6.1 % (21.0-51.0); %Monocytes 7.2 % (0.0-10.0); %Neutrophils 85.8 % (42.0-75.0); Hemoglobin 12.9 g/dL (12.0-16.0); Mean Corpuscular HGB CONC 31.2 g/dL (32.0-36.0); Mean Corpuscular Hemoglobin 29.6 pg (27.0-31.0); Mean Corpuscular Volume 94.8 fL (78.0-98.0); Mean Platelet Volume 8.4 fL (7.4-10.4); Platelet Count 171 thou/uL (130-400); RBC Distribution Width 13.6 % (11.5-14.5); Red Blood Cell (RBC) Count 4.36 mill/uL (4.20-5.40); White Blood Cell (WBC) Count 7.3 thou/uL (4.8-10.8)
--- NOTE | 2020-08-17 16:32 | RAD ---
Portable frontal chest radiograph: 08/17/2020 COMPARISON: 05/31/2020 HISTORY: Difficulty breathing,extremity swelling FINDINGS: There is prominent enlargement of the cardiac silhouette with pulmonary vascular congestion . There is mild patchy opacity in the lung bases, left greater than right, with probable small volume pleural effusions. IMPRESSION: Markedly enlarged cardiac silhouette with pulmonary vascular congestion and hazy density in the lung bases with probable small bilateral pleural effusions. Findings suggest pulmonary edema. Prominent cardiac silhouette may signify cardiomegaly and/or pericardial fluid. Recommend foll ow-up imaging following treatment.
[2020-08-17 16:48] LABS: ALT (SGPT) 50 U/L (8-55); AST (SGOT) 59 U/L (5-34); Albumin 3.6 g/dL (3.4-4.8); Alkaline Phosphatase 84 U/L (40-110); BUN (Urea Nitrogen) 31 mg/dL (9.8-20.1); Bilirubin, Total 0.9 mg/dL (0.2-1.2); Calc. Creatinine Clearance 0 mL/min (70-130); Calcium 8.6 mg/dL (7.8-10.44); Estimated GFR-MDRD 57; Globulin 3.4 g/dL (2.4-3.5); Glucose 129 mg/dL (83-110)
[2020-08-17 16:58] LABS: Anion Gap 18 mmol/L (10-20); Carbon Dioxide 34 mmol/L (23-31); Chloride 95 mmol/L (98-107); Potassium 4.6 mmol/L (3.5-5.1); Sodium 142 mmol/L (136-145)
[2020-08-17 17:08] LABS: CKMB 9.1 ng/mL (0-6.6)
--- NOTE | 2020-08-17 17:59 | PDOC.FPRHP ---
- History of Present Illness Chief Complaint: SOB History of Present Illness: Ms Lemon is a 75yo female with PMHx of CHF and Afib who presents with SOB that started today. Daughter states that patient was increasingly lethargic and weak today and also reported 2 weeks of increasing leg edema. She also reports that patient has not been able to lie flat and that she has been having wheezing along with her SOB. Daughter denies that patient has had sick contacts, fever/chills. She had not been reporting GI or symptoms. She does admit that she has had itchy eyes and rhinorrhea for several days. Daughter states that t hey were sent over from clinic because patient was solmenent during exam and her O2 sats were reportedly in the 60s. Pt is not on oxygen at home and normally is very independent with her ADLs. Daughter states that pt was seeing Dr. Morrissey of cardiology but has not seen her in "some time." ED Course: 40mg IV Lasix - Allergies/Adverse Reactions Allergies Allergy/AdvReac Type Severity Reaction Status Date / Time No Known Allergies Allergy Verified 11/15/19 14:26 - Home Medications Medication Instructions Recorded Confirmed Type Cholecalciferol (Vitamin D3) 400 unit PO DAILY 09/16/14 08/17/20 History [Vitamin D3] Furosemide 20 mg PO DAILY 09/16/14 08/17/20 History Aspirin [Ecotrin Low Strength] 81 mg PO DAILY #30 tab 05/30/18 08/17/20 Rx Atorvastatin Calcium [Lipitor] 40 mg PO HS #30 tab 05/30/18 08/17/20 Rx Ubidecarenone [Co Q-10] 100 mg PO BID 11/15/19 08/17/20 History Warfarin Sodium [Coumadin] 2.5 mg PO ASDIR 11/15/19 08/17/20 History Warfarin Sodium [Jantoven] 5 mg PO ASDIR 11/15/19 08/17/20 History Carvedilol 3.125 mg PO BID 30 Days #60 tablet 11/16/19 08/17/20 Rx - History PMHx: Afib, CVA 2 yrs ago, HFrEF (Dr Morrissey), HLD PSHx: Cholecystectomy, hernia repair, skin graft, C/S, Knee surgery FHx: Cancer Social: Denies tobacco, alcohol, drug use - Review of Systems General: denies: fever/chills, fatigue Eyes: denies: eye pain, vision changes ENT: denies: nasal congestion, rhinorrhea Respiratory: reports: shortness of breath. denies: cough, congestion Cardiovascular: reports: edema, orthopnea. denies: chest pain Gastrointestinal: denies: nausea, vomiting, diarrhea, abdominal pain Genitourinary: denies: dysuria, discharge Skin: denies: rashes, lesions Musculoskeletal: reports: swelling. denies: pain Neurological: denies: weakness - Vital signs BP: 114/57, Pulse: 89, O2 sat: 95 on 6L - Physical Exam Constitutional: other (somelent, but is able to answer questions after repeated probing) HEENT: normocephalic and atraumatic, PERRLA Neck: supple Heart: normal S1/S2, no murmurs/rubs/gallops, pulses present, other (in afib) Lungs: no rales/rhonchi (wheezing noted, on NC at 5-6L) Abdomen: soft, non-tender, bowel sounds present, no masses/distention Neurological: no focal deficit Heme/Lymphatic: other (2+ edema bilaterally) Psychiatric: other (daughter had to answer questions for patient and provide history) FMR H&P: Results - Labs Result Diagrams: 08/18/20 04:17 08/18/20 04:17 Lab results: WBC 7.3 thou/uL (4.8-10.8) 08/17/20 15:55 Hgb 12.9 g/dL (12.0-16.0) 08/17/20 15:55 Hct 41.3 % (36.0-47.0) 08/17/20 15:55 MCV 94.8 fL (78.0-98.0) 08/17/20 15:55 Plt Count 171 thou/uL (130-400) 08/17/20 15:55 Neutrophils % 85.8 % (42.0-75.0) H 08/17/20 15:55 Sodium 142 mmol/L (136-145) 08/17/20 15:55 Potassium 4.6 mmol/L (3.5-5.1) 08/17/20 15:55 Chloride 95 mmol/L (98-107) L 08/17/20 15:55 Carbon Dioxide 34 mmol/L (23-31) H 08/17/20 15:55 BUN 31 mg/dL (9.8-20.1) H 08/17/20 15:55 Creatinine 0.96 mg/dL (0.6-1.1) 08/17/20 15:55 Glucose 129 mg/dL (83-110) H 08/17/20 15:55 Calcium 8.6 mg/dL (7.8-10.44) 08/17/20 15:55 Total Bilirubin 0.9 mg/dL (0.2-1.2) 08/17/20 15:55 AST 59 U/L (5-34) H 08/17/20 15:55 ALT 50 U/L (8-55) 08/17/20 15:55 Alkaline Phosphatase 84 U/L (40-110) 08/17/20 15:55 CK-MB (CK-2) 9.1 ng/mL (0-6.6) H* 08/17/20 15:55 B-Natriuretic Peptide 741.5 pg/mL (0-100) H 08/17/20 15:55 Serum Total Protein 7.0 g/dL (6.0-8.3) 08/17/20 15:55 Albumin 3.6 g/dL (3.4-4.8) 08/17/20 15:55 - EKG Interpretation EKG: in Afib, no tachcardia, no P waves seen - Radiology Interpretation Chest x-ray Status: image reviewed by me, report reviewed by me (markedly enlarged cardiac silhouette with PV congestion and hazy density in lung bases with probably small bilateral pleural effusion. pulomary edema. prominent cardiac silhouette may signify cardiomegaly and or pericardical fluid) FMR H&P: A/P - Plan Pt is 75 y/o F who presented with SOB and wheezing. ##Acute Respiratory Failure -2/2 most likely to CHF exacerbation -s/p lasix in ED -COVID pending -BNP 741 -CXR showed pulmonary edema -currently satting 97% on 5-6L -Lasix IV BID -last echo in 2018, will repeat in AM, BB held -trop 0.082, continue to trend, EKG showed sinus with Afib -strict I/O, daily weights ##UTI -UA showed leuks, bacteria, WBCs -sending for culture -rocephin started ##Afib -currently rate controlled -on warfarin at home, PT INR ordered -continue home meds ##HLD -aware -restart home meds ##Hx of CVA -aware -continue home meds CODE: DNAR DIET: HH VTE: on warfarin PCP: SUN: Trevon Dispo: admitted to telemetry for monitoring. continue to diurese and monitoring sats. FMR H&P: Upper Level - Plan Date/Time: 08/17/20 4050 Ms Lemon is a 75yo female with pmh of HFpEF presenting with SOB and AMS that started this morning. She is Norwegian speaking and confused on exam. Her daughter provided much of the history. Apparently she was acting normally yesterday and today she became confused and lethargic. Reports b/l LE edema increasing over the last 2 weeks and orthopnea. Denies fever, chills or sick contacts. She is not on oxygen at baseline. PE: VS reviewed, 95% on 6L NC General: NAD CV: Irregularly irregular. No murmur. Unable to access JVD due to patient positioning Pulm: Diffuse wheezing, bibasilar crackles Extremities: edema present to mid shins Neuro: No focal weakness Psych: Opens eyes to voice. Oriented to person only A/P: Acute hypoxic respiratory failure 2/2 HFpEF exacerbation -95% on 6L NC, no home O2 at baseline. BNP elevated and CXR c/w pulm congestion and b/l effusions. s/p 40mg IV Lasix in ED. Will monitor urine output and adjust Lasix accordingly. She is on 20mg daily at home. Will order 40mg IV for AM and 1400. Fluid restrict and HH diet. Per dc summary 06/2020 echo was preformed and was awaiting read however there is no report seen on chart review. Her last echo in EMR was 05/2018 with normal EF, stress test with >70% EF last year. Will order repeat echo as she has not seen Dr Morrissey in years. Admit to tele. I, Andreina Aragon, have evaluated this patient and agree with findings/plan as outlined by software intern resident. Pertinent changes/additions are listed here. Addendum - Attending - Attending Attestation Date/Time: 08/18/20 2521 I personally evaluated the patient and discussed the management with Dr. Blanchard on 08/17/20 I agree with the History, Examination, Assessment and Plan documented above with any addition or exceptions noted below -75yo female with PMHx of HFrEF, Afib, and CVA who presents with SOB that started today. Daughter states that patient was increasingly lethargic and weak today and also reported 2 weeks of increasing leg edema. She also reports that patient has not been able to lie flat and that she has been having wheezing along with her SOB. Daughter denies that patient has had sick contacts, fever/chills. She had not been reporting GI or symptoms. PMH/PSH Meds/SH reviewed and agree with resident's documentation. Afebrile P80 BP 145/82 RR20 98% on 3L NC Exam repeated by me and agree with resident's findings. Labs: H/H=12.9/41.3, WBC=7.3, Svn=972, Rt=928, K=4.6, BUN/Cr=31/0.96, OQA=618.5, trop=0.082 -> 0.103, U/A=1+ bact, 21- 50 WBC, (+) leuko est; CXR-cardiomegaly; pulm vascular congestion. A/P: 1) CHF exacerbation - continue lasix; echo ordered. 2) UTI- will start rocephin; urine culture sent. 3) Afib- rate controlled; continue home meds.
[2020-08-17] MEDS ORDERED: Furosemide 40 MG/4 ML VIAL ONE (18:31)
[2020-08-17] MEDS ORDERED: Acetaminophen 325 MG TAB PO PRN (18:48)
[2020-08-17] MEDS ORDERED: Warfarin Sodium 2.5 MG TAB PO SCH (19:00)
[2020-08-17 19:50] LABS: Bilirubin Negative (Negative); Blood, Urine Negative (Negative); Clarity Clear (Clear); Glucose, Urine (Dipstick) Normal (Negative); Ketone, Urine Negative (Negative); Leukocyte 500 Leu/uL (Negative); Nitrite Negative (Negative); Protein, Urine (Dipstick) Negative (Neg-Trace); RBC/HPF 0-3 HPF (0-3); Specific Gravity, Urine 1.011 (1.002-1.036); Squamous Epithelial 0-3 HPF (0-3); Urobilinogen Normal mg/dL (Less than 2); WBC/HPF 21-50 HPF (0-3); pH, Urine 5.5 (5.0-9.0)
[2020-08-17 19:52] LABS: Bacteria/HPF 1+ HPF (None Seen)
[2020-08-17] MEDS: Atorvastatin Calcium 40 MG TAB PO SCH (22:37)
[2020-08-17 23:14] VITALS: BMI 35.6
[2020-08-17 23:59] LABS: CKMB 8.4 ng/mL (0-6.6); Critical Call CKMB RESULT DECREASING
[2020-08-18] MEDS: cefTRIAXone\\ROCEPHIN 1 GM in Sodium Chloride 0.9% 100 ML IVPB SCH (01:39)
[2020-08-18 04:30] LABS: #Lymphocytes 0.8 thou/uL (1.20-3.40); #Monocytes 0.9 thou/uL (0.11-0.59); #Neutrophils 5.1 thou/uL (1.40-6.50); %Eosinophils 0.3 % (0.0-10.0); %Lymphocytes 11.3 % (21.0-51.0); %Monocytes 13.5 % (0.0-10.0); %Neutrophils 74.9 % (42.0-75.0); Hemoglobin 12.2 g/dL (12.0-16.0); Mean Corpuscular HGB CONC 31.6 g/dL (32.0-36.0); Mean Corpuscular Hemoglobin 29.9 pg (27.0-31.0); Mean Corpuscular Volume 94.6 fL (78.0-98.0); Mean Platelet Volume 8.5 fL (7.4-10.4); Platelet Count 151 thou/uL (130-400); RBC Distribution Width 13.4 % (11.5-14.5); Red Blood Cell (RBC) Count 4.09 mill/uL (4.20-5.40); White Blood Cell (WBC) Count 6.8 thou/uL (4.8-10.8)
[2020-08-18 04:35] LABS: INR-International Normal Ratio 1.4; Prothrombin Time 17.7 sec (12.0-14.7)
[2020-08-18 04:53] LABS: BUN (Urea Nitrogen) 30 mg/dL (9.8-20.1); Calc. Creatinine Clearance 75 mL/min (70-130); Calcium 8.2 mg/dL (7.8-10.44); Estimated GFR-MDRD 67; Glucose 86 mg/dL (83-110)
[2020-08-18 05:03] LABS: Anion Gap 17 mmol/L (10-20); Carbon Dioxide 34 mmol/L (23-31); Chloride 96 mmol/L (98-107); Potassium 3.8 mmol/L (3.5-5.1); Sodium 143 mmol/L (136-145)
--- NOTE | 2020-08-18 05:58 | PDOC.FM ---
- Subjective Subjective: Patient was difficult to arouse this morning with sternal rub. Called nurse who was able to awake patient. Patient was able to answer all questions, was AAOx3, and denied any pain. She was requiring 3L NC and was sleeping sitting up in bed. According to her daughter, she was unchanged from when they brought her into the ED. She did not take her warfarin yesterday and has increased her diet but not specifically green vegetables. - Objective MAR Reviewed: Yes Vital Signs & Weight: Vital Signs (12 hours) Temp Pulse Resp BP BP Pulse Ox 08/18/20 04:00 97 08/18/20 03:10 99.4 F 81 18 110/59 L 97 08/17/20 22:49 98 08/17/20 21:54 98.8 F 80 20 145/82 H 98 Weight Weight 82.917 kg Result Diagrams: 08/18/20 04:17 08/18/20 04:17 EKG Reviewed by me: Yes (afib 70s-80s) Phys Exam - Physical Examination Sleeping, sitting up in bed; 3L NC in place HEENT: moist MMs Respiratory: no rales, no rhonchi poor inspiratory effort Cardiovascular: no significant murmur irregularly irregular Gastrointestinal: soft, positive bowel sounds 1+ pitting edema with compression stockings on Psychiatric: A&O x 3 Skin: no rash Dx/Plan - Plan Plan: Acute Respiratory Failure likely 2/2 to CHF exacerbation -s/p lasix in ED -COVID pending -BNP 741 -CXR showed pulmonary edema -currently satting 95% on 3 L NC -Lasix 40 mg IV BID -ECHO on last admission reported in DC summary, but results not in the medical record. Will contact today to find results. last echo with read in 2018 showed normal EF -consider repeat echo today -strict I/O, daily weights Indeterminate trops -trop 0.082 > 0.103 > 0.121, will continue to trend -EKG showed sinus with Afib -likely 2/2 to CHF UTI -UA showed leuks, bacteria, WBCs -sending for culture -rocephin started Afib -currently rate controlled -on warfarin at home -INR subtherapeutic at 1.4 -will review clinic records to check dosage adjustments -continue home meds HLD -aware -restart home meds Hx of CVA -aware -continue home meds Dispo: pending echo results and fluid status Addendum - Attending - Attending Attestation Date/Time: 08/18/20 0331 I personally evaluated the patient and discussed the management with Dr. Tracy. I agree with the History, Examination, Assessment and Plan documented above with any addition or exceptions noted below. Continue diuresis. Post acute screen placed. Discussed SNF/Rehab placement following hospitalization with daughter who was agreeable as the patient is significantly deconditioned.
[2020-08-18] MEDS: Furosemide 40 MG/4 ML VIAL SLOW IVP SCH ×2 (06:30→15:31)
[2020-08-18 08:43] LABS: SARS-CoV-2 MS2 Positive; SARS-CoV-2 N Gene Negative; SARS-CoV-2 S Gene Negative; SARS-CoV-2 by NAA Not Detected (NotDetected); SARS-CoV-2 orf1ab Negative
[2020-08-18] MEDS ORDERED: FLU VACC QS2020-21(65YR UP)/PF 240 MCG/0.7 ML SYRINGE IM ONE (09:00)
[2020-08-18] MEDS ORDERED: Enoxaparin Sodium 40 MG/0.4 ML SYRINGE SC SCH (09:00)
[2020-08-18 09:25] LABS: Troponin I 0.146 ng/mL (< 0.028)
[2020-08-18] MEDS ORDERED: Warfarin Sodium 2.5 MG TAB PO SCH (11:00)
[2020-08-18 12:10] LABS: Troponin I 0.133 ng/mL (< 0.028)
[2020-08-18] MEDS: Warfarin Sodium 2.5 MG TAB PO SCH (17:18)
[2020-08-18] MEDS: Atorvastatin Calcium 40 MG TAB PO SCH (21:04)
[2020-08-19] MEDS: cefTRIAXone\\ROCEPHIN 1 GM in Sodium Chloride 0.9% 100 ML IVPB SCH (00:06)
[2020-08-19 04:30] LABS: #Lymphocytes 0.4 thou/uL (1.20-3.40); #Monocytes 1.1 thou/uL (0.11-0.59); #Neutrophils 7.6 thou/uL (1.40-6.50); %Basophils 0.3 % (0.0-1.0); %Eosinophils 0.2 % (0.0-10.0); %Lymphocytes 4.6 % (21.0-51.0); %Monocytes 11.8 % (0.0-10.0); %Neutrophils 83.1 % (42.0-75.0); Hemoglobin 13.2 g/dL (12.0-16.0); Mean Corpuscular HGB CONC 31.3 g/dL (32.0-36.0); Mean Corpuscular Hemoglobin 29.7 pg (27.0-31.0); Mean Corpuscular Volume 95.1 fL (78.0-98.0); Mean Platelet Volume 8.5 fL (7.4-10.4); Platelet Count 168 thou/uL (130-400); RBC Distribution Width 13.3 % (11.5-14.5); Red Blood Cell (RBC) Count 4.45 mill/uL (4.20-5.40); White Blood Cell (WBC) Count 9.2 thou/uL (4.8-10.8)
[2020-08-19 04:37] LABS: INR-International Normal Ratio 1.4; Prothrombin Time 17.2 sec (12.0-14.7)
[2020-08-19 04:53] LABS: BUN (Urea Nitrogen) 30 mg/dL (9.8-20.1); Calc. Creatinine Clearance 79 mL/min (70-130); Calcium 8.6 mg/dL (7.8-10.44); Estimated GFR-MDRD 71; Glucose 111 mg/dL (83-110)
[2020-08-19 05:02] LABS: Anion Gap 19 mmol/L (10-20); Carbon Dioxide 40 mmol/L (23-31); Chloride 91 mmol/L (98-107); Potassium 3.9 mmol/L (3.5-5.1); Sodium 146 mmol/L (136-145)
[2020-08-19] MEDS: Furosemide 40 MG/4 ML VIAL SLOW IVP SCH ×2 (05:11→14:41)
--- NOTE | 2020-08-19 06:14 | PDOC.FM ---
- Subjective Subjective: Overnight nurse paged and reported that Pt was getting restless and wanted out of bed. Her HR at that time was 110, BP was 190/88, O2 sats in 60's. Her O2 was increased to 4L and her O2 saturation responded appropriately. Her repeat BP was 157/79. Patient was able to answer questions this morning but was retracting with inspiration. She reported that she was having difficulty breathing. I checked her O2 saturation and it was 97%. She denied chest pain. Daughter reports that she continues to be extremely weak. - Objective MAR Reviewed: Yes Vital Signs & Weight: Vital Signs (12 hours) Temp Pulse Resp BP Pulse Ox 08/19/20 04:45 98.8 F 98 20 157/79 H 95 08/19/20 00:17 97.7 F 94 22 H 153/83 H 94 L 08/18/20 20:00 98 08/18/20 19:50 98.7 F 90 20 138/79 98 Weight Weight 80.876 kg I&O: 08/17/20 08/18/20 08/19/20 06:59 06:59 06:59 Intake Total 260 600 Output Total 950 Balance -690 600 Result Diagrams: 08/19/20 04:12 08/19/20 04:12 EKG Reviewed by me: Yes (afib 70s-90s) Phys Exam - Physical Examination Uncomfortable appearing. HEENT: moist MMs Neck: supple, full ROM Respiratory: no wheezing, no rales, no rhonchi Retractiong Cardiovascular: no significant murmur Irregularly irregular Gastrointestinal: soft, non-tender, no distention trace edema Neurological: moves all 4 limbs Psychiatric: normal affect Skin: no rash Dx/Plan - Plan Plan: Acute Respiratory Failure likely 2/2 to CHF exacerbation -s/p lasix in ED -COVID: negatice -BNP 741, will repeat today -CXR showed pulmonary edema -currently satting 97% on 4 L NC, desats with exertion -Lasix 40 mg IV BID -Echo not done yesterday due to unknown COVID status, COVID test negative, Echo to be done today -only 700 cc output overnight -will repeat chest xray and obtain ABG due to concern for patient's respiratory status -strict I/O, daily weights Indeterminate trops -trop 0.082 > 0.103 > 0.121 > 0.133 -EKG showed sinus with Afib -likely 2/2 to CHF UTI -UA showed leuks, bacteria, WBCs -sending for culture -rocephin started Afib -currently rate controlled -on warfarin at home -INR subtherapeutic at 1.4 -dosage recently adjusted in clinic due to supratherapeutic levels -continue home meds HLD -aware -restart home meds Hx of CVA -aware -continue home meds Dispo: pending further medical management Addendum - Attending - Attending Attestation Date/Time: 08/19/20 6969 I personally evaluated the patient and discussed the management with Dr. José. I agree with the History, Examination, Assessment and Plan documented above with any addition or exceptions noted below. She became more obtunded overnight. ABG show respiratory acidosis. Tx to IMCU for BiPAP. No hx COPD. Cards consulted for HF.
[2020-08-19] MEDS: Ubidecarenone 50 MG CAP PO SCH ×2 (08:58→19:47)
[2020-08-19] MEDS: Aspirin 81 mg Enteric Coated Tablet PO SCH (08:58)
[2020-08-19] MEDS: Cholecalciferol (Vitamin D3) 400 UNITS TAB PO SCH (08:59)
[2020-08-19] MEDS ORDERED: Non-Formulary Item 1 EACH (Ubidecarenone [Co Q-10] 100 MG Capsule) PO SCH (09:00)
[2020-08-19] MEDS ORDERED: CHOLECALCIFEROL 400 UNIT PO SCH (09:00)
[2020-08-19] MEDS ORDERED: Carvedilol 3.125 MG TAB PO SCH (09:00)
--- NOTE | 2020-08-19 12:04 | RAD ---
Chest AP view INDICATION: Acute respiratory failure COMPARISON: August 17, 2020 FINDINGS: Lungs: Central edema pattern has worsened. Cardiac silhouette: Prominent cardiomegaly stable. Pulmonary vasculature: Pulmonary vascular congestion appears pronounced. Pleural spaces: There are worsening small bilateral pleural effusions. Upper abdomen: No abnormality seen. Osseous structures: No acute osseous abnormality. Additional findings: None. IMPRESSION: Worsening [id number] CHF
[2020-08-19 12:42] LABS: Actual Bicarbonate (HCO3a) 63.8 mEq/L (22-28); Analyzer IN Cardio OR; Base Excess (BEa) 29.3 mEq/L (-2.0 to +3.0); CO2 Tension 136.4 mmHg (35.0-45.0); Calcium, Ionized (arterial) 1.08 mmol/L (1.12-1.30); Hemoglobin (Hb) 13.4 g/dL (12.0-16.0); O2 Tension (PaO2), arterial 93.6 mmHg (> 70.0); Potassium - ABG Lab 3.51 mmol/L (3.70-5.30); pH, Arterial 7.29 (7.35-7.45)
[2020-08-19 12:43] LABS: Puncture Site RRA
[2020-08-19] MEDS ORDERED: Metolazone 5 MG TAB PO SCH (13:00)
[2020-08-19] MEDS: Atorvastatin Calcium 40 MG TAB PO SCH (19:47)
[2020-08-19] MEDS: Warfarin Sodium 2.5 MG TAB PO SCH (19:48)
[2020-08-19] MEDS ORDERED: Mirtazapine 15 MG TAB PO SCH (21:00)
[2020-08-20] MEDS: cefTRIAXone\\ROCEPHIN 1 GM in Sodium Chloride 0.9% 100 ML IVPB SCH (00:11)
--- NOTE | 2020-08-20 00:39 | CON ---
DATE OF CONSULTATION: 08/19/2020 INDICATION FOR CONSULTATION: A 75-year-old female, with chronic atrial fibrillation, lethargy, and lower extremity edema. HISTORY OF PRESENT ILLNESS: This is a very unfortunate 75-year-old female, whom I saw about four years ago in the office, did not have followup since that time, has chronic atrial fibrillation. She lives at home with one of her family members, her daughter and apparently had been doing very well, walking around, not having problems and then a different daughter came to pick her up to take her shopping, noticed that she was not ready and things were kind of out of order, then she realized the patient was somewhat lethargic, she became very weak, but she says that she did not have any shortness of breath nor chest pain, but was having some lower extremity edema. Apparently, she has been around some people, who have been sick, but she has not herself noticed any significant problems, except for slight runny nose and watery eyes, but otherwise has not had a fever as far as the family was aware of. Apparently, the oxygen levels were low. She was seen in the doctor's office and was advised to be admitted to the hospital. PAST MEDICAL HISTORY: Significant for chronic atrial fibrillation, type 2 diabetes, dyslipidemia, hypertension, valvular heart disease with some mitral stenosis, mitral annular calcification, also aortic valve sclerosis, but no severe aortic valve stenosis has been noted in the past. ALLERGIES: THERE ARE NO KNOWN DRUG ALLERGIES. MEDICATIONS: Prior to admission included; 1. Vitamin D3. 2. Furosemide 20 mg a day. 3. Aspirin 81 mg a day. 4. Lipitor 40 mg a day. 5. She has been on warfarin 2.5 mg for her atrial fibrillation alternating with 5 mg. 6. She is on CoQ10. 7. Coreg 3.125 mg twice a day. REVIEW OF SYSTEMS: Relatively unremarkable, except what is noted in the history of present illness. She has actually been doing quite well for her age, according to the family. PHYSICAL EXAMINATION: GENERAL: Reveals an elderly female. She has a BiPAP mask on at this time, but is awake and oriented. The daughter tells me earlier she was disoriented and lethargic when she was on the telemetry floor, was moved over to the [facility]. VITAL SIGNS: At this time, blood pressure is 145/99; heart rate is in the 80s and shows atrial fibrillation, 80s to 90s; O2 saturation 96%; respiratory rate is about 16; and she is afebrile. HEENT EXAMINATION: Shows the head to be normocephalic and atraumatic. She does have a BiPAP mask on and it is somewhat difficult to auscultate the neck vessels due to the BiPAP mask and the increased noise associated with the air flow. I do not feel or hear any carotid bruits. CHEST: I do not hear any significant rales, rhonchi, or wheezing. Breath sounds are somewhat decreased, but are present. CARDIOVASCULAR: She has an irregularly irregular rhythm. There are no gross murmurs noted. She does have a systolic murmur noted at the apex and also a slight systolic murmur noted over the aortic area. ABDOMEN: Obese with positive bowel sounds. No tenderness, organomegaly, or masses are noted. EXTREMITIES: Femoral pulses are present. Extremities show no clubbing or cyanosis. She does have some mild edema with some mild erythema of the lower extremities, the left being greater than the right. Pedal pulses are present. NEUROLOGIC: She appears to be intact. I do not elicit any gross focal motor deficits. LABORATORY DATA: The WBC is 9.2, hemoglobin 13.2, hematocrit is 42.3, and the platelet count is 168,000. Her sodium is 146, potassium is 3.9, BUN is 30 with a creatinine of 0.79, and blood sugar was 111. Her total CK was 286, which was elevated, but troponin I is indeterminate. She did have a troponin I of 0.082, which increased up to a maximum of 0.146 and it has since decreased back down to 0.133. Her BNP was 566. She did have an MB performed which showed an MB was 9.1, so it is unclear why her CK was 286. She has had no history of falls or muscle breakdown. It could be due to possible statin medications, if there are no other etiologies for an elevated CK. She was negative for COVID. Her ABGs showed a pH of 7.29, this is from today with a pCO2 of 136 and a PO2 of 93 with O2 saturation of 96.7. I see the elevated pCO2 may have been the etiology of her lethargy earlier today. DIAGNOSTIC STUDIES: Her EKG shows atrial fibrillation with a well-controlled ventricular response and no acute changes to indicate ischemia. Her chest x-ray showed evidence of [id number] congestive heart failure. IMPRESSION: 1. Acute respiratory failure due to hypoxia and hypercapnic with elevated pCO2. She has a BiPAP mask. This will need to be monitored by the cell coverer or the Primary Care Service. 2. History of chronic atrial fibrillation. The rate is under good control at this time. I would suggest she can continue on oral anticoagulation. 3. Congestive heart failure, uncertain of the etiology of her congestive heart failure. Her echocardiogram showed ejection fraction of 50% to 55%. She does have diastolic dysfunction, which is rather severe with a restrictive type filling pattern. The left atrium as well as the right atrium were significantly dilated, which is compatible again with diastolic dysfunction with restrictive type pattern indicating more severe diastolic dysfunction. She also has relatively moderate thickening of the mitral valve leaflets compatible with [id number] mitral valve stenosis as well as aortic valve sclerosis with some mild aortic valve regurgitation. The aortic valve did not appear to be significantly stenotic. The mitral valve stenosis may be also contributing to some of her congestive heart failure. She is not a very good candidate to undergo any type of obviously surgical procedures. Should she become more stable, we could consider a mitral valvuloplasty if indicated, but she would need to undergo cardiac catheterization for further evaluation prior to proceeding with such interventions. 4. Type 2 diabetes. This will be dealt with by the Primary Care Service. At this time, the blood sugar is under good control. 5. Hypertension. This is also under good control at this time. We will be more than happy to continue to follow the patient with you, but at this time I would agree with the present management. She should have some mild diuresis which is ongoing at this time. We will be careful not to over diurese the patient. It appears that most of her problems at this time may be pulmonary mediated. Job ID: [id number]
[2020-08-20 04:26] LABS: INR-International Normal Ratio 1.4; Prothrombin Time 17.8 sec (12.0-14.7)
[2020-08-20 04:30] LABS: #Eosinphils 0.1 thou/uL (0.0-0.7); #Lymphocytes 0.5 thou/uL (1.20-3.40); #Neutrophils 5.3 thou/uL (1.40-6.50); %Basophils 0.1 % (0.0-1.0); %Eosinophils 0.7 % (0.0-10.0); %Lymphocytes 7.6 % (21.0-51.0); %Monocytes 14.8 % (0.0-10.0); %Neutrophils 76.8 % (42.0-75.0); Hemoglobin 13.6 g/dL (12.0-16.0); Mean Corpuscular Hemoglobin 30.6 pg (27.0-31.0); Mean Corpuscular Volume 95.8 fL (78.0-98.0); Mean Platelet Volume 8.4 fL (7.4-10.4); Platelet Count 153 thou/uL (130-400); RBC Distribution Width 13.1 % (11.5-14.5); Red Blood Cell (RBC) Count 4.45 mill/uL (4.20-5.40); White Blood Cell (WBC) Count 6.8 thou/uL (4.8-10.8)
[2020-08-20 04:47] LABS: BUN (Urea Nitrogen) 24 mg/dL (9.8-20.1); Calc. Creatinine Clearance 78 mL/min (70-130); Calcium 8.9 mg/dL (7.8-10.44); Estimated GFR-MDRD 72; Glucose 86 mg/dL (83-110)
[2020-08-20 04:49] LABS: ALT (SGPT) 34 U/L (8-55); AST (SGOT) 32 U/L (5-34); Albumin 3.4 g/dL (3.4-4.8); Alkaline Phosphatase 69 U/L (40-110); Bilirubin, Direct 0.6 mg/dL (0.1-0.3); Bilirubin, Total 1.2 mg/dL (0.2-1.2); Protein, Total 6.6 g/dL (6.0-8.3)
[2020-08-20 04:56] LABS: Anion Gap 16 mmol/L (10-20); Chloride 82 mmol/L (98-107); Potassium 3.1 mmol/L (3.5-5.1); Sodium 143 mmol/L (136-145)
[2020-08-20 05:01] LABS: Carbon Dioxide 48 mmol/L (23-31)
--- NOTE | 2020-08-20 05:33 | PDOC.FM ---
- Subjective Subjective: Patient sleeping comfortably in bed on BiPap. I used the mammalogist to communicate with patient. Patient was able to tell me her name and where she is at. She also reported that she was feeling better and denies CP/SOB. Her daughter reported that she felt as if her mom's breathing had improved but was concerned because she was staying up during the night and reported seeing people who were not actually present at night. Discussed hospital delirium and hypercapnic status as likely cause. Encouraged frequent reorientation and opening the blinds at night. - Objective MAR Reviewed: Yes Vital Signs & Weight: Vital Signs (12 hours) Temp Pulse Resp BP Pulse Ox 08/20/20 03:51 97.0 F L 08/20/20 01:39 95 15 95 08/20/20 00:20 98.0 F 08/20/20 00:00 98.2 F 128/74 08/19/20 20:00 97.0 F L 98 08/19/20 18:36 95 24 H 96 Weight Weight 80.966 kg Most Recent Monitor Data Heart Rate from ECG 90 NIBP 143/95 NIBP BP-Mean 111 Respiration from ECG 16 SpO2 97 I&O: 08/18/20 08/19/20 08/20/20 06:59 06:59 06:59 Intake Total 260 650 Output Total 950 700 900 Balance -690 -50 -900 Result Diagrams: 08/20/20 03:59 08/20/20 03:59 Phys Exam - Physical Examination Constitutional: NAD Dry MMs, bipap in place Neck: supple, full ROM No obvious rales, poor inspiratory effort Cardiovascular: no significant murmur irregularly irregular Gastrointestinal: soft, positive bowel sounds markedly improved edema Neurological: non-focal Deviation from normal: AAOx2 Skin: no rash Dx/Plan - Plan Plan: Acute hypercapneic Respiratory Failure likely 2/2 to CHF exacerbation -s/p lasix in ED -COVID: negative -BNP 741 > 566 -CXR showed pulmonary edema, repeat xray on 08/19 - worsening mild to moderate CHF -Lasix 40 mg IV BID, s/p metolazone yesterday -Echo: dilated IVC, EF 50-55%, L atrium severely dilated, mod-sev enlarged R. atrium -cardiology (Dr. Morrissey) was consulted due to concern for worsening HF; recommended that we continue current plan, evaluate pulmonary causes, stop BB -ABG was ordered yesterday and revealed a PCO2 around 136, patient was urgently transferred to the IMCU and started on Bipap -Bicarb on CMP today was 48, urgent repeat ABG reveal improved but still elevated pCO2 of 73 and pH of 7.4 -will add acetozolamide today -will obtain CTA to r/o PE as patient is subtherapeutic on warfarin -strict I/O, daily weights Encephalopathy likely 2/2 to hospital delirium and hypercapnic state -mental status appears to be improving, patient is now answering questions -pCO2 is still elevated, but improving, will continue on BiPap -encouraged frequent reorientation by daughter and nursing staff, blinds should be up during the day, we will try to get patient to sleep at night and up during the day Poor appetite -started on mirtazapine yesterday -pt was unable to eat yesterday due to BiPap -patient is allowed to be off bipap for meals with NC to supplement during this time. HTN -patient on coreg outpt, per cardiology will hold BB -will start patient on lisinopril 5 mg daily and add hydralazine prn with SBP > 180 Indeterminate trops -trop 0.082 > 0.103 > 0.121 > 0.133 -EKG showed sinus with Afib -likely 2/2 to CHF UTI -UA showed leuks, bacteria, WBCs -sending for culture -rocephin x3 days to end on 08/21 Afib -currently rate controlled -on warfarin at home -INR subtherapeutic at 1.4, will increase to 5 mg today; Consider 5 mg on M, W, and F with 2.5 mg on other days -dosage recently adjusted in clinic due to supratherapeutic levels -continue home meds HLD -aware -restart home meds Hx of CVA -aware -continue home meds Dispo: pending further medical management Addendum - Attending - Attending Attestation Date/Time: 08/20/20 1211 I personally evaluated the patient and discussed the management with Dr. Tracy. I agree with the History, Examination, Assessment and Plan documented above with any addition or exceptions noted below. Improved today. continuing to diurese. Will use BiPAP PNR. Hopefully transition back to the floor tomorrow. Cardiology feels this is a primary pulmonary process although echo was read as fluid overload with signs of right heart strain. CTA to evaluate for PE. She is currently on warfarin for a-fib but has been subtherapeutic. Will discuss with family tomorrow the r/b/a of anticoagulation in the elderly woman who is a high risk for MBE.
[2020-08-20] MEDS: Furosemide 40 MG/4 ML VIAL SLOW IVP SCH ×2 (06:15→13:37)
[2020-08-20 06:16] LABS: Magnesium 1.9 mg/dL (1.6-2.6); Phosphorus 2.7 mg/dL (2.3-4.7)
[2020-08-20 06:35] LABS: Actual Bicarbonate (HCO3a) 53.7 mEq/L (22-28); Base Excess (BEa) 24.7 mEq/L (-2.0 to +3.0); Calcium, Ionized (arterial) 1.07 mmol/L (1.12-1.30); Carboxyhemoglobin (COHb) 1.2 gm% (0.0-3.0); O2 Tension (PaO2), arterial 74.5 mmHg (> 70.0); pH, Arterial 7.48 (7.35-7.45)
[2020-08-20 06:40] LABS: CO2 Tension 73.6 mmHg (35.0-45.0)
[2020-08-20 06:41] LABS: Puncture Site RRA
[2020-08-20] MEDS ORDERED: Potassium Chloride 20 MEQ in Premix Bag 1 BAG IVPB SCH (08:45)
[2020-08-20] MEDS: Cholecalciferol (Vitamin D3) 400 UNITS TAB PO SCH (09:58)
[2020-08-20] MEDS: Aspirin 81 mg Enteric Coated Tablet PO SCH (09:58)
[2020-08-20] MEDS: Ubidecarenone 50 MG CAP PO SCH ×3 (09:58→20:13)
[2020-08-20] MEDS ORDERED: Carvedilol 6.25 MG TAB PO SCH (10:45)
[2020-08-20] MEDS ORDERED: hydrALAZINE 10 MG TAB PO PRN (10:56)
[2020-08-20] MEDS ORDERED: Lisinopril 2.5 MG TAB PO SCH (11:00)
[2020-08-20] MEDS ORDERED: Magnesium 2 GM/50 ML 2 GM in Premix Bag 1 BAG IVPB SCH (12:00)
[2020-08-20] MEDS ORDERED: AcetaZOLAMIDE 250 MG TAB PO SCH (14:15)
[2020-08-20] MEDS ORDERED: Iopamidol-370 76% 500 ML 1 ML ONE (14:37)
--- NOTE | 2020-08-20 15:09 | CT ---
CT ANGIOGRAM CHEST WITH CONTRAST: 08/20/20 HISTORY: Dyspnea. COMPARISON: Radiograph prior day. FINDINGS: CT angiogram chest performed after the intravenous administration of contrast. 3D rendering provided . No proximal segmental pulmonary arterial filling defect. Pulmonary trunk mildly enlarged as well as t he right and left main pulmonary arteries. Reflux of contrast through the IVC and hepatic veins. Large second portion duodenum diverticulum. Prior cholecystectomy and reservoir effect of the common bile duct. Large layering pleural effusions. Mild pulmonary edema. No pneumothorax. The sternum and manubrium are intact. Diffuse idiopathic skeletal hyperostosis. IMPRESSION: Mild decompensated congestive heart failure. No pulmonary embolism. POS: AH
[2020-08-20] MEDS ORDERED: Carvedilol 3.125 MG TAB PO SCH (17:00)
[2020-08-20] MEDS ORDERED: Warfarin Sodium 5 MG TAB PO SCH (17:00)
[2020-08-20] MEDS: Warfarin Sodium 5 MG TAB PO SCH (17:09)
[2020-08-20] MEDS: Atorvastatin Calcium 40 MG TAB PO SCH (20:14)
--- NOTE | 2020-08-21 05:39 | PDOC.FM ---
- Subjective Subjective: Patient was sleeping comfortably in bed with bipap on. No acute events overnight. Her breakfast was in the room but she had not yet awoken to eat. At the request of daughter, mirtazipine was held yesterday. Patient's daughter was sleeping at bedside. She did not express any concerns this morning. - Objective MAR Reviewed: Yes Vital Signs & Weight: Vital Signs (12 hours) Temp Pulse Resp Pulse Ox 08/21/20 04:00 97.6 F 08/21/20 02:38 90 22 H 94 L 08/21/20 00:00 98.6 F 08/20/20 23:52 98.6 F 08/20/20 23:15 93 16 100 08/20/20 20:00 97.5 F L 97 08/20/20 19:25 97.5 F L Weight Weight 76.702 kg Most Recent Monitor Data Heart Rate from ECG 87 NIBP 110/74 NIBP BP-Mean 86 Respiration from ECG 22 SpO2 96 I&O: 08/19/20 08/20/20 08/21/20 06:59 06:59 06:59 Intake Total 809 525 3789 Output Total 700 1750 2600 Balance -50 -4489 -4730 Result Diagrams: 08/21/20 06:59 08/21/20 06:59 EKG Reviewed by me: Yes Phys Exam - Physical Examination Constitutional: NAD HEENT: moist MMs Neck: supple Difficult exam due to bipap machine, no rales or wheezing heard Cardiovascular: no significant murmur irregularly irregular Gastrointestinal: soft, non-tender, no distention, positive bowel sounds Musculoskeletal: no edema Neurological: non-focal Skin: no rash Dx/Plan - Plan Plan: Acute hypercapneic Respiratory Failure likely 2/2 to CHF exacerbation -s/p lasix in ED -COVID: negative -BNP 741 > 566 -CXR showed pulmonary edema, repeat xray on 08/19 - worsening mild to moderate CHF -Lasix 40 mg IV BID, s/p metolazone yesterday, will decrease to 40 mg IV daily a s patient's fluid status is improving -Echo: dilated IVC, EF 50-55%, L atrium severely dilated, mod-sev enlarged R. atrium -cardiology (Dr. Morrissey) was consulted due to concern for worsening HF; recomme nded that we continue current plan, evaluate pulmonary causes, stop BB -ABG on 08/19 revealed a PCO2 around 136, patient was urgently transferred to the [facility] and started on Bipap (08/19), urgent repeat ABG yesterday reveal improved but still elevated pCO2 of 73 and pH of 7.4, patient can likely adams sfer back to tele today -Bicarb was 48 > 44, likely contraction alkalosis -added acetazolimide -CTA: no PE -strict I/O, daily weights Hypokalemia -due to diuresis -will give 40 IV now with repeat BMP at 1300 -adding 40 PO BID Hypochloremia -likely 2/2 to contraction alkalosis -will monitor Anion gap -AG of 20 -likely 2/2 to diuresis, will obtain lactic acid Encephalopathy likely 2/2 to hospital delirium and hypercapnic state -mental status appears to be improving, patient is now answering questions -pCO2 is still elevated, but improving, will continue on BiPap -encouraged frequent reorientation by daughter and nursing staff, blinds should be up during the day, we will try to get patient to sleep at night and up during the day Poor appetite -originally started on mirtazapine, but held per request of daughter -pt ate ~50% of her dinner -patient is allowed to be off bipap for meals with NC to supplement during this time. HTN -patient on coreg outpt, per cardiology will hold BB -BP stable overnight, not currently on BP medication -hydralazine prn with SBP > 180 Indeterminate trops -trop 0.082 > 0.103 > 0.121 > 0.133 -EKG showed sinus with Afib -likely 2/2 to CHF UTI -UA showed leuks, bacteria, WBCs -sending for culture -rocephin x3 days (08/18-08/20) Afib -currently rate controlled, holding BB as above -on warfarin at home -INR subtherapeutic at 1.4, will increase to 5 mg today; Consider 5 mg on M, W, and F with 2.5 mg on other days -consider DC warfarin based on patient's age and risk of bleeding -dosage recently adjusted in clinic due to supratherapeutic levels HLD -aware -restart home meds Hx of CVA -aware -continue home meds Dispo: pending further medical management, likely transfer back to tele today Addendum - Attending - Attending Attestation Date/Time: 08/21/20 1917 I personally evaluated the patient and discussed the management with Dr. Tracy. I agree with the History, Examination, Assessment and Plan documented above with any addition or exceptions noted below. She has developed a contraction alkalosis with her diuresis. Decrease Lasix to qd. continue diamox. Repeat BMP and VBG this afternoon. Consider additional dose of diamox. Will monitor overnight in IMCU then consider transfer to floor tomorrow.
[2020-08-21] MEDS: Furosemide 40 MG/4 ML VIAL SLOW IVP SCH (06:39)
[2020-08-21 07:16] LABS: #Eosinphils 0.2 thou/uL (0.0-0.7); #Lymphocytes 0.7 thou/uL (1.20-3.40); %Basophils 0.3 % (0.0-1.0); %Eosinophils 2.5 % (0.0-10.0); %Lymphocytes 8.4 % (21.0-51.0); %Monocytes 13.1 % (0.0-10.0); %Neutrophils 75.8 % (42.0-75.0); Hemoglobin 15.6 g/dL (12.0-16.0); Mean Corpuscular HGB CONC 32.3 g/dL (32.0-36.0); Mean Corpuscular Volume 92.9 fL (78.0-98.0); Mean Platelet Volume 8.3 fL (7.4-10.4); Platelet Count 157 thou/uL (130-400); RBC Distribution Width 13.4 % (11.5-14.5); White Blood Cell (WBC) Count 7.9 thou/uL (4.8-10.8)
[2020-08-21 07:21] LABS: INR-International Normal Ratio 1.4; Prothrombin Time 17.9 sec (12.0-14.7)
[2020-08-21 07:29] LABS: BUN (Urea Nitrogen) 25 mg/dL (9.8-20.1); Calc. Creatinine Clearance 60 mL/min (70-130); Calcium 9.3 mg/dL (7.8-10.44); Estimated GFR-MDRD 58; Glucose 101 mg/dL (83-110)
[2020-08-21 07:38] LABS: Anion Gap 23 mmol/L (10-20); Sodium 138 mmol/L (136-145)
[2020-08-21 07:41] LABS: Carbon Dioxide 44 mmol/L (23-31); Chloride 74 mmol/L (98-107); Potassium 2.6 mmol/L (3.5-5.1)
[2020-08-21] MEDS ORDERED: Potassium Chloride 20 MEQ in Premix Bag 1 BAG IVPB SCH ×2 (08:00)
[2020-08-21] MEDS ORDERED: Potassium Chloride 40 MEQ in Premix Bag 1 BAG IVPB SCH (08:00)
[2020-08-21] MEDS ORDERED: Potassium Chloride 20 MEQ TAB PO SCH (08:00)
[2020-08-21] MEDS: AcetaZOLAMIDE 250 MG TAB PO SCH (08:36)
[2020-08-21] MEDS: Potassium Chloride 20 MEQ TAB PO SCH ×2 (08:36→17:46)
[2020-08-21] MEDS: Potassium Chloride 20 MEQ in Premix Bag 1 BAG IVPB SCH ×2 (08:37→11:08)
[2020-08-21] MEDS: Cholecalciferol (Vitamin D3) 400 UNITS TAB PO SCH (08:37)
[2020-08-21] MEDS: Aspirin 81 mg Enteric Coated Tablet PO SCH (08:37)
[2020-08-21] MEDS: Ubidecarenone 50 MG CAP PO SCH ×2 (08:37→20:47)
[2020-08-21] MEDS ORDERED: Lisinopril 5 MG TAB PO SCH (09:00)
[2020-08-21 11:20] LABS: Lactic Acid 1.3 mmol/L (0.5-2.2)
[2020-08-21 14:17] LABS: Base Excess (BEa) 20.4 mEq/L (-2.0 to +3.0); Calcium, Ionized (arterial) 1.08 mmol/L (1.12-1.30); Carboxyhemoglobin (COHb) 1.2 gm% (0.0-3.0); Hemoglobin (Hb) 16.2 g/dL (12.0-16.0); O2 Tension (PaO2), arterial 78.5 mmHg (> 70.0); Potassium - ABG Lab 3.57 mmol/L (3.70-5.30)
[2020-08-21 14:18] LABS: CO2 Tension 62.4 mmHg (35.0-45.0); Puncture Site RRA
[2020-08-21 15:26] LABS: BUN (Urea Nitrogen) 27 mg/dL (9.8-20.1); Calc. Creatinine Clearance 62 mL/min (70-130); Calcium 9.1 mg/dL (7.8-10.44); Estimated GFR-MDRD 60; Glucose 112 mg/dL (83-110)
[2020-08-21 15:35] LABS: Anion Gap 21 mmol/L (10-20); Carbon Dioxide 40 mmol/L (23-31); Chloride 78 mmol/L (98-107); Potassium 3.6 mmol/L (3.5-5.1); Sodium 135 mmol/L (136-145)
[2020-08-21] MEDS: Warfarin Sodium 5 MG TAB PO SCH (18:02)
[2020-08-21] MEDS: Atorvastatin Calcium 40 MG TAB PO SCH (20:48)
[2020-08-22 04:01] LABS: #Eosinphils 0.3 thou/uL (0.0-0.7); #Lymphocytes 0.9 thou/uL (1.20-3.40); #Monocytes 0.9 thou/uL (0.11-0.59); #Neutrophils 5.4 thou/uL (1.40-6.50); %Basophils 0.4 % (0.0-1.0); %Lymphocytes 12.3 % (21.0-51.0); %Monocytes 12.1 % (0.0-10.0); %Neutrophils 71.2 % (42.0-75.0); Hemoglobin 15.4 g/dL (12.0-16.0); Mean Corpuscular HGB CONC 31.9 g/dL (32.0-36.0); Mean Corpuscular Volume 90.8 fL (78.0-98.0); Mean Platelet Volume 8.6 fL (7.4-10.4); Platelet Count 166 thou/uL (130-400); RBC Distribution Width 13.3 % (11.5-14.5); Red Blood Cell (RBC) Count 5.32 mill/uL (4.20-5.40); White Blood Cell (WBC) Count 7.5 thou/uL (4.8-10.8)
[2020-08-22 04:02] LABS: INR-International Normal Ratio 1.6; Prothrombin Time 19.5 sec (12.0-14.7)
[2020-08-22 04:14] LABS: BUN (Urea Nitrogen) 25 mg/dL (9.8-20.1); Calc. Creatinine Clearance 58 mL/min (70-130); Calcium 9.1 mg/dL (7.8-10.44); Estimated GFR-MDRD 56; Glucose 102 mg/dL (83-110)
[2020-08-22 04:23] LABS: Anion Gap 20 mmol/L (10-20); Carbon Dioxide 38 mmol/L (23-31); Chloride 81 mmol/L (98-107); Potassium 3.1 mmol/L (3.5-5.1); Sodium 136 mmol/L (136-145)
[2020-08-22] MEDS ORDERED: Potassium Chloride 20 MEQ in Premix Bag 1 BAG IVPB SCH ×2 (06:00→06:45)
--- NOTE | 2020-08-22 06:00 | PDOC.FM ---
- Subjective Subjective: Patient is doing well this morning. No acute events overnight. Patient is AAOx3. Both her and her daughter report that she is doing much better. She denies CP, SOB. She is currently down 8kg after diuresis. She is only using bipap at night and NC during the day. - Objective MAR Reviewed: Yes Vital Signs & Weight: Vital Signs (12 hours) Temp Pulse Resp BP Pulse Ox 08/22/20 04:00 99.4 F 08/22/20 02:00 93 L 08/21/20 23:40 97.1 F L 08/21/20 20:00 79 18 121/71 98 08/21/20 19:42 97.1 F L 08/21/20 19:30 96 Weight Weight 74.888 kg Most Recent Monitor Data Heart Rate from ECG 85 NIBP 104/79 NIBP BP-Mean 87 Respiration from ECG 25 SpO2 98 I&O: 08/20/20 08/21/20 08/22/20 06:59 06:59 06:59 Intake Total 420 1440 1160 Output Total 1750 4150 1000 Balance -1330 -2710 160 Result Diagrams: 08/22/20 03:24 08/22/20 03:24 Phys Exam - Physical Examination Constitutional: NAD HEENT: moist MMs Neck: supple, full ROM Respiratory: no wheezing, no rales, no rhonchi, clear to auscultation bilateral Cardiovascular: RRR, no significant murmur Gastrointestinal: soft, non-tender, positive bowel sounds Musculoskeletal: no edema Psychiatric: normal affect, A&O x 3 Skin: no rash Dx/Plan - Plan Plan: Acute hypercapneic Respiratory Failure likely 2/2 to CHF exacerbation -s/p lasix in ED -COVID: negative -BNP 741 > 566 -CXR showed pulmonary edema, repeat xray on 08/19 - worsening mild to moderate CHF, will repeat xray tomorrow am -Lasix 40 mg IV BID, s/p metolazone yesterday, will decrease to 40 mg IV daily as patient's fluid status is improving -Echo: dilated IVC, EF 50-55%, L atrium severely dilated, mod-sev enlarged R. atrium -cardiology (Dr. Morrissey) was consulted due to concern for worsening HF; recommended that we continue current plan, evaluate pulmonary causes, stop BB -ABG on 08/19 revealed a PCO2 around 136, patient was urgently transferred to the IM and started on Bipap (08/19), urgent repeat ABG yesterday reveal improved but still elevated pCO2 of 73 and pH of 7.4, only requiring bipap at night, stable for transfer to tele with continued bipap at night -Bicarb was 48 > 44 > 40 > 38, likely contraction alkalosis, improving -added acetazolimide -CTA: no PE -strict I/O, daily weights Hypokalemia -due to diuresis -gave 20 meq IV this am, will continue to monitor -adding 40 PO BID Hypochloremia, improving -74>78>81 -likely 2/2 to contraction alkalosis -will monitor Anion gap, improving -AG of 17 -likely 2/2 to diuresis Encephalopathy likely 2/2 to hospital delirium and hypercapnic state -mental status appears to be improving, AAOx3 -will continue bipap at night and NC during the day -encouraged frequent reorientation by daughter and nursing staff, blinds should be up during the day, we will try to get patient to sleep at night and up during the day Poor appetite -originally started on mirtazapine, but held per request of daughter -will continue to monitor and encourage PO intake HTN -patient on coreg outpt, per cardiology will hold BB -BP stable overnight, not currently on BP medication -hydralazine prn with SBP > 180 Indeterminate trops -trop 0.082 > 0.103 > 0.121 > 0.133 -EKG showed sinus with Afib -likely 2/2 to CHF UTI -UA showed leuks, bacteria, WBCs -sending for culture -razia x3 days (08/18-08/20) Afib -currently rate controlled, holding BB as above -on warfarin at home -INR subtherapeutic at 1.4 > 1.6, consider possibly increasing dosage -consider DC warfarin based on patient's age and risk of bleeding -dosage recently adjusted in clinic due to supratherapeutic levels HLD -aware -restart home meds Hx of CVA -aware -continue home meds Dispo: will transfer to tele for further monitoring and medical management Addendum - Attending - Attending Attestation Date/Time: 08/22/20 1611 I personally evaluated the patient and discussed the management with Dr. Tracy. I agree with the History, Examination, Assessment and Plan documented above with any addition or exceptions noted below. Patient was doing much better this morning. She is wearing bipap at night. Continuing diuresis. Pt may be able to move to telemetry soon.
[2020-08-22] MEDS: AcetaZOLAMIDE 250 MG TAB PO SCH (08:23)
[2020-08-22] MEDS: Ubidecarenone 50 MG CAP PO SCH ×2 (08:23→20:18)
[2020-08-22] MEDS: Furosemide 40 MG/4 ML VIAL SLOW IVP SCH (08:23)
[2020-08-22] MEDS: Cholecalciferol (Vitamin D3) 400 UNITS TAB PO SCH (08:23)
[2020-08-22] MEDS: Aspirin 81 mg Enteric Coated Tablet PO SCH (08:23)
[2020-08-22] MEDS: Potassium Chloride 20 MEQ TAB PO SCH ×2 (08:24→17:30)
--- NOTE | 2020-08-22 10:34 | PRG ---
DATE OF SERVICE: 08/22/2020 SUBJECTIVE: Ms. Lemon is intermittently confused and disoriented. No chest pain. OBJECTIVE: VITAL SIGNS: Blood pressure 116/75; pulse in the 70s, it is irregular. LUNGS: Clear. CARDIAC: Irregularly irregular. ABDOMEN: Soft, nontender. ASSESSMENT: 1. Congestive heart failure, diastolic appears stable. 2. Confusion and disorientation, probably situational. 3. Mitral stenosis. Dr. Morrissey thinks it is moderate to severe. PLAN: 1. Continue to control the heart rate. 2. Continue diuretics. No other changes at this time. Job ID: [id number]
[2020-08-22] MEDS: Warfarin Sodium 2.5 MG TAB PO SCH (17:31)
--- NOTE | 2020-08-22 17:35 | EKG ---
Test Reason : Blood Pressure : / mmHG Vent. Rate : 088 BPM Atrial Rate : 073 BPM P-R Int : 000 ms QRS Dur : 066 ms QT Int : 352 ms P-R-T Axes : 000 068 084 degrees QTc Int : 425 ms Atrial fibrillation Abnormal ECG Confirmed by ROMANA STOKES ([id number]), medical editor VAUGHN MARINO ([id number]) on 08/22/2020 5:35:20 PM Referred By: Confirmed By:ROMANA Bermeo
[2020-08-22] MEDS: Atorvastatin Calcium 40 MG TAB PO SCH (20:18)
[2020-08-22] MEDS ORDERED: Melatonin 3 MG TAB PO PRN (23:41)
[2020-08-23] MEDS ORDERED: diphenhydrAMINE 25 MG CAP PO PRN (02:34)
[2020-08-23 04:45] LABS: #Eosinphils 0.2 thou/uL (0.0-0.7); #Lymphocytes 0.7 thou/uL (1.20-3.40); #Neutrophils 6.1 thou/uL (1.40-6.50); %Basophils 0.4 % (0.0-1.0); %Eosinophils 2.9 % (0.0-10.0); %Lymphocytes 8.3 % (21.0-51.0); %Monocytes 12.3 % (0.0-10.0); %Neutrophils 76.1 % (42.0-75.0); Hemoglobin 15.3 g/dL (12.0-16.0); Mean Corpuscular HGB CONC 32.1 g/dL (32.0-36.0); Mean Corpuscular Hemoglobin 28.9 pg (27.0-31.0); Mean Corpuscular Volume 90.2 fL (78.0-98.0); Mean Platelet Volume 8.8 fL (7.4-10.4); Platelet Count 158 thou/uL (130-400); RBC Distribution Width 13.1 % (11.5-14.5); Red Blood Cell (RBC) Count 5.27 mill/uL (4.20-5.40)
[2020-08-23 04:50] LABS: INR-International Normal Ratio 1.8; Prothrombin Time 21.2 sec (12.0-14.7)
[2020-08-23 05:06] LABS: Anion Gap 17 mmol/L (10-20); BUN (Urea Nitrogen) 29 mg/dL (9.8-20.1); Calc. Creatinine Clearance 68 mL/min (70-130); Calcium 8.8 mg/dL (7.8-10.44); Carbon Dioxide 32 mmol/L (23-31); Chloride 88 mmol/L (98-107); Estimated GFR-MDRD 67; Glucose 109 mg/dL (83-110); Potassium 3.6 mmol/L (3.5-5.1); Sodium 133 mmol/L (136-145)
--- NOTE | 2020-08-23 05:11 | PDOC.FM ---
- Subjective Subjective: According to nursing, patient was delirious all night and was slightly combative with nursing staff. She refused to wear her CPAP or NC and was not wearing either when I entered the room this morning. She was sleeping when I visited this morning. She was snoring loudly and had an apneic spell while I was in the room, this is concerning for suspected sleep apnea. - Objective MAR Reviewed: Yes Vital Signs & Weight: Vital Signs (12 hours) Temp Pulse Resp BP Pulse Ox 08/23/20 02:30 97.7 F 95 14 112/76 98 08/23/20 00:20 97.4 F L 08/23/20 00:00 97.4 F L 91 20 119/88 98 08/22/20 20:00 96 08/22/20 19:16 98.0 F Weight Weight 74.435 kg Most Recent Monitor Data Heart Rate from ECG 91 NIBP 105/81 NIBP BP-Mean 89 Respiration from ECG 28 SpO2 95 I&O: 08/21/20 08/22/20 08/23/20 06:59 06:59 06:59 Intake Total 1440 1370 1070 Output Total 4150 1500 1000 Balance -2710 -130 70 Result Diagrams: 08/23/20 04:29 08/23/20 04:29 Phys Exam - Physical Examination Constitutional: NAD HEENT: moist MMs Neck: supple Respiratory: no wheezing, no rales, clear to auscultation bilateral Cardiovascular: no significant murmur irregularly, irregular Gastrointestinal: soft, non-tender Musculoskeletal: no edema Skin: normal turgor Dx/Plan - Plan Plan: Acute hypercapneic Respiratory Failure likely 2/2 to CHF exacerbation -s/p lasix in ED -COVID: negative -BNP 741 > 566 -CXR showed pulmonary edema, repeat xray on 08/19 - worsening mild to moderate CHF -repeat xray on 08/23: marked improvement in pulmonary edema -Lasix 40 mg IV BID, s/p metolazone, now on 40 mg IV daily as patient's fluid status is improving -Echo: dilated IVC, EF 50-55%, L atrium severely dilated, mod-sev enlarged R. atrium -cardiology (Dr. Morrissey) was consulted due to concern for worsening HF; recommended that we continue current plan, evaluate pulmonary causes, stop BB -ABG on 08/19 revealed a PCO2 around 136, patient was urgently transferred to the [facility] and started on Bipap (08/19), urgent repeat ABG reveal improved but still elevated pCO2 of 73 and pH of 7.4 -Bicarb was 48 > 44 > 40 > 38 > 32, likely contraction alkalosis, improving -pt should wear bipap at night due to concern for undiagnosed sleep apnea -on acetazolimide, will likely DC tomorrow pending lab results -CTA: no PE -strict I/O, daily weights Hypokalemia, resolved -due to diuresis -now on 40 PO BID -will continue to monitor Hypochloremia, improving -74>78>81>88 -likely 2/2 to contraction alkalosis -will monitor Anion gap, improving -AG of 17 > 13 -likely 2/2 to diuresis Encephalopathy likely 2/2 to hospital delirium and hypercapnic state -owning at night, encouraged frequent reorientation by daughter and nursing staff, blinds should be up during the day -we will try to get patient to sleep at night and up during the day -will talk to family about resuming mirtazipine to help with sleep and appetite -will continue bipap at night and NC during the day Poor appetite -originally started on mirtazapine, but held per request of daughter; see above regarding restarting medication -will continue to monitor and encourage PO intake HTN -patient on coreg outpt, per cardiology will hold BB -BP stable overnight, not currently on BP medication -hydralazine prn with SBP > 180 Likely undiagnosed sleep apnea -will need outpatient f/u -continue bipap HS while in hospital -blood pressure has improved since starting Indeterminate trops -trop 0.082 > 0.103 > 0.121 > 0.133 -EKG showed sinus with Afib -likely 2/2 to CHF UTI -UA showed leuks, bacteria, WBCs -sending for culture -rocephin x3 days (08/18-08/20) Afib -currently rate controlled, holding BB as above -on warfarin at home -INR subtherapeutic at 1.4 > 1.6 > 1.8, will continue to monitor and make adjustments as needed, consider possibly increasing dosage -consider DC warfarin based on patient's age and risk of bleeding -dosage recently adjusted in clinic due to supratherapeutic levels HLD -aware -restart home meds Hx of CVA -aware -continue home meds Dispo: will continue to monitor on tele, will encourage pt to work with PT/OT, frequent reorientation needed Addendum - Attending - Attending Attestation Date/Time: 08/23/20 1340 I personally evaluated the patient and discussed the management with Dr. Tracy. I agree with the History, Examination, Assessment and Plan documented above with any addition or exceptions noted below. The patient had delirium overnight. Encourage to wear cpap at night. Pt is having good diuresis. Labs are stable.
--- NOTE | 2020-08-23 07:45 | RAD ---
Chest one view HISTORY: Dyspnea. COMPARISON: 08/19/2020. FINDINGS: Cardiac silhouette is magnified by projection. Pulmonary vasculature upper limits of normal . Minimal residual patchy bibasilar infiltrates. No lobar consolidation or evidence of pneumothorax IMPRESSION : Significant improvement. Mild residual pulmonary vascular prominence. No florid edema.
[2020-08-23] MEDS: Ubidecarenone 50 MG CAP PO SCH ×2 (09:33→22:01)
[2020-08-23] MEDS: Furosemide 40 MG/4 ML VIAL SLOW IVP SCH (09:33)
[2020-08-23] MEDS: Cholecalciferol (Vitamin D3) 400 UNITS TAB PO SCH (09:33)
[2020-08-23] MEDS: Aspirin 81 mg Enteric Coated Tablet PO SCH (09:34)
[2020-08-23] MEDS: Potassium Chloride 20 MEQ TAB PO SCH ×2 (09:34→16:25)
[2020-08-23] MEDS: AcetaZOLAMIDE 250 MG TAB PO SCH (09:34)
--- NOTE | 2020-08-23 14:18 | PRG ---
DATE OF SERVICE: 08/23/2020 SUBJECTIVE: Ms. Lemon states she is feeling well. No complaints. Breathing well. No shortness of breath. No chest pain. OBJECTIVE: VITAL SIGNS: Blood pressure 122/84, pulse 80. HEART: No new murmur, rub or gallop. ABDOMEN: Soft, nontender. EXTREMITIES: Warm, dry. No clubbing. No cyanosis. No edema. ASSESSMENT: 1. Congestive heart failure, diastolic, stable. 2. Confusion, disorientation, improved. PLAN: Continue control of heart rate and diuretics. Suspect the patient will be ready to go home soon. To follow up with Dr. Morrissey as an outpatient. Job ID: [id number]
[2020-08-23] MEDS: Warfarin Sodium 2.5 MG TAB PO SCH (16:25)
[2020-08-23] MEDS: Atorvastatin Calcium 40 MG TAB PO SCH (22:01)
[2020-08-23] MEDS: Mirtazapine 15 MG Soltab PO SCH (22:01)
[2020-08-24 04:49] LABS: #Eosinphils 0.3 thou/uL (0.0-0.7); #Monocytes 0.8 thou/uL (0.11-0.59); #Neutrophils 5.3 thou/uL (1.40-6.50); %Basophils 0.7 % (0.0-1.0); %Eosinophils 4.1 % (0.0-10.0); %Lymphocytes 13.6 % (21.0-51.0); %Monocytes 10.5 % (0.0-10.0); %Neutrophils 71.1 % (42.0-75.0); Hemoglobin 14.7 g/dL (12.0-16.0); INR-International Normal Ratio 1.7; Mean Corpuscular HGB CONC 31.6 g/dL (32.0-36.0); Mean Corpuscular Hemoglobin 28.3 pg (27.0-31.0); Mean Corpuscular Volume 89.6 fL (78.0-98.0); Mean Platelet Volume 10.3 fL (7.4-10.4); Platelet Count 179 thou/uL (130-400); Prothrombin Time 20.2 sec (12.0-14.7); RBC Distribution Width 13.6 % (11.5-14.5); White Blood Cell (WBC) Count 7.4 thou/uL (4.8-10.8)
[2020-08-24 05:15] LABS: Anion Gap 14 mmol/L (10-20); BUN (Urea Nitrogen) 31 mg/dL (9.8-20.1); Calc. Creatinine Clearance 63 mL/min (70-130); Calcium 8.3 mg/dL (7.8-10.44); Carbon Dioxide 33 mmol/L (23-31); Chloride 91 mmol/L (98-107); Estimated GFR-MDRD 62; Glucose 96 mg/dL (83-110); Potassium 3.7 mmol/L (3.5-5.1); Sodium 134 mmol/L (136-145)
--- NOTE | 2020-08-24 05:47 | PDOC.FM ---
- Subjective Subjective: Patient was sleeping comfortably in bed. She was wearing her cpap overnight. Per patient's daughter and nurse, patient did much better overnight and slept through the night with the mirtazipine. - Objective MAR Reviewed: Yes Vital Signs & Weight: Vital Signs (12 hours) Temp Pulse Resp BP Pulse Ox 08/24/20 05:33 98 08/24/20 03:52 96.5 F L 74 20 139/75 99 08/23/20 20:00 98.8 F 82 16 115/65 93 L Weight Weight 73.936 kg Most Recent Monitor Data Heart Rate from ECG 91 NIBP 105/81 NIBP BP-Mean 89 Respiration from ECG 28 SpO2 95 I&O: 08/22/20 08/23/20 08/24/20 06:59 06:59 06:59 Intake Total 1370 1070 720 Output Total 1500 1000 675 Balance -130 70 45 Result Diagrams: 08/24/20 04:26 08/24/20 04:26 EKG Reviewed by me: Yes (Afib 80s-90s) Phys Exam - Physical Examination Constitutional: NAD HEENT: moist MMs Neck: supple Respiratory: no wheezing, no rales, clear to auscultation bilateral irregularly, irregular Gastrointestinal: soft, non-tender Musculoskeletal: no edema Neurological: non-focal Psychiatric: normal affect Skin: no rash Dx/Plan - Plan Plan: Acute hypercapneic Respiratory Failure likely 2/2 to CHF exacerbation -s/p lasix in ED -COVID: negative -BNP 741 > 566 -CXR showed pulmonary edema, repeat xray on 08/19 - worsening mild to moderate CHF -repeat xray on 08/23: marked improvement in pulmonary edema -Lasix 40 mg IV BID, s/p metolazone--> 40 mg IV daily --> will switch to 20 mg PO lasix BID -Echo: dilated IVC, EF 50-55%, L atrium severely dilated, mod-sev enlarged R. atrium -cardiology (Dr. Morrissey) was consulted due to concern for worsening HF; recommended that we continue current plan, evaluate pulmonary causes, stop BB; will touch base with cardiology regarding restarting BB -ABG on 08/19 revealed a PCO2 around 136, patient was urgently transferred to the [facility] and started on Bipap (08/19), urgent repeat ABG reveal improved but still elevated pCO2 of 73 and pH of 7.4, now on tele/stroke unit with CPAP at night only, no O2 requirement during the day -Bicarb was 48 > 44 > 40 > 38 > 32 > 31, likely contraction alkalosis, improving -pt should wear cpap at night due to concern for undiagnosed sleep apnea -on acetazolimide -CTA: no PE -strict I/O, daily weights Hypokalemia, resolved -due to diuresis -40 PO BID --> 40 daily now that IV lasix dc'd -will continue to monitor Hypochloremia, improving -74>78>81>88>91 -likely 2/2 to contraction alkalosis -will monitor Anion gap, resolved -AG of 17 > 13 > 10 -likely 2/2 to diuresis Encephalopathy likely 2/2 to hospital delirium and hypercapnic state -owning at night, encouraged frequent reorientation by daughter and nursing staff, blinds should be up during the day -we will try to get patient to sleep at night and up during the day -family agreed to starting mirtazapine -will continue cpap at night Poor appetite -on mirtazapine -will continue to monitor and encourage PO intake HTN -patient on coreg outpt, per cardiology will hold BB, will discuss restarting -BP stable overnight, not currently on BP medication -hydralazine prn with SBP > 180 Likely undiagnosed sleep apnea -will need outpatient f/u, CM consulted for CPAP -blood pressure has improved since starting Indeterminate trops -trop 0.082 > 0.103 > 0.121 > 0.133 -EKG showed sinus with Afib -likely 2/2 to CHF UTI -UA showed leuks, bacteria, WBCs -sending for culture -razia x3 days (08/18-08/20) Afib -currently rate controlled, holding BB as above, will discuss restarting -on warfarin at home -INR subtherapeutic at 1.4 > 1.6 > 1.8 > 1.6 -will discuss discontinuing this medication due to age with family -if family decides to continue, will have pharmacy adjust dosage HLD -aware -restart home meds Hx of CVA -aware -continue home meds Dispo: will continue to monitor on tele/stroke; transitioning to oral medication in preparation for future discharge; continue to work with PT while inpatient Addendum - Attending - Attending Attestation Date/Time: 08/24/201921 I personally evaluated the patient and discussed the management with Dr. Tracy. I agree with the History, Examination, Assessment and Plan documented above with any addition or exceptions noted below. Patient was able to rest better overnight. Will work with therapy to help with strength.
[2020-08-24] MEDS: Aspirin 81 mg Enteric Coated Tablet PO SCH (08:10)
[2020-08-24] MEDS: Cholecalciferol (Vitamin D3) 400 UNITS TAB PO SCH (08:16)
[2020-08-24] MEDS: Ubidecarenone 50 MG CAP PO SCH ×2 (08:17→20:39)
[2020-08-24] MEDS: AcetaZOLAMIDE 250 MG TAB PO SCH (08:19)
[2020-08-24] MEDS: Potassium Chloride 20 MEQ TAB PO SCH (08:23)
[2020-08-24] MEDS: Furosemide 40 MG/4 ML VIAL SLOW IVP SCH (08:31)
[2020-08-24] MEDS: Warfarin Sodium 5 MG TAB PO SCH (17:20)
[2020-08-24] MEDS: Carvedilol 3.125 MG TAB PO SCH (17:22)
[2020-08-24] MEDS: Mirtazapine 15 MG Soltab PO SCH (20:39)
[2020-08-24] MEDS: Atorvastatin Calcium 40 MG TAB PO SCH (20:39)
[2020-08-25 05:13] LABS: INR-International Normal Ratio 1.8; Prothrombin Time 21.3 sec (12.0-14.7)
[2020-08-25 05:19] LABS: #Basophils 0.1 thou/uL (0.0-0.2); #Eosinphils 0.4 thou/uL (0.0-0.7); #Monocytes 0.9 thou/uL (0.11-0.59); #Neutrophils 5.6 thou/uL (1.40-6.50); %Eosinophils 4.5 % (0.0-10.0); %Lymphocytes 12.9 % (21.0-51.0); %Monocytes 11.2 % (0.0-10.0); %Neutrophils 70.3 % (42.0-75.0); Hemoglobin 15.1 g/dL (12.0-16.0); Mean Corpuscular HGB CONC 33.2 g/dL (32.0-36.0); Mean Corpuscular Hemoglobin 30.1 pg (27.0-31.0); Mean Corpuscular Volume 90.6 fL (78.0-98.0); Mean Platelet Volume 11.2 fL (7.4-10.4); Platelet Count 190 thou/uL (130-400); RBC Distribution Width 13.7 % (11.5-14.5); Red Blood Cell (RBC) Count 5.03 mill/uL (4.20-5.40)
--- NOTE | 2020-08-25 06:00 | PDOC.FM ---
- Subjective Subjective: No acute events overnight. Per daughter, mirtazapine is helping the patient sleep. She is also eating more. Yesterday I had conversation regarding continuing warfarin. Daughter had not yet decided and want to talk with other sisters. Daughter reports that she has a cpap machine at home that is not being used by anyone for her mother. - Objective MAR Reviewed: Yes Vital Signs & Weight: Vital Signs (12 hours) Temp Pulse Resp BP Pulse Ox 08/25/20 04:34 98.1 F 72 16 100/76 99 08/24/20 23:29 115/65 08/24/20 20:17 97.8 F 73 17 105/72 97 Weight Weight 73.164 kg Most Recent Monitor Data Heart Rate from ECG 91 NIBP 105/81 NIBP BP-Mean 89 Respiration from ECG 28 SpO2 95 I&O: 08/23/20 08/24/20 08/25/20 06:59 06:59 06:59 Intake Total 3765 200 6805 Output Total 1000 1125 Balance 70 -405 1080 Result Diagrams: 08/25/20 10:26 08/25/20 10:26 EKG Reviewed by me: Yes (Afib 70s) Phys Exam - Physical Examination Constitutional: NAD Cpap on Respiratory: no wheezing, no rales, clear to auscultation bilateral Cardiovascular: no significant murmur irregularly, irregular Gastrointestinal: soft, non-tender, positive bowel sounds Musculoskeletal: no edema Neurological: moves all 4 limbs Skin: no rash Dx/Plan - Plan Plan: Acute hypercapneic Respiratory Failure likely 2/2 to CHF exacerbation -s/p lasix in ED -COVID: negative -BNP 741 > 566 -CXR showed pulmonary edema, repeat xray on 08/19 - worsening mild to moderate CHF -repeat xray on 08/23: marked improvement in pulmonary edema -Lasix 40 mg IV BID, s/p metolazone--> 40 mg IV daily --> 20 mg PO lasix BID -Echo: dilated IVC, EF 50-55%, L atrium severely dilated, mod-sev enlarged R. atrium -cardiology (Dr. Morrissey) was consulted due to concern for worsening HF; recommended that we continue current plan, evaluate pulmonary causes, stop BB during acute exacerbation; Home BB restarted at half home dose (1.5625 mg BID) evening of 11/23 at recommendation of cards -ABG on 08/19 revealed a PCO2 around 136, patient was urgently transferred to the IMCU and started on Bipap (08/19), urgent repeat ABG reveal improved but still elevated pCO2 of 73 and pH of 7.4, now on tele/stroke unit with CPAP at night only, no O2 requirement during the day -Bicarb was 48 > 44 > 40 > 38 > 32 > 31 > 36 , likely contraction alkalosis, improving -pt should wear cpap at night due to concern for undiagnosed sleep apnea -on acetazolimide -CTA: no PE -strict I/O, daily weights Hypokalemia, resolved -due to diuresis -40 PO BID --> 40 daily now that IV lasix dc'd -will continue to monitor Hypochloremia, improving -74>78>81>88>91>92 -likely 2/2 to contraction alkalosis -will monitor Anion gap, resolved -AG of 17 > 13 > 10 -likely 2/2 to diuresis Encephalopathy likely 2/2 to hospital delirium and hypercapnic state, improving -sundowning at night, encouraged frequent reorientation by daughter and nursing staff, blinds should be up during the day -we will try to get patient to sleep at night and up during the day -family agreed to starting mirtazapine -will continue cpap at night Poor appetite -on mirtazapine -will continue to monitor and encourage PO intake HTN -patient on coreg outpt, see above for new dosing -hydralazine prn with SBP > 180 Likely undiagnosed sleep apnea -will need outpatient f/u -Per family, unused cpap machine available at home -blood pressure has improved since starting Indeterminate trops -trop 0.082 > 0.103 > 0.121 > 0.133 -EKG showed sinus with Afib -likely 2/2 to CHF UTI -UA showed leuks, bacteria, WBCs -sending for culture -rocephin x3 days (08/18-08/20) Afib -currently rate controlled, see above for new BB dosage -on warfarin at home -INR subtherapeutic at 1.4 > 1.6 > 1.8 > 1.6 > -multiple discussions with family regarding continuing medication, not yet decided -if family decides to continue, will have pharmacy adjust dosage HLD -aware -restart home meds Hx of CVA -aware -continue home meds Dispo: patient is now on oral medication in preparation for DC, continue to work with PT while hospitalized, CM is working on aileen placement Addendum - Attending - Attending Attestation Date/Time: 08/25/20 0830 I personally evaluated the patient and discussed the management with Dr. Tracy. I agree with the History, Examination, Assessment and Plan documented above with any addition or exceptions noted below. Patient was resting with cpap in place. Pt's daughter stated she stood and marched in place with therapy yesterday. She slept better overnight.
[2020-08-25 07:22] VITALS: TEMP 97
[2020-08-25 07:26] LABS: Calcium 8.6 mg/dL (7.8-10.44); Chloride 92 mmol/L (98-107); Potassium 3.2 mmol/L (3.5-5.1); Sodium 137 mmol/L (136-145)
[2020-08-25 07:27] LABS: Glucose 101 mg/dL (83-110)
[2020-08-25 07:29] LABS: Anion Gap 12 mmol/L (10-20); Carbon Dioxide 36 mmol/L (23-31)
[2020-08-25 07:30] LABS: Calc. Creatinine Clearance 50 mL/min (70-130); Estimated GFR-MDRD 48
[2020-08-25 07:31] LABS: BUN (Urea Nitrogen) 31 mg/dL (9.8-20.1)
[2020-08-25] MEDS ORDERED: Potassium Chloride 20 MEQ TAB PO SCH (08:00)
[2020-08-25] MEDS ORDERED: Furosemide 20 MG TAB PO SCH (09:00)
[2020-08-25] MEDS: AcetaZOLAMIDE 250 MG TAB PO SCH (09:13)
[2020-08-25] MEDS: Cholecalciferol (Vitamin D3) 400 UNITS TAB PO SCH (09:13)
[2020-08-25] MEDS: Ubidecarenone 50 MG CAP PO SCH (09:13)
[2020-08-25] MEDS: Aspirin 81 mg Enteric Coated Tablet PO SCH (09:13)
[2020-08-25] MEDS: Carvedilol 3.125 MG TAB PO SCH (09:13)
[2020-08-25 10:46] LABS: Hemoglobin 16.5 g/dL (12.0-16.0); Mean Corpuscular HGB CONC 32.3 g/dL (32.0-36.0); Mean Corpuscular Hemoglobin 29.6 pg (27.0-31.0); Mean Corpuscular Volume 91.8 fL (78.0-98.0); Mean Platelet Volume 10.5 fL (7.4-10.4); Platelet Count 183 thou/uL (130-400); RBC Distribution Width 13.6 % (11.5-14.5); Red Blood Cell (RBC) Count 5.57 mill/uL (4.20-5.40); White Blood Cell (WBC) Count 8.8 thou/uL (4.8-10.8)
--- NOTE | 2020-08-25 10:46 | PDOC.EVN ---
Event Note - Event Note Event Note: Marco Antonio keene called around 1030 for acute change in mental status and unresponsiveness. According to reports, patient was about to begin working with PT when she slumped over in the bed. Both the daughter and nursing staff could not get the patient to respond and a code green was initiated. Upon arrival to patient's room, she was in bed with her eyes closed and not responding to verbal stimuli. She was noted to have a left sided facial droop and shallow breathing. The patient did respond to painful stimuli. Accu-chek showed glucose ~150. CBC, CMP, and PT/INR were obtained. A Code Stroke was called and the patient was sent to the CT scanner. Patient was initially hypotensive on arrival, but just prior to be transported to the scanner her systolic blood pressure was in the 180s.
[2020-08-25 10:54] LABS: INR-International Normal Ratio 1.7; Prothrombin Time 20.7 sec (12.0-14.7)
[2020-08-25 11:06] LABS: ALT (SGPT) 29 U/L (8-55); AST (SGOT) 50 U/L (5-34); Albumin 3.6 g/dL (3.4-4.8); Alkaline Phosphatase 76 U/L (40-110); Anion Gap 14 mmol/L (10-20); BUN (Urea Nitrogen) 30 mg/dL (9.8-20.1); Bilirubin, Total 1.4 mg/dL (0.2-1.2); Calc. Creatinine Clearance 59 mL/min (70-130); Calcium 8.7 mg/dL (7.8-10.44); Carbon Dioxide 31 mmol/L (23-31); Chloride 93 mmol/L (98-107); Estimated GFR-MDRD 58; Globulin 3.6 g/dL (2.4-3.5); Glucose 153 mg/dL (83-110); Potassium 4.1 mmol/L (3.5-5.1); Protein, Total 7.2 g/dL (6.0-8.3); Sodium 134 mmol/L (136-145)
[2020-08-25 11:13] LABS: #Basophils 0.1 thou/uL (0.0-0.2); #Eosinphils 0.3 thou/uL (0.0-0.7); #Lymphocytes 0.9 thou/uL (1.20-3.40); #Monocytes 0.7 thou/uL (0.11-0.59); #Neutrophils 6.8 thou/uL (1.40-6.50); %Eosinophils 3.8 % (0.0-10.0); %Neutrophils 77.3 % (42.0-75.0); Platelet Morphology Comment Appears Adequate; RBC Morphology Normal
--- NOTE | 2020-08-25 11:24 | CT ---
CT BRAIN WITHOUT CONTRAST: Date: 08/25/2020 HISTORY: Level I stroke. Altered mental status. Right facial droop. COMPARISON: 11/15/2019. FINDINGS: Encephalomalacia from old right lateral frontal lobe infarction again seen. The ventricular size is a ppropriate and the basilar cisterns are patent. No evidence of acute infarct, hemorrhage, midline shift, or abnormal extra-axial fluid collections ar e seen. The bony calvarium is intact. The visualized paranasal sinuses and mastoid air cells are well aerated. IMPRESSION: No CT evidence of acute intracranial process. Discussed over the phone with ER physician, Dr. Arshad, at 1051 hours. CODE CR. POS: OFF
[2020-08-25] MEDS ORDERED: Iopamidol 370 76% 100 ML VIAL ONE (12:58)
[2020-08-25] MEDS ORDERED: niCARdipine 25 MG in Sodium Chloride 0.9% 250 ML 240 ML IVPB SCH (13:15)
--- NOTE | 2020-08-25 13:51 | PDOC.BPN ---
- Brief Progress Note Encounter Date: 08/25/20 Encounter Time: 13:[address] Ernie Trujillo MD with Neurosurgery at [facility] in [place], [place] via transfer center facilitation. Reviewed TPA eligibility criteria and with patient's most recent INR being 1.7 he concluded that she was in fact a candidate for TPA therapy. Dr. Trujillo also reported that she was a candidate for surgical thrombectomy for reported left ICA thrombus with extension into MCA seen on her head and neck CTA. Confirmed dosing for TPA with 6.6 mg bolus over 1 minute & 59.1 mg infusion over 1 hour to be started SHERIDAN prior to transfer if family was agreeable to this. Explained risks of intervention to daughter at bedside including severe life-threatening hemorrhage and permanent neurological deficits & daughter agreed to proceed with TPA & transfer for surgery. On arrival to bedside, flight team discussed need for intubation with daughter given intermittent apnea since transfer to [facility] & daughter agreed to intubation prior to transfer. TPA was initiated and following intubation and patient was transferred to [facility] at [address], [place] [address].
[2020-08-25 14:56] VITALS: BP 99/81
--- NOTE | 2020-08-26 09:28 | CT ---
CT ANGIOGRAM NECK WITH CONTRAST CT ANGIOGRAM BRAIN WITH CONTRAST: DATE: 08/25/2020 10:50 AM HISTORY: 75-year-old female with acute stroke: Acute right facial droop and right-sided weakness, with altered mental status. Dr. De La Torre discussed the findings by telephone with Dr. Evans at 11:14 AM 08/25/2020 TECHNIQUE: After IV contrast injection, arterial bolus chasing technique scan performed from pulmonic trunk to v ertex of head. Coronal and sagittal 3-D MIP reconstructions. FINDINGS: There is thrombus, probably acute, beginning at the origin of the left internal carotid artery, causi ng complete occlusion that begins approximately 5 mm distal to the origin, with clot causing complete occlusion of the rest of the cervical internal carotid artery and left carotid siphon. There is either thin calcification or small amount of contrast in the medial peripheral lumen of the left supraclinoid carotid. Total occlusion of left middle cerebral artery, including entire M1 segment, all M2 segments, and all peripheral branches. Via anterior communicating artery, a small medial distal segment of the A2 segment, and the entire A1 segment, of the left anterior cerebral artery, have flow. The contralateral right MCA, A1 and A2 segments of right MEDINA, intracranial vertebral, basilar, bilate ral posterior cerebral, and superior cerebellar, arteries, are patent. Moderate-sized old right MCA territory infarction involving right perisylvian lateral frontal lobe, a nterior temporal lobe, and right external capsule. Bovine origin of left common carotid artery. No high-grade stenosis of brachiocephalic artery. No high-grade stenosis of right subclavian, left subclavian, left common carotid. Mild stenosis at origin of right common carotid due to tortuosity and kink. No stenosis of right internal carotid. Moderate to severe stenoses at origins of bilateral vertebral arteries. Left vertebral artery is slightly dominant. Scattered mild tiny calcified plaque at left carotid bulb. 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
--- NOTE | 2020-08-26 14:20 | DIS ---
DATE OF ADMISSION: 08/17/2020 DATE OF DISCHARGE: 08/25/2020 RESIDENT: Marcie Tracy MD ADMITTING ATTENDING: Felicitas Brown MD DISCHARGE ATTENDING: Patrica Antonio MD CONSULTS: 1. Cardiology, Dr. Morrissey. 2. Case Management. 3. PT/OT. PROCEDURE AND IMAGES: 1. Chest x-ray on 08/17/2020; markedly enlarged cardiac silhouette, pulmonary vascular congestion, and hazy density in the lung bases with probable small bilateral pleural effusions. Findings suggest pulmonary edema. Prominent cardiac silhouette may signify cardiomegaly and/or pericardial fluid. Recommend followup and imaging following treatment. 2. Chest x-ray on 08/19/2020, worsened [id number] CHF. 3. Chest thorax CTA on 08/20/2020, mild decompensated congestive heart failure. No pulmonary embolism. 4. Chest x-ray on 08/23/2020, significant improvement. Mild residual pulmonary vascular prominence. No edema. 5. CT angio on 08/25/2020; acute, complete occlusion of essentially entire left internal carotid artery and entire left MCA, including proximal and distal branch. 6. Brain CT on 08/25/2020, no CT evidence of acute intracranial process. PRIMARY DIAGNOSIS: Acute hypercapnic respiratory failure secondary to congestive heart failure exacerbation. SECONDARY DIAGNOSES: 1. History of cerebrovascular accident. 2. Hypokalemia. 3. Hypochloremia. 4. Encephalopathy secondary to hospital delirium and hypercapnic state. 5. Hypertension. 6. Urinary tract infection. 7. Atrial fibrillation. 8. Hyperlipidemia. DISCHARGE MEDICATIONS: 1. Vitamin D3 400 units p.o. daily. 2. Atorvastatin 40 mg p.o. at bedtime. 3. Ubidecarenone 300 mg p.o. b.i.d. 4. Nicardipine 25 mg IV piggyback. 5. Coreg 1.5625 mg p.o. b.i.d. with meals. DISCONTINUED MEDICATIONS: 1. Furosemide 20 mg p.o. daily. 2. Warfarin 2.5 mg p.o. Monday, , Monday, and Monday. 3. Warfarin 5 mg p.o. Monday, Monday, and Monday. HISTORY OF PRESENT ILLNESS AND HOSPITAL COURSE: The patient is a 75-year-old female with past medical history of CHF and atrial fibrillation, who presented for shortness of breath. The daughter reported that the patient was increasingly lethargic and weak on day of admission with the inability to lie flat and wheezing along with shortness of breath. The daughter then took the patient to clinic. The patient was found to be somnolent during the exam with O2 sats in the 60s. The patient was then directed to go to the hospital. While hospitalized, the patient was treated for acute hypercapnic respiratory failure secondary to CHF exacerbation. She received IV Lasix and metolazone, which was decreased as necessary to 20 mg of p.o. Lasix twice a day. The patient was originally treated on tele; however, on August 19, the patient's pCO2 was found to be 136 and the patient was urgently transferred to the [facility] and started on BiPAP. After transfer, treatment with BiPAP, and continued diuresis, the patient's status improved including her pCO2 and fluid status. She was then transferred to [facility] with no oxygen requirements during the day and CPAP at night for likely undiagnosed sleep apnea. The patient was also treated with acetazolamide for contraction alkalosis, likely secondary to diuresis. The patient's electrolytes were also monitored closely and repleted as necessary. The patient did struggle with encephalopathy secondary to hypercapnia and hospital delirium. She was also noted to have a poor appetite and difficulty sleeping at night, for which she was started on mirtazapine while hospitalized. While hospitalized, the patient was found to have a UTI and was treated with Rocephin for 3 days. She remained in persistent atrial fibrillation and came into the hospital on her home dose of warfarin, however, had not taken her warfarin on day of admission. The daughter reported difficulty controlling her INR and she was noted to be supratherapeutic at a prior clinic visit. At that time, her warfarin was adjusted. During her admission, her INR was subtherapeutic and was found to be 1.4 on day of admission. We attempted to adjust the patient's warfarin while hospitalized. However, it remained subtherapeutic reaching a max INR of 1.8. There were multiple discussions with the patient's daughter regarding continuing the medication as the patient is elderly and was thought to be an increased risk of falls as she was quite weak and having difficulty working with PT. During the patient's hospital stay, she was seen by Dr. Morrissey, who recommended continuing current diuresis and just hold her beta-sola while in acute exacerbation. After her exacerbation was treated, she was started back on Coreg at a different dose as mentioned above. On 08/25, a code green was called on the patient at 10:30 in the morning for acute change in mental status and unresponsiveness. According to reports, the patient began working with PT when she slumped over in bed. Both the daughter and nursing staff could not get the patient to respond, and a code green was initiated. Upon arrival to the patient's room, she was in bed with her eyes closed and not responding to verbal stimuli. She was noted to have a left-sided facial droop and shallow breathing. The patient did respond to painful stimuli at that time. Accu-Chek showed glucose around 150. CBC, CMP, and PT/INR were obtained. A code stroke was called and the patient was sent to CT scanner, and a CTA was also performed, which showed an acute occlusion of her entire left internal carotid artery extending into her MCA. After returning from imaging, the patient was admitted to [facility]. Dr. Ernie Trujillo with Neurosurgery at [facility] in [place], [place], was called and a transfer was initiated. The patient's INR at time of code green was 1.7 and he concluded that she was in fact a candidate for tPA therapy. He also believed that she was a candidate for surgical thrombectomy. Dr. Trujillo confirmed the dosing of tPA of 6.6 mg bolus over 1 minute and 59.1 mg infusion over 1 hour to be started as soon as possible prior to transfer. The risks of this medication were explained to the daughter including severe life-threatening hemorrhage and permanent neurological deficits. The daughter agreed and asked us to proceed with the therapy. The flight team arrived at the patient's bedside. The need for intubation was discussed with the daughter and the daughter agree to intubation prior to transfer. Following tPA initiation and intubation, the patient was transferred to [facility] for further therapy. DISPOSITION: Guarded. DISCHARGE INSTRUCTIONS: LOCATION: [facility] in [place], [place]. FOLLOWUP: Pending discharge from [facility] in [place], [place]. The patient will need followup with primary care provider, Dr. Lester, upon discharge. Job ID: [id number]
== END 2020-08-25 13:52 | disposition short-term general hospital (02) | DRG 291 ==
LOC: ERS 15:22 → 2NO 17:30 → IMCU/EMU 08-19 12:15 → 2SE 08-23 02:31 → IMCU/EMU 08-25 12:06
PROVIDERS: ADMIT Family Medicine; ATTEND Family Medicine
DX: I11.0 Hypertensive heart disease with heart failure (principal); J96.01 Acute respiratory failure with hypoxia; J96.02 Acute respiratory failure with hypercapnia; N39.0 Urinary tract infection, site not specified; I48.20 Chronic atrial fibrillation, unspecified; G93.49 Other encephalopathy; L03.90 Cellulitis, unspecified; E11.9 Type 2 diabetes mellitus without complications; I50.33 Acute on chronic diastolic (congestive) heart failure; Z66 Do not resuscitate; Z20.828 Contact with and (suspected) exposure to other viral communicable diseases; E78.5 Hyperlipidemia, unspecified; I05.0 Rheumatic mitral stenosis; R77.8 Other specified abnormalities of plasma proteins; E87.6 Hypokalemia; E87.8 Other disorders of electrolyte and fluid balance, not elsewhere classified; R41.0 Disorientation, unspecified; Z79.01 Long term (current) use of anticoagulants; Z79.899 Other long term (current) drug therapy; Z79.82 Long term (current) use of aspirin; Z86.73 Personal history of transient ischemic attack (TIA), and cerebral infarction without residual deficits; Z90.49 Acquired absence of other specified parts of digestive tract; Z98.890 Other specified postprocedural states
CPT/HCPCS: 36415; 36416; 36600; 70450; 70496; 70498; 71045; 71275; 80048; 80053; 80076; 81003; 81015; 82550; 82553; 82805; 83605; 83735; 83880; 84100; 84145; 84484; 85025; 85610; 85730; 87086; 87635; 90471; 90662; 93005; 93306; 96374; G0008; J0696; J1940; J2997; J3475; J3480; J3490; Q9967; U0003